=== PATIENT | female | born 1930 | race Caucasian/White ===

== ENCOUNTER → 2016-05-08 | Outpatient (CLI) | payer MEDICARE, OTHER ==
[~2016-05-08] MED LIST: ALDA25TA2 PO; ASPI81TA83 OR; ASPI81TA85 PO; ATEN25TA PO; BABY81CH PO; BACT800T5 PO; CLAR10CA3 PO; ELIQ2.5T PO; EPINEPHRINE; FLON0.054; FURO20TA2 PO; LISI20TA5 OR; MULTCAP PO; NITR0.4S SL; POTA10CA PO; SPIR25TA2 PO; THERGRAN PO; VITA100072 PO; VITA50003 PO; VITMTA PO; ZOCO10TA PO; ZOCO5TAB PO; ZYVO100T PO
--- NOTE | 2016-05-08 14:10 | REP ---
Chest x-ray PA and lateral 05/08/2016. Clinical history: Cough. Comparison: 03/20/2016, 03/06/2016. Findings: Lungs are well inflated. The bilateral pleural effusions are smaller than on the previous examination. Some linear atelectatic changes in both lower lung zones left more than right. Cardiomegaly with left atrial and ventricular enlargement is noted. The aorta is calcified tortuous and without aneurysm. Airway is intact. There is some venous hypertension without pulmonary edema. I see underlying interstitial changes without definite interstitial edema or Shanice B lines. No parenchymal mass, nodule or dense consolidation. Bones show demineralization with some degenerative change. Impression: 1. Cardiomegaly with left ventricular enlargement. Some mild venous hypertension without edema. There is small bilateral effusions. There is underlying interstitial fibrotic change without definite interstitial edema. 2. Tortuous calcified aorta without aneurysm. 3. Airway intact. Bones demineralized. Signed by Lj Esparza MD 05/08/2016 02:57 P
== END ==
LOC: M WUC 11:24
PROVIDERS: ATTEND Physician Assistant
DX: R93.1 Abnormal findings on diagnostic imaging of heart and coronary circulation (principal)

== ENCOUNTER → 2016-05-08 | Outpatient (CLI) | payer MEDICARE, OTHER ==
[2016-05-08 17:25] LABS: CALCIUM LEVEL 9.2 MG/DL (8.8-10.2); CREATININE FOR GFR 1.09 MG/DL (0.55-1.02); GLOMERULAR FILTRATION RATE 50.5 (>32); POTASSIUM SERUM 4.2 MEQ/L (3.5-5.1)
== END ==
LOC: M WUC 11:30
PROVIDERS: ATTEND Physician Assistant Medical
DX: I50.20 Unspecified systolic (congestive) heart failure (principal); R93.1 Abnormal findings on diagnostic imaging of heart and coronary circulation

== ENCOUNTER → 2016-07-03 | Outpatient (CLI) | payer MEDICARE, OTHER ==
[2016-07-03 19:05] LABS: CALCIUM LEVEL 8.5 MG/DL (8.8-10.2); CREATININE FOR GFR 1.08 MG/DL (0.55-1.02); GLOMERULAR FILTRATION RATE 51.1 (>32); POTASSIUM SERUM 3.3 MEQ/L (3.5-5.1)
== END ==
LOC: M WUC 14:29
PROVIDERS: ATTEND Physician Assistant Medical
DX: I50.20 Unspecified systolic (congestive) heart failure (principal)

== ENCOUNTER → 2016-08-24 | Outpatient (CLI) | payer MEDICARE, OTHER ==
[2016-08-24 14:24] LABS: BASO % 0.7 % (0.0-1.0); EOS # 0.2 K/mm3 (0.0-0.50); EOS % 4.6 % (0.0-3.0); LYMPH # 2.2 K/mm3 (1.5-4.5); LYMPH % 40.4 % (24.0-44.0); MEAN CORPUSCULAR HEMOGLOBIN 31.5 pg (27.0-33.0); MEAN CORPUSCULAR HGB CONC 32.4 g/dl (32.0-36.5); MEAN CORPUSCULAR VOLUME 97.2 fl (80.0-96.0); MONO # 0.3 K/mm3 (0.0-0.8); NEUTROPHILS # 2.6 K/mm3 (1.8-7.7); NEUTROPHILS % 47.8 % (36.0-66.0); RED CELL DISTRIBUTION WIDTH 13.4 % (11.5-14.5); WHITE BLOOD COUNT 5.5 K/mm3 (4.0-10.0)
[2016-08-24 14:26] LABS: ALBUMIN 3.1 GM/DL (3.2-5.2); ALBUMIN/GLOBULIN RATIO 0.86 (1.00-1.93); BILIRUBIN,TOTAL 1.4 MG/DL (0.2-1.0); CALCIUM LEVEL 9.2 MG/DL (8.8-10.2); CREATININE FOR GFR 1.24 MG/DL (0.55-1.02); GLOMERULAR FILTRATION RATE 43.6 (>32); TOTAL PROTEIN 6.7 GM/DL (6.4-8.2)
== END ==
LOC: M WUC 11:12
PROVIDERS: ATTEND Physician Assistant Medical
DX: I50.20 Unspecified systolic (congestive) heart failure (principal)

== ENCOUNTER → 2016-09-11 | Outpatient (CLI) | payer MEDICARE, OTHER ==
[2016-09-11 17:32] LABS: CALCIUM LEVEL 9.2 MG/DL (8.8-10.2); CREATININE FOR GFR 1.16 MG/DL (0.55-1.02); POTASSIUM SERUM 4.2 MEQ/L (3.5-5.1)
== END ==
LOC: M WUC 11:38
PROVIDERS: ATTEND Physician Assistant Medical
DX: I50.20 Unspecified systolic (congestive) heart failure (principal)

== ENCOUNTER → 2016-11-23 | Outpatient (CLI) | payer MEDICARE, OTHER ==
[~2016-11-23] MED LIST changes: +VITA1CAP40 PO; -VITA50003 PO
[2016-11-23 14:04] LABS: EOS # 0.3 K/mm3 (0.0-0.50); EOS % 6.2 % (0.0-3.0); MEAN CORPUSCULAR HEMOGLOBIN 32.4 pg (27.0-33.0); MEAN CORPUSCULAR VOLUME 95.3 fl (80.0-96.0); MONO # 0.3 K/mm3 (0.0-0.8); MONO % 6.4 % (0.0-5.0); NEUTROPHILS # 2.4 K/mm3 (1.8-7.7); NEUTROPHILS % 47.6 % (36.0-66.0); RED CELL DISTRIBUTION WIDTH 14.1 % (11.5-14.5); WHITE BLOOD COUNT 5.1 K/mm3 (4.0-10.0)
[2016-11-23 14:06] LABS: ALBUMIN 3.3 GM/DL (3.2-5.2); ALBUMIN/GLOBULIN RATIO 0.89 (1.00-1.93); BILIRUBIN,TOTAL 2.4 MG/DL (0.2-1.0); CALCIUM LEVEL 9.1 MG/DL (8.8-10.2); CREATININE FOR GFR 1.25 MG/DL (0.55-1.02); GLOMERULAR FILTRATION RATE 43.2 (>32); POTASSIUM SERUM 4.4 MEQ/L (3.5-5.1)
== END ==
LOC: M WUC 08:47
PROVIDERS: ATTEND Physician Assistant Medical
DX: I50.20 Unspecified systolic (congestive) heart failure (principal)

== ENCOUNTER → 2016-12-12 | Outpatient (CLI) | payer MEDICARE, OTHER ==
[2016-12-12 17:45] LABS: CALCIUM LEVEL 8.7 MG/DL (8.8-10.2); CREATININE FOR GFR 1.17 MG/DL (0.55-1.02); GLOMERULAR FILTRATION RATE 46.6 (>32); POTASSIUM SERUM 4.4 MEQ/L (3.5-5.1)
== END ==
LOC: M WUC 12:33
PROVIDERS: ATTEND Physician Assistant Medical
DX: I50.20 Unspecified systolic (congestive) heart failure (principal)

== ENCOUNTER 2017-03-10 13:53 | Inpatient (IN) | payer MEDICARE, OTHER ==
[~2017-03-10] VITALS: Ht 157.5 cm; Wt 56.2 kg
[2017-03-10 15:35] LABS: BASO % 0.6 % (0.0-1.0); EOS # 0.3 10^3/uL (0.0-0.50); IMMATURE GRANULOCYTE % 0.3 % (0-0); LYMPH # 2.6 10^3/uL (1.5-4.5); LYMPH % 38.8 % (24.0-44.0); MEAN CORPUSCULAR HEMOGLOBIN 30.8 pg (27.0-33.0); MEAN CORPUSCULAR HGB CONC 33.1 g/dl (32.0-36.5); MEAN CORPUSCULAR VOLUME 93.3 fl (80.0-96.0); MONO # 0.5 10^3/uL (0.0-0.8); MONO % 7.9 % (0.0-5.0); NEUTROPHILS # 3.3 10^3/uL (1.8-7.7); NEUTROPHILS % 48.4 % (36.0-66.0); PLATELET COUNT, AUTOMATED 152 10^3/uL (150-450); RED CELL DISTRIBUTION WIDTH 14.4 % (11.5-14.5); WHITE BLOOD COUNT 6.8 10^3/uL (4.0-10.0)
[2017-03-10 15:38] LABS: INR 1.31
[2017-03-10 15:50] LABS: ALBUMIN 3.3 GM/DL (3.2-5.2); ALBUMIN/GLOBULIN RATIO 0.92 (1.00-1.93); BILIRUBIN,DIRECT 0.8 MG/DL (0.0-0.2); CALCIUM LEVEL 8.9 MG/DL (8.8-10.2); CREATININE FOR GFR 1.25 MG/DL (0.55-1.02); GLOMERULAR FILTRATION RATE 43.1 (>32); POTASSIUM SERUM 3.5 MEQ/L (3.5-5.1); TOTAL PROTEIN 6.9 GM/DL (6.4-8.2)
[2017-03-10] MEDS ORDERED: ISOVUE-370 76% 100ML VIAL (Q9967) As Ordered ONE (16:11)
[2017-03-10] MEDS ORDERED: LASI40TA PO ×2 (18:10)
[2017-03-10] MEDS ORDERED: POTA20TA PO (18:10)
[2017-03-10] MEDS ORDERED: ONDANSETRON 4MG/2ML VIAL (J2405) IV PRN (18:30)
[2017-03-10] MEDS: ACETAMINOPHEN TAB 650MG DOSE (2X325MG) PO PRN (19:08)
[2017-03-10] MEDS: FUROSEMIDE 40 MG/4 ML VIAL (J1940) IV SCH (19:08)
--- NOTE | 2017-03-10 20:39 | HPEPDOC ---
General Date of Admission 03/10/2017 Other Providers Primary care provider: ARMIDA Rush Acquisition Editor: Dr. Snow Attending Physician: RORY COLON MD Chief Complaint The patient is a 86-year-old female admitted with a reason for visit of Weakness. Source: Patient, Family, Old records Exam Limitations: Mild cognitive slowing Associated Symptoms: Chest Pain, Shortness of breath, Weakness History of Present Illness Ms. Hernandez is an 86-year-old female who presents to [facility]'s Emergency Department with weakness and chest pain. She is accompanied by her . Past medical history is significant for: diastolic congestive heart failure with an EF of 60%, coronary artery disease, hypertension, dyslipidemia, severe aortic stenosis, history of diverticulitis, history of MRSA, osteoarthritis, adenomatous polyp, atrial fibrillation, left index finger osteomyelitis. Patient states that she developed symptoms this morning where her legs were shaking, she had no energy, felt weak, and had diffuse body-wide pain. She felt exhausted. She subsequently developed chest pain, which she described as "light" with associated radiation up her neck and down her left arm. No diaphoresis. This pain lasted approximately 10-15 minutes. All these symptoms came on abruptly without provocation. As quickly as they came on, they abated in approximately 10 minutes. The patient still felt quite anxious and wanted to be evaluated in the Emergency Department. She is currently admitting to continued numbness and tingling in her upper and lower extremities with continued pain in her legs. She does not, nor during my entire evaluation, admit to any kind of abdominal pain, tenderness, or distention. Further denies fever, night sweats, chills, itchy/watery eyes, runny nose, sore throat, cough, nausea, vomiting, hearing changes, headache, peripheral edema. She does state that she feels as though this can all be attributed to a medication that her primary care provider has her on. However, in clarification, her states that her ultimate hoops scoreboard operator has her on a medication, Lasix, for her congestive heart failure that was diagnosed several years ago (2014). They have regular appointments with their primary care provider who monitors labs. The patient recently saw her PCP in February and has another appointment scheduled in early March for follow-up labs. The patient's states that her PCP also has her on potassium since she is on the Lasix. According to the , the PCP is regularly monitoring the patient in order to adjust her Lasix dosage. She is on quite a large dose at 240mg divided daily dose. The patient is aware of her severe aortic stenosis and has discused with her ultimate hoops scoreboard operator her wish to not pursue any further intervention. During my evaluation, the patient re- iterated that she does not want any further intervention regarding her severe aortic stenosis. Work-up in the Emergency department included a BNP which was 2316. An EKG revealed atrial fibrillation with an occasional PVC. Vital signs were within optimal range. CBC was within normal range. Besides a slight worsening of patient's creatinine at 1.25, the BMP was essential negative. According to the Emergency Department personnel, patient was complaining of abdominal pain so imaging was obtained. Reports are pending. Hospitalist service was consulted and patient was admitted for further medical management. Home Medications Scheduled Apixaban Base (Eliquis) 2.5 Mg Tab, 2.5 MG PO BID, (Reported) Ergocalciferol (Vitamin D) 50,000 Unit Cap, 50,000 UNIT PO Q2WK, (Reported) TAKES EVERY OTHER SUNDAY Furosemide (Lasix) 40 Mg Tab, 80 MG PO BID, (Reported) QAM & 1500 Furosemide (Lasix) 40 Mg Tab, 40 MG PO DAILY, (Reported) @ 1100 Multivitamins *[facility] STOCKED* (Thera M Plus *[facility] STOCK[facility]*) 1 Tab Tab, 1 TAB PO DAILY, (Reported) Potassium Chloride (Klor-Con M20) 20 Meq Tabcr, 40 MEQ PO BID, (Reported) Allergies Coded Allergies: Bee Venom (Unverified Allergy, Severe, ANAPHYLAXIS, 09/23/14) Codeine (Verified Allergy, Unknown, UNKNOWN, 07/29/12) Morphine (Verified Adverse Reaction, Mild, LOW BP, 09/23/14) Past Medical History Medical History 1. Congestive heart failure, diastolic, EF 60% 2. Coronary artery disease 3. Hypertension 4. Dyslipidemia 5. Severe aortic stenosis 6. History of diverticulitis 7. History of MRSA 8. Osteoarthritis 9. Adenomatous polyp 10. Osteomyelitis of left index finger Surgical History 1. Colonoscopy 2. Right knee arthroscopy 3. Left index finger paroncychia irrigation and debridement 4. Left index finger removal of nail plate 5. Hysterectomy 6. Appendectomy Family History Father: , 75, old age, heart disease Mother: , 60s, surgical complications Brother: , 86, pneumonia Son: , 50, stage IV cancer Social History Lives with . Eight adult children. 19 grandchildren. No pets in the home. Prior employment in the [employer] business. Denies tobacco use, ever. Drinks the occasional beer. Denies illicit drug use. Admits to travel, but nothing recently. Review of Symptoms Constitutional: Reports: Weakness, Fatigue, Denies: Chills, Fever, Malaise, Night Sweats Eyes: Denies: Pain, Vision change, Conjunctivae inflammation, Eyelid inflammation ENT: Denies: Head Aches, Dysphagia, Sinus Congestion, Post Nasal Drip, Sore Throat, Epistaxis Skin: Denies: Rash, Lesions, Jaundice, Bruising Pulmonary: Reports: Dyspnea, Denies: Cough Cardiovascular: Reports: Chest Pain, Orthopnea, Denies: Palpitations, Paroxysmal Noc. Dyspnea, Edema, Lt Headedness Gastrointestinal: Denies: Nausea, Vomiting, Abdominal Pain, Diarrhea, Constipation, Melena, Hematochezia Genitourinary: Denies: Dysuria, Frequency, Hematuria Hematologic: Denies: Bruising, Bleeding Excessively, Petecchia, Purpura, Enlarged Lymph Nodes Musculoskeletal: Reports: Leg Pain Neurological: Reports: Weakness, Numbness (Arms, legs) Physical Examination General Exam: Positive: Alert, Cooperative, No Acute Distress Eye Exam: Positive: PERRLA, Conjunctiva & lids normal, EOMI, Other Eye Symptoms (Some mild watery discharge noted from eyes), Negative: Sclera icteric, Ptosis ENT Exam: Positive: Atraumatic, Mucous membr. moist/pink, Pharynx Normal, Tongue Midline, Negative: Pharyngeal Edema, Nares Patent Neck Exam: Positive: Supple, +2 carotid pulse wo bruit, Negative: JVD, thyromegaly, Lymphadenopathy Chest Exam: Positive: Clear to auscultation, Normal air movement, Diminished ( At lung bases, bilaterally) Heart Exam: Positive: Irregular Rhythm, Murmurs (Grade II-III/ systolic murmur appreciated along the right sternal border, 2nd intercostal space) Telemetry: Positive: Atrial fibrillation Abdomen Exam: Positive: Normal bowel sounds, Soft, Other (Tympanic throughout) , Negative: Tenderness, Hepatospenomegaly, Mass Extremity Exam: Negative: Clubbing, Cyanosis, Edema, Normal pulses (Atrial fibrillation), Tenderness, Swelling Skin Exam: Negative: Rash, Lesion Neuro Exam: Positive: Normal Speech, Cranial Nerves 3-12 NL Other physical findings Chest x-ray IMPRESSION: Report pending Abdominal x-ray IMPRESSION: Report pending CT abdomen and pelvis IMPRESSION: Report pending CT chest angiography IMPRESSION: Report pending Vital Signs Vital Signs Date Time Temp Pulse Resp B/P (MAP) Pulse Ox O2 Delivery O2 Flow Rate FiO2 03/10/17 17:09 Room Air 03/10/17 16:53 84 98 03/10/17 16:48 123/79 (94) 03/10/17 15:23 20 03/10/17 13:54 98.2 Height (in): 62 Weight (kg): 54.5 BMI (kg): 22 Laboratory Data Labs 24H Laboratory Tests 2 03/10/17 14:49: Immature Granulocyte % (Auto) 0.3H, White Blood Count 6.8, Red Blood Count 5.06 , Hemoglobin 15.6, Hematocrit 47.2H, Mean Corpuscular Volume 93.3, Mean Corpuscular Hemoglobin 30.8, Mean Corpuscular Hemoglobin Concent 33.1, Red Cell Distribution Width 14.4, Platelet Count 152, Neutrophils (%) (Auto) 48.4, Lymphocytes (%) (Auto) 38.8, Monocytes (%) (Auto) 7.9H, Eosinophils (%) (Auto) 4.0H, Basophils (%) (Auto) 0.6, Neutrophils # (Auto) 3.3, Lymphocytes # (Auto) 2.6, Monocytes # (Auto) 0.5, Eosinophils # (Auto) 0.3, Basophils # (Auto) 0.0, Immature Granulocyte # (Auto) 0.0, Nucleated Red Blood Cells % (auto) 0.0, Prothrombin Time 16.6H, Prothromb Time International Ratio 1.31, Activated Partial Thromboplast Time 31.2, Anion Gap 7L, Glomerular Filtration Rate 43.1, Calcium Level 8.9, Aspartate Amino Transf (AST/SGOT) 32, Alanine Aminotransferase (ALT/SGPT) 20, Alkaline Phosphatase 103, Total Bilirubin 2.0H, Direct Bilirubin 0.8H, Total Creatine Kinase 93, Creatine Kinase MB 2.5, Creatine Kinase MB Relative Index 2.68, Troponin I 0.08, UD-Kgd-P-Type Natriuretic Peptide 2316H, Total Protein 6.9, Albumin 3.3, Albumin/Globulin Ratio 0.92L, Lipase 159 03/10/17 15:24: CBC/BMP Laboratory Tests 03/10/17 14:49 Red Blood Count 5.06, Mean Corpuscular Volume 93.3, Mean Corpuscular Hemoglobin 30.8, Mean Corpuscular Hemoglobin Concent 33.1, Red Cell Distribution Width 14.4 , Neutrophils (%) (Auto) 48.4, Lymphocytes (%) (Auto) 38.8, Monocytes (%) (Auto ) 7.9 H, Eosinophils (%) (Auto) 4.0 H, Basophils (%) (Auto) 0.6, Neutrophils # ( Auto) 3.3, Lymphocytes # (Auto) 2.6, Monocytes # (Auto) 0.5, Eosinophils # (Auto ) 0.3, Basophils # (Auto) 0.0 Plan / VTE VTE Prophylaxis Ordered?: Yes (Eliquis) Plan Plan Congestive heart failure exacerbation due to severe aortic stenosis - Admit to PCU - Lasix with net negative balance - Obtain updated echocardiogram - Strict I/O's - VS - Daily CBC and BMP - 2g salt diet - Cardiology consult - Optimize fluid status and diuretic - Could consider palliative discussion as patient has verbally iterated that she does not want intervention performed for her severe Pain, diffuse - Imaging obtained - Obtaining abdominal ultrasound - No antibiotics needed at this time - Trend CRP - Trend cardiac markers (first set were within optimal range) Atrial fibrillation - Controlled - No beta adebayo due to severe aortic stenosis - Continue Eliquis Hypertension - Adjusted Lasix dose - Stable Disposition Admit: PCU Anticipated hospitalization: < 2 nights Attending: Dr. Estrada IVF: Discontinue Diet: Continue Current (No added salt diet) Activity: Continue Current Medications: Change to IV (Lasix) Diagnostics: Check Labs, Repeat Labs in AM, TTE Anticipated Discharge: Home CLAUDE GURROLA Mar 10, 2017 18:06
[2017-03-10 20:45] VITALS: BP 120/73
[2017-03-10] MEDS ORDERED: CARVedilol 3.125 MG TAB PO SCH (21:00)
[2017-03-10] MEDS: APIXABAN 2.5 MG TAB (ELIQUIS) PO SCH (21:56)
[2017-03-10] MEDS: SENOKOT S TAB PO SCH (21:56)
[2017-03-11] VITALS (7 sets, daily range): BP systolic 98–144; BP diastolic 58–82
[2017-03-11] MEDS: FUROSEMIDE 40 MG/4 ML VIAL (J1940) IV SCH ×3 (00:11→17:00)
[2017-03-11 06:08] LABS: MEAN CORPUSCULAR HGB CONC 33.5 g/dl (32.0-36.5); MEAN CORPUSCULAR VOLUME 92.6 fl (80.0-96.0); PLATELET COUNT, AUTOMATED 140 10^3/uL (150-450); RED CELL DISTRIBUTION WIDTH 14.3 % (11.5-14.5); WHITE BLOOD COUNT 5.7 10^3/uL (4.0-10.0)
[2017-03-11 06:22] LABS: BILIRUBIN,TOTAL 2.1 MG/DL (0.2-1.0); CALCIUM LEVEL 8.1 MG/DL (8.8-10.2); CREATININE FOR GFR 1.15 MG/DL (0.55-1.02); GLOMERULAR FILTRATION RATE 47.4 (>32); MAGNESIUM LEVEL 2.1 MG/DL (1.8-2.4); TOTAL PROTEIN 5.8 GM/DL (6.4-8.2)
[2017-03-11 06:30] LABS: ALBUMIN/GLOBULIN RATIO 0.81 (1.00-1.93)
[2017-03-11 06:31] LABS: ALBUMIN 2.6 GM/DL (3.2-5.2)
[2017-03-11] MEDS ORDERED: POTASSIUM CHLORIDE 10 MEQ SR TABLET PO ONE (06:45)
--- NOTE | 2017-03-11 08:47 | REP ---
CHEST, PORTABLE: AP portable view of the chest is performed and compared to prior study of 05/08/2016. There is cardiomegaly again noted. I do not see evidence of an acute infiltrate. There is blunting of the costophrenic angles bilaterally which is stable representing chronic small amount of bilateral pleural fluid or thickening. There is calcification and tortuosity of the thoracic aorta. There is curvature of the thoracolumbar spine convex to the left with degenerative changes. IMPRESSION: Stable cardiomegaly and stable small amount of bilateral pleural fluid or thickening. Signed by Mike Turk MD 03/11/2017 05:27 P
--- NOTE | 2017-03-11 08:51 | REP ---
KUB ABDOMEN AND PELVIS: Two KUB films of abdomen and pelvis are performed. There is no evidence of small bowel obstruction. Mild air is scattered throughout the GI tract without significant bowel distention. Diffuse vascular calcifications are present. There are multiple phleboliths in the pelvis. There is a diffuse osteopenia. There are degenerative changes of the spine and hips. IMPRESSION: No evidence of bowel obstruction. Diffuse vascular calcifications in the abdomen and pelvis. Signed by Mike Turk MD 03/11/2017 05:27 P
[2017-03-11] MEDS: SENOKOT S TAB PO SCH ×2 (09:00→20:55)
[2017-03-11] MEDS: APIXABAN 2.5 MG TAB (ELIQUIS) PO SCH ×2 (09:23→20:55)
[2017-03-11] MEDS: PANTOPRAZOLE 40MG TAB (PROTONIX) PO SCH (09:23)
[2017-03-11] MEDS: MULTIVITAMINS/MINERALS THERAP 1 TAB PO SCH (09:23)
--- NOTE | 2017-03-11 09:25 | REP ---
CT ANGIOGRAM OF THE CHEST: TECHNIQUE: Axial contrast enhanced images from the thoracic inlet to the upper abdomen using 100 mL Isovue 370 intravenous contrast material with multiplanar reformations. There is no CT evidence of pulmonary embolism. There is no thoracic aortic aneurysm or dissection. There are moderate atherosclerotic calcifications of the thoracic aorta. There is mild cardiomegaly. There are small bilateral pleural effusions. There is mild bibasilar atelectasis/infiltrate. No adenopathy is seen in the chest. There is no pericardial effusion. Subcentimeter nodule in the right middle lobe, another in the right lower lobe, another in the left upper lobe and yet another in the left lower lobe are stable compared to prior CT of the chest 06/27/2010. IMPRESSION: No CT evidence of pulmonary embolism. Cardiomegaly. Small bilateral effusions with mild bibasilar atelectasis/infiltrate. Signed by Mike Turk MD 03/11/2017 05:28 P
--- NOTE | 2017-03-11 09:49 | REP ---
CT ABDOMEN AND PELVIS WITH IV CONTRAST: TECHNIQUE: Axial contrast enhanced images from the lung bases to the pubic symphysis using 100 mL Isovue 370 intravenous contrast material with multiplanar reformations. There is a cyst in the right lobe of the liver. The spleen appears unremarkable. Left adrenal nodule is stable compared to prior study of 01/16/2012 most consistent with an adenoma. Pancreas is unremarkable. Small cyst is seen in each kidney without hydronephrosis. There is ectasia of the abdominal aorta without aneurysm. I see no significant adenopathy in the abdomen or pelvis. No free air is seen. There is extensive sigmoid diverticulosis with mild thickening of a segment of the sigmoid and surrounding streaky density most consistent with sigmoid diverticulitis. There is mild free fluid in the pelvis. No pelvic mass is seen. IMPRESSION: Sigmoid diverticulitis. Mild free fluid. No free air. No other acute finding. Signed by Mike Turk MD 03/11/2017 05:29 P
--- NOTE | 2017-03-11 11:25 | IPNPDOC ---
Subjective Date Seen The patient was seen on 03/11/17. Subjective Chief Complaint/HPI The patient is a 86-year-old female admitted with a reason for visit of CHF. Events since last encounter feeling much better today. Feels stronger, denies any shakiness of the legs. denies any chest pains. no fever or chills, no abdominal pain , nausea or vomiting or diarrhea. Objective Physical Examination General Exam: Positive: Alert, Cooperative, No Acute Distress Eye Exam: Positive: PERRLA, Conjunctiva & lids normal, EOMI, Other Eye Symptoms (Some mild watery discharge noted from eyes), Negative: Sclera icteric, Ptosis ENT Exam: Positive: Atraumatic, Mucous membr. moist/pink, Pharynx Normal, Tongue Midline, Negative: Pharyngeal Edema, Nares Patent Neck Exam: Positive: Supple, +2 carotid pulse wo bruit, Negative: JVD, thyromegaly, Lymphadenopathy Chest Exam: Positive: Clear to auscultation, Normal air movement, Diminished ( At lung bases, bilaterally) Heart Exam: Positive: Irregular Rhythm, Murmurs (Grade II-III/ systolic murmur appreciated along the right sternal border, 2nd intercostal space) Telemetry: Positive: Atrial fibrillation Abdomen Exam: Positive: Normal bowel sounds, Soft, Other (Tympanic throughout) , Negative: Tenderness, Hepatospenomegaly, Mass Extremity Exam: Negative: Clubbing, Cyanosis, Edema, Normal pulses (Atrial fibrillation), Tenderness, Swelling Skin Exam: Negative: Rash, Lesion Neuro Exam: Positive: Normal Speech, Cranial Nerves 3-12 NL Assessment /Plan Problems (1) CHF (congestive heart failure) Status: Acute Problem Text: diastolic CHF will continue with IV lasix new echo pending. (2) Aortic stenosis Status: Chronic Problem Text: patient does not want surgery. wants only medical management. (3) HTN (hypertension) Status: Chronic (4) HLD (hyperlipidemia) Status: Chronic (5) CAD (coronary artery disease) Status: Chronic Problem Text: with history of AMI in the past. (6) Afib Status: Chronic Problem Text: on eliquis. Plan/VTE VTE Prophylaxis Ordered?: Yes (Eliquis) Plan IVF: Discontinue Diet: Continue Current (No added salt diet) Activity: Continue Current Medications: Change to IV (Lasix) Diagnostics: Check Labs, Repeat Labs in AM, TTE Anticipated Discharge: Home VS[facility] Vital Signs/I&O Vital Signs Date Time Temp Pulse Resp B/P (MAP) Pulse Ox O2 Delivery O2 Flow Rate FiO2 03/11/17 08:00 99.2 76 20 118/77 (91) 95 Room Air I&O- Last 24 Hours up to 6 AM 03/12/17 06:00 Intake Total 150 ml Output Total 575 ml Balance -425 ml Laboratory Data 24H LABS Laboratory Tests 2 03/10/17 14:49: Immature Granulocyte % (Auto) 0.3H, White Blood Count 6.8, Red Blood Count 5.06 , Hemoglobin 15.6, Hematocrit 47.2H, Mean Corpuscular Volume 93.3, Mean Corpuscular Hemoglobin 30.8, Mean Corpuscular Hemoglobin Concent 33.1, Red Cell Distribution Width 14.4, Platelet Count 152, Neutrophils (%) (Auto) 48.4, Lymphocytes (%) (Auto) 38.8, Monocytes (%) (Auto) 7.9H, Eosinophils (%) (Auto) 4.0H, Basophils (%) (Auto) 0.6, Neutrophils # (Auto) 3.3, Lymphocytes # (Auto) 2.6, Monocytes # (Auto) 0.5, Eosinophils # (Auto) 0.3, Basophils # (Auto) 0.0, Immature Granulocyte # (Auto) 0.0, Nucleated Red Blood Cells % (auto) 0.0, Prothrombin Time 16.6H, Prothromb Time International Ratio 1.31, Activated Partial Thromboplast Time 31.2, Anion Gap 7L, Glomerular Filtration Rate 43.1, Calcium Level 8.9, Aspartate Amino Transf (AST/SGOT) 32, Alanine Aminotransferase (ALT/SGPT) 20, Gamma Glutamyl Transpeptidase 57H, Alkaline Phosphatase 103, Total Bilirubin 2.0H, Direct Bilirubin 0.8H, Total Creatine Kinase 93, Creatine Kinase MB 2.5, Creatine Kinase MB Relative Index 2.68, Troponin I 0.08, C-Reactive Protein, Quantitative 0.47H, UI-Ash-P-Type Natriuretic Peptide 2316H, Total Protein 6.9, Albumin 3.3, Albumin/Globulin Ratio 0.92L, Lipase 159 03/10/17 15:24: Urine Appearance CLEAR, Urine Color YELLOW, Urine pH 7.0, Urine Specific [place] 1.004, Urine Protein NEGATIVE, Urine Glucose (UA) NEGATIVE, Urine Ketones NEGATIVE, Urine Urobilinogen 0.2, Urine Bilirubin NEGATIVE, Urine Leukocyte Esterase NEGATIVE, Urine Blood NEGATIVE, Urine Nitrite NEGATIVE, Urine WBC (Auto) 1, Urine RBC (Auto) 1, Urine Hyaline Casts (Auto) 0, Urine Bacteria (Auto) 1+H, Urine Squamous Epithelial Cells 0, Urine Mucus (Auto) SMALL , Urine Sperm (Auto) 03/10/17 19:54: Total Creatine Kinase 75, Creatine Kinase MB 2.3, Creatine Kinase MB Relative Index 3.06, Troponin I 0.09 03/11/17 05:17: Nucleated Red Blood Cells % (auto) 0.0, Anion Gap 8, Glomerular Filtration Rate 47.4, Calcium Level 8.1L, Aspartate Amino Transf (AST/SGOT) 26, Alanine Aminotransferase (ALT/SGPT) 17, Alkaline Phosphatase 80, Total Bilirubin 2.1H, Total Creatine Kinase 68, Creatine Kinase MB 2.1, Creatine Kinase MB Relative Index 3.08, Troponin I 0.10, C-Reactive Protein, Quantitative 0.64H, Total Protein 5.8L, Albumin 2.6#L, Albumin/Globulin Ratio 0.81L, Blood Urea Nitrogen 14, Creatinine 1.15H, Sodium Level 141, Potassium Level 3.0L, Chloride Level 105 , Carbon Dioxide Level 28, Magnesium Level 2.1 CBC/BMP Laboratory Tests 03/10/17 14:49 Red Blood Count 5.06, Mean Corpuscular Volume 93.3, Mean Corpuscular Hemoglobin 30.8, Mean Corpuscular Hemoglobin Concent 33.1, Red Cell Distribution Width 14.4 , Neutrophils (%) (Auto) 48.4, Lymphocytes (%) (Auto) 38.8, Monocytes (%) (Auto ) 7.9 H, Eosinophils (%) (Auto) 4.0 H, Basophils (%) (Auto) 0.6, Neutrophils # ( Auto) 3.3, Lymphocytes # (Auto) 2.6, Monocytes # (Auto) 0.5, Eosinophils # (Auto ) 0.3, Basophils # (Auto) 0.0 03/11/17 05:17 Red Blood Count 4.58, Mean Corpuscular Volume 92.6, Mean Corpuscular Hemoglobin 31.0, Mean Corpuscular Hemoglobin Concent 33.5, Red Cell Distribution Width 14.3 , Calcium Level 8.1 L, Aspartate Amino Transf (AST/SGOT) 26, Alanine Aminotransferase (ALT/SGPT) 17, Alkaline Phosphatase 80, Total Bilirubin 2.1 H, Total Protein 5.8 L, Albumin 2.6 #L KATIE TORRE MD Mar 11, 2017 11:25
--- NOTE | 2017-03-11 12:22 | REP ---
RIGHT UPPER QUADRANT ULTRASOUND: Real-time sonographic evaluation of the right upper quadrant performed. Gallbladder demonstrates no evidence of intraluminal sludge or calculi, wall thickening, or pericholecystic fluid. There is no intrahepatic or extrahepatic biliary dilatation, common bile duct measuring 3 mm in diameter. A cyst is seen in the right lobe of the liver at 3.1 x 2.2 x 3.2 cm. Pancreas is not optimally seen due to overlying bowel gas, but no gross pancreatic mass is seen. Right kidney demonstrates no hydronephrosis with normal size at 10.6 x 4.6 x 3.5 cm. A cyst is seen in the upper pole measuring 1 cm in diameter. Incidental note is made of a right pleural effusion. IMPRESSION: No gallstones, biliary dilatation, or free fluid. There does appear to be a right pleural effusion. There is a cyst in the right lobe of the liver and in the upper pole of the right kidney. Signed by Mike Turk MD 03/11/2017 05:35 P
--- NOTE | 2017-03-11 21:22 | ECGEPIP ---
Stationary ECG Study [facility] - ED Test Date: 2017-03-10 Pat Name: BRONSON ARNOLD Department: Room: - Gender: F Reverse Engineer: RODRIGUEZ : 1930 Requested By: JOHNNY Aragon Order Number: [id number] Reading MD: Mariah Evans Measurements Intervals Julian Rate: 80 P: HI: 0 QRS: -65 QRSD: 130 T: 107 QT: 438 QTc: 508 Interpretive Statements ATRIAL FIBRILLATION WITH ABERRANT CONDUCTION OR VENTRICULAR PREMATURE COMPLEXES MARKED LEFT AXIS DEVIATION POSSIBLE RIGHT VENTRICULAR CONDUCTION DELAY POSSIBLE ANTERIOR MYOCARDIAL INFARCTION, OF INDETERMINATE AGE MODERATE T-WAVE ABNORMALITY, CONSIDER LATERAL ISCHEMIA PRIOR SINUS 09/01/15 Electronically Signed On 03-11-2017 21:22:22 EST by Mariah Evans
--- NOTE | 2017-03-11 21:25 | CR ---
DATE OF CONSULTATION: 03/11/2017 I was asked by Dr. Garza to see Mrs. Hernandez for congestive heart failure. She is an 86-year-old female who carries a history of chronic atrial fibrillation. She has known aortic stenosis that was felt to be severe based on echocardiogram 2 years ago and she also has fairly advanced dementia. She presented to the hospital with complaints of weakness and leg pain and also later complained about chest discomfort. Unfortunately, due to her cognitive impairment, today she cannot really provide much of the history. According to her though, she continued to complain throughout the day yesterday about poorly described discomfort over lower aspect of her chest both on the right and left side without obvious radiation. She did not complain much about shortness of breath. Today, she cannot really specify what was in nature of her leg discomfort either. Most of the history is provided from hospital records and from her , who is at bedside. She apparently, at her baseline, is able to ambulate with the assistance of a walker. She does get relatively easily short of breath. As a rule she does not have much peripheral edema and they weigh her every day and increase the dose of diuretic in response to increased weight. She reportedly refused to take her medications on Sunday thinking that they were responsible for symptoms of weakness. They follow closely with Dr. Snow and Dr. Boyd's office, and since her last hospitalization she has been seen mostly by the nurse practitioner. Today, the patient tells me that she is feeling "normal." She has not done much ambulation in the hospital but she is in no distress while in bed. She appears to be alert and oriented and fairly appropriate even though she cannot answer simple questions about yesterday. PAST MEDICAL HISTORY: 1. Aortic stenosis felt to be severe based on echocardiogram in this facility in 2014. It revealed preserved left ventricular systolic function, relatively low gradient but dimensional index was 0.21, and the calculated aortic valve area was less than one as well. 2. Poorly documented coronary artery disease. Based on Dr. Snow' consultation from 2014, there was actually no definite evidence for CAD as such. 3. Hypertension. 4. Dyslipidemia. 5. History of osteomyelitis SURGICAL HISTORY: Positive for left index finger surgery, hysterectomy, appendectomy and right knee arthroscopy. OUTPATIENT MEDICATIONS: - Apixaban 2.5 twice a day - vitamin D 50,000 units every 2 weeks - furosemide 80 mg twice a day - multivitamin - potassium chloride FAMILY HISTORY: Her father of old age. He had heart disease in his 70s. Mother out of surgical complications. Son at the age of 50 from cancer. SOCIAL HISTORY: The patient is retired, lives with her . She had eight children. Never smoked and does not drink alcohol other than very rare beer. REVIEW OF SYSTEMS: She denies any recent fever, chills, nausea or vomiting. There is no history of syncope. She rarely complains about chest discomfort. She does have mild exertional dyspnea, not overly limiting with her activity level. Occasional peripheral edema. No abdominal pain. No history of bleeding problems. The rest of review of system is negative. PHYSICAL EXAMINATION: Mrs. Hernandez is an elderly female who appears to be in good spirits and in no obvious distress. Vital signs this morning 118/77 blood pressure. Heart rate was mostly in 60s to 90s, atrial fibrillation. She is afebrile. Saturation is 95% on room air. Fluid balance yesterday was negative 950. She is also almost a liter negative today. Her JVP does not appear elevated. Lungs reveal end inspiratory crackles, more on the right base than left base. Air movement seems adequate. Heart exam reveals somewhat muffled heart sound. There is systolic ejection murmur best heard over the aortic valve area and not overly loud, approximately 3/6 intensity, varies in intensity with . I do not appreciate any distinct closing sound but it is somewhat limited because she is unable to hold her breath for evaluation. Abdomen is soft. No obvious tenderness or rebound tenderness. There is no peripheral edema. Peripheral pulses are palpable. Neurologically, she is alert and oriented times two. Poor memory. I do not appreciate any focal deficits. LABORATORY DATA: CBC is normal but for platelet count 140,000. Basic metabolic panel reveals potassium 3.0, BUN 14, creatinine 1.1, GFR 47. She has normal liver function tests other than mildly elevated bilirubin, albumin is 2.6. She has three sets of negative cardiac enzymes and her proBNP was 2300. Chest x-ray reveals no obvious pleural effusions. There is some vascular distribution and calcification on the thoracic aorta. CT angiography of the chest is negative for pulmonary embolism. ECG reveals rate-controlled atrial fibrillation with underlying conduction system disease. ASSESSMENT AND PLAN: Mrs. Hernandez is an 86 -year-old female who has chronic atrial fibrillation and has known severe aortic stenosis. She presents with symptoms of weakness and chest discomfort that at this point she cannot even recall. The underlying overriding issue is a presence of severe aortic stenosis. Apparently there was a discussion between her, her family and her genetic counselor and decision was made that she would not pursue aortic valve replacement. I still believe that she could be considered a candidate for it however, but I do agree that the candidacy for open heart surgery is certainly problematic. This is something that can be addressed later on. In the interim, I would continue diuresing the patient. She still has crackles and even though there is not much signs of right-sided volume overload, as long as a blood pressure tolerates, I think we can continue diuresis. I will replace her potassium. As far as atrial fibrillation is concerned, it has been chronic, she is rate controlled without any rate controlling medications. I will sign off the patient to Dr. Boyd or Dr. Snow tomorrow.
[2017-03-11] MEDS: ACETAMINOPHEN TAB 650MG DOSE (2X325MG) PO PRN (22:16)
[2017-03-12 00:24] VITALS: BP 110/66
[2017-03-12] MEDS ORDERED: SLF 3 ML SYR IV PRN (03:45)
[2017-03-12 04:21] VITALS: BP 117/66
[2017-03-12] MEDS ORDERED: SLF 3 ML SYR IV SCH (06:00)
[2017-03-12 06:32] LABS: ALBUMIN 2.5 GM/DL (3.2-5.2); ALBUMIN/GLOBULIN RATIO 0.78 (1.00-1.93); CALCIUM LEVEL 8.4 MG/DL (8.8-10.2); CREATININE FOR GFR 1.19 MG/DL (0.55-1.02); GLOMERULAR FILTRATION RATE 45.6 (>32); MAGNESIUM LEVEL 2.2 MG/DL (1.8-2.4); TOTAL PROTEIN 5.7 GM/DL (6.4-8.2)
[2017-03-12 06:39] LABS: MEAN CORPUSCULAR VOLUME 91.4 fl (80.0-96.0); PLATELET COUNT, AUTOMATED 150 10^3/uL (150-450); RED CELL DISTRIBUTION WIDTH 14.1 % (11.5-14.5); WHITE BLOOD COUNT 5.5 10^3/uL (4.0-10.0)
[2017-03-12] MEDS ORDERED: POTASSIUM CHLORIDE 10 MEQ SR TABLET PO ONE (06:45)
--- NOTE | 2017-03-12 07:45 | ECHO ---
DATE OF PROCEDURE: 03/10/2017 REFERRING PHYSICIAN: Dr. Garza The study was performed for indication of atrial fibrillation and aortic stenosis. The patient measures 62 inches and weighs 120 pounds. DIMENSIONS: IVS: 1.5 LV: 4.2 LVPW: 1.2 LA: 4.5 Aorta: 3.4 Ascending aorta: 3.1 RV: 3.6 FINDINGS: This study is of good technical quality. Left ventricle is of normal size and grossly preserved contractility, I estimate ejection fraction (EF) of around 60%. Mild to moderate left ventricular hypertrophy is present. The right ventricle appears grossly normal size. Both atria are severely enlarged. Aortic valve is calcified and there is severe restriction of cusp mobility. The right and left coronary leaflets seems to be completely immobile. There is some mobility preserved on noncoronary cusp. There are prominent degenerative abnormalities of the mitral valve with thickening of the mitral leaflets, mitral annular calcifications and minimal restriction of leaflet mobility. Tricuspid valve appears normal. Pulmonic valve was not well seen. No pericardial effusion is noted. Inferior vena cava appears dilated and has minimal collapse with respiration indicative of high central venous pressure. Aortic root is normal. Limited views of aortic arch also appear normal. Doppler interrogation of aortic valve reveals severe stenosis (mean gradient 33, peak gradient 57 and calculated aortic valve area 0.7 cm square). There is trace aortic insufficiency. There is no significant mitral insufficiency and trivial mitral stenosis with mean mitral gradient 3 mmHg. Approximately moderate tricuspid insufficiency is seen. Calculated pulmonary artery pressure is in 40s, corresponding to moderate pulmonary hypertension. Evaluation of diastolic function is inconclusive due to presence of atrial fibrillation. CONCLUSIONS: 1. Study is of good technical quality. 2. Normal LV size with mild to moderate left ventricular hypertrophy and preserved LV systolic function. 3. Severe aortic stenosis. 4. Mild mitral stenosis. 5. Elevated CVP. 6. Suggestive of moderate pulmonary hypertension. 7. Severe biatrial enlargement. COMMENTS: Subacute bacterial endocarditis (SBE) prophylaxis is not recommended
[2017-03-12 08:00] VITALS: BP 123/68
[2017-03-12 09:00] VITALS: BP 123/68
[2017-03-12] MEDS ORDERED: POTASSIUM CHLORIDE 10 MEQ SR TABLET PO SCH (09:00)
[2017-03-12] MEDS: PANTOPRAZOLE 40MG TAB (PROTONIX) PO SCH (09:43)
[2017-03-12] MEDS: APIXABAN 2.5 MG TAB (ELIQUIS) PO SCH (09:43)
[2017-03-12] MEDS: SENOKOT S TAB PO SCH (09:44)
[2017-03-12] MEDS: MULTIVITAMINS/MINERALS THERAP 1 TAB PO SCH (09:44)
[2017-03-12] MEDS: FUROSEMIDE 40 MG/4 ML VIAL (J1940) IV SCH (09:44)
--- NOTE | 2017-03-12 20:34 | DS.PDOC ---
Discharge Summary General Date of Admission Mar 10, 2017 at 18:16 Date of Discharge 03/12/2017 Attending Physician: KATIE TORRE MD Specialist/Consultants Involve: Liat Tierney MD Specialist/Consultants Involve Primary care provider: ARMIDA Rush Discharge Summary PROCEDURES PERFORMED DURING STAY: Transthoracic echocardiogram CONCLUSIONS: 1. Study is of good technical quality. 2. Normal LV size with mild to moderate left ventricular hypertrophy and preserved LV systolic function. 3. Severe aortic stenosis. 4. Mild mitral stenosis. 5. Elevated CVP. 6. Suggestive of moderate pulmonary hypertension. 7. Severe biatrial enlargement. ADMITTING DIAGNOSES: 1. Decompensated diastolic congestive heart failure secondary to severe aortic stenosis. 2. ? abdominal pain. SECONDARY DIAGNOSES: 1. Atrial fibrillation. 2. Hypertension. 3. Chronic kidney disease. DISCHARGE DIAGNOSES: 1. Decompensated diastolic congestive heart failure secondary to severe aortic stenosis. 2. Hypokalemia. COMPLICATIONS/CHIEF COMPLAINT: CHF. HISTORY OF PRESENT ILLNESS: Ms. Hernandez is an 86-year-old female who presents to [facility]'s Emergency Department with weakness and chest pain. She is accompanied by her . Past medical history is significant for: diastolic congestive heart failure with an EF of 60%, coronary artery disease, hypertension, dyslipidemia, severe aortic stenosis, history of diverticulitis, history of MRSA, osteoarthritis, adenomatous polyp, atrial fibrillation, left index finger osteomyelitis. Patient states that she developed symptoms this morning where her legs were shaking, she had no energy, felt weak, and had diffuse body-wide pain. She felt exhausted. She subsequently developed chest pain, which she described as "light" with associated radiation up her neck and down her left arm. No diaphoresis. This pain lasted approximately 10-15 minutes. All these symptoms came on abruptly without provocation. As quickly as they came on, they abated in approximately 10 minutes. The patient still felt quite anxious and wanted to be evaluated in the Emergency Department. She is currently admitting to continued numbness and tingling in her upper and lower extremities with continued pain in her legs. She does not, nor during my entire evaluation, admit to any kind of abdominal pain, tenderness, or distention. Further denies fever, night sweats, chills, itchy/watery eyes, runny nose, sore throat, cough, nausea, vomiting, hearing changes, headache, peripheral edema. She does state that she feels as though this can all be attributed to a medication that her primary care provider has her on. However, in clarification, her states that her pushcart peddler has her on a medication, Lasix, for her congestive heart failure that was diagnosed several years ago (2014). They have regular appointments with their primary care provider who monitors labs. The patient recently saw her PCP in February and has another appointment scheduled in early March for follow-up labs. The patient's states that her PCP also has her on potassium since she is on the Lasix. According to the , the PCP is regularly monitoring the patient in order to adjust her Lasix dosage. She is on quite a large dose at 240mg divided daily dose. The patient is aware of her severe aortic stenosis and has discused with her pushcart peddler her wish to not pursue any further intervention. During my evaluation, the patient re-iterated that she does not want any further intervention regarding her severe aortic stenosis. Work-up in the Emergency department included a BNP which was 2316. An EKG revealed atrial fibrillation with an occasional PVC. Vital signs were within optimal range. CBC was within normal range. Besides a slight worsening of patient's creatinine at 1.25, the BMP was essential negative. According to the Emergency Department personnel, patient was complaining of abdominal pain so imaging was obtained. Reports are pending. Hospitalist service was consulted and patient was admitted for further medical management. HOSPITAL COURSE: Patient was admitted to the PCU. Lasix with a net negative balance was initiated. A TTE was obtained with result reported above. I/O's were monitored. Cardiology was consulted with their recommendations as follows : continue current Lasix, no changes to atrial fibrillation management, replete potassium as it was low, and could consider an aortic valve replacement. Imaging (with reports below) were obtained for reported abdominal pain. All were negative. Patient denies pain during follow-up, daily evaluation. Cardiac markers were negative. Atrial fibrillation controlled. Would recommend against beta-adebayo management as patient has severe aortic stenosis. Replenished electrolyte abnormalities. Patient improved significantly throughout brief admission and was stable at time of discharge. DISCHARGE MEDICATIONS: Please see below. ALLERGIES: Please see below. PHYSICAL EXAMINATION ON DISCHARGE: VITAL SIGNS: Please see below. GENERAL: Elderly female, appears stated age, wearing hospital gown, no acute distress HEENT: Atraumatic, normocephalic, PERRL, EOMI, oral mucosa appears pink and moist, nasal septum appears midline, nares are patent NECK: Soft, supple, trachea midline, no lymphadenopathy CARDIOVASCULAR EXAMINATION: Grade II/ systolic murmur appreciated over the second intercostal space on the right RESPIRATORY EXAMINATION: Crackles appreciated in the right lower lobe, adequate inspiratory and expiratory airway excursion ABDOMINAL EXAMINATION: Flat, soft, non-distended, non-tender, bowel sounds appreciated EXTREMITIES: Radial and posterior tibial pulses equal and symmetrical, +2 SKIN: Warm, dry, intact, without peripheral edema NEUROLOGICAL EXAMINATION: CN II-XII grossly intact PSYCHIATRIC EXAMINATION: Alert and conversant, pleasant LABORATORY DATA: Please see below. IMAGING: Portable chest x-ray IMPRESSION: Stable cardiomegaly and stable small amount of bilateral pleural fluid or thickening. Kidney, ureter, bladder x-ray IMPRESSION: No evidence of bowel obstruction. Diffuse vascular calcifications in the abdomen and pelvis. CT chest angiography IMPRESSION: No CT evidence of pulmonary embolism. Cardiomegaly. Small bilateral effusions with mild bibasilar atelectasis/infiltrate. CT abdomen and pelvis with IV contrast only There is a cyst in the right lobe of the liver. The spleen appears unremarkable. Left adrenal nodule is stable compared to prior study of 2011 most consistent with an adenoma. Pancreas is unremarkable. Small cyst is seen in each kidney without hydronephrosis. There is ectasia of the abdominal aorta without aneurysm. I see no significant adenopathy in the abdomen or pelvis. No free air is seen. There is extensive sigmoid diverticulosis with mild thickening of a segment of the sigmoid and surrounding streaky density most consistent with sigmoid diverticulitis. There is mild free fluid in the pelvis. No pelvic mass is seen. Abdominal ultrasound IMPRESSION: No gallstones, biliary dilatation, or free fluid. There does appear to be a right pleural effusion. There is a cyst in the right lobe of the liver and in the upper pole of the right kidney. PROGNOSIS: Stable, but guarded. ACTIVITY: As tolerated. DIET: 2g sodium diet. DISCHARGE PLAN: Problem: Managing health at home Goal: Improve health & wellness Instructions: Follow DC Instruction DISPOSITION: Home. DISCHARGE INSTRUCTIONS: 1. Follow a fluid restrictive diet and do not consume more than 1.5L of fluid in a 24 hour period. 2. Continue taking Lasix 80mg by mouth at 8AM, 40mg by mouth at 11AM, and 80mg by mouth 3PM, per primary care provider's instruction. 3. Appointment with Oneida Carr on 03/21/17 at 4PM. 4. Appointment with Dr. Snow on 03/29/17 at 1:15PM. ITEMS TO FOLLOWUP ON ON OUTPATIENT: 1. Decompensated congestive heart failure. 2. Severe aortic stenosis. DISCHARGE CONDITION: Stable. TIME SPENT ON DISCHARGE: Greater than 30 minutes. Vital Signs/I&Os Vital Signs Date Time Temp Pulse Resp B/P (MAP) Pulse Ox O2 Delivery O2 Flow Rate FiO2 03/12/17 09:00 99.6 76 18 123/68 96 Room Air I&O- Last 24 Hours up to 6 AM 03/13/17 05:59 Intake Total 420 ml Output Total 300 ml Balance 120 ml Laboratory Data Labs 24H Laboratory Tests 2 03/12/17 05:56: Nucleated Red Blood Cells % (auto) 0.0, Anion Gap 8, Glomerular Filtration Rate 45.6, Blood Urea Nitrogen 17, Creatinine 1.19H, Sodium Level 138, Potassium Level 3.0L, Chloride Level 101, Carbon Dioxide Level 29, Calcium Level 8.4L, Aspartate Amino Transf (AST/SGOT) 25, Alanine Aminotransferase (ALT/SGPT) 14, Alkaline Phosphatase 82, Total Bilirubin 2.0H, Total Protein 5.7L, Albumin 2.5L , Magnesium Level 2.2, Albumin/Globulin Ratio 0.78L CBC/BMP Laboratory Tests 03/12/17 05:56 Red Blood Count 4.51, Mean Corpuscular Volume 91.4, Mean Corpuscular Hemoglobin 31.0, Mean Corpuscular Hemoglobin Concent 34.0, Red Cell Distribution Width 14.1 , Calcium Level 8.4 L, Aspartate Amino Transf (AST/SGOT) 25, Alanine Aminotransferase (ALT/SGPT) 14, Alkaline Phosphatase 82, Total Bilirubin 2.0 H, Total Protein 5.7 L, Albumin 2.5 L Discharge Medications Scheduled Apixaban Base (Eliquis) 2.5 Mg Tab, 2.5 MG PO BID, (Reported) Ergocalciferol (Vitamin D) 50,000 Unit Cap, 50,000 UNIT PO Q2WK, (Reported) TAKES EVERY OTHER SUNDAY Furosemide (Lasix) 40 Mg Tab, 80 MG PO BID, (Reported) QAM & 1500 Furosemide (Lasix) 40 Mg Tab, 40 MG PO DAILY, (Reported) @ 1100 Multivitamins *[place] STOCKED* (Thera M Plus *[place] STOCKED*) 1 Tab Tab, 1 TAB PO DAILY, (Reported) Potassium Chloride (Klor-Con M20) 20 Meq Tabcr, 40 MEQ PO BID, (Reported) Allergies Coded Allergies: Bee Venom (Unverified Allergy, Severe, ANAPHYLAXIS, 09/23/14) Codeine (Verified Allergy, Unknown, UNKNOWN, 07/29/12) Morphine (Verified Adverse Reaction, Mild, LOW BP, 09/23/14) CLAUDE GURROLA DO Mar 12, 2017 10:55
--- NOTE | 2017-03-12 20:58 | ECGEPIP ---
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
[2017-03-17] MEDS ORDERED: VITAMIN D 50,000 UNITS CAPSULE (ERGOCALCIFEROL 1.25MG) PO SCH (09:00)
== END 2017-03-12 12:25 | disposition home or self-care (01) | DRG 306 ==
LOC: M ED 13:53 → M ED INP 18:16 → M PCU 20:42
PROVIDERS: ADMIT Hospitalist; ATTEND Internal Medicine Nephrology
DX: I35.0 Nonrheumatic aortic (valve) stenosis (principal); I50.33 Acute on chronic diastolic (congestive) heart failure; I13.0 Hypertensive heart and chronic kidney disease with heart failure and stage 1 through stage 4 chronic kidney disease, or unspecified chronic kidney disease; N18.9 Chronic kidney disease, unspecified; I48.2 Chronic atrial fibrillation; E87.6 Hypokalemia; Z79.899 Other long term (current) drug therapy; E78.5 Hyperlipidemia, unspecified; M19.90 Unspecified osteoarthritis, unspecified site; Z88.5 Allergy status to narcotic agent; Z91.038 Other insect allergy status

== ENCOUNTER → 2017-04-09 | Outpatient (CLI) | payer MEDICARE, OTHER ==
[~2017-04-09] MED LIST changes: +LASI40TA PO; +POTA20TA PO
[2017-04-09 15:18] LABS: CALCIUM LEVEL 8.7 MG/DL (8.8-10.2); CREATININE FOR GFR 1.27 MG/DL (0.55-1.02); GLOMERULAR FILTRATION RATE 42.3 (>32); POTASSIUM SERUM 3.9 MEQ/L (3.5-5.1)
== END ==
LOC: M WUC 11:26
PROVIDERS: ATTEND Physician Assistant Medical
DX: I50.20 Unspecified systolic (congestive) heart failure (principal)

== ENCOUNTER 2017-04-24 11:26 | Emergency (ER) | payer MEDICARE, OTHER ==
[2017-04-24] MEDS: IPRATROPIUM 0.5MG/ALBUTEROL 2.5MG INH SOL UD 3ML (DUONEB)(J7620) NEB (15:26)
[2017-04-24] MEDS: ALBUTEROL SULFATE 2.5 MG/0.5 ML INH NEB SOLN NEB (15:31)
[2017-04-24] MEDS: ACETAMINOPHEN TAB 650MG DOSE (2X325MG) PO (16:00)
[2017-04-24] MEDS: FUROSEMIDE 100 MG/10 ML VIAL (J1940) IV (16:00)
[2017-04-24 16:25] LABS: BASO # 0.1 10^3/uL (0.0-0.2); BASO % 0.9 % (0.0-1.0); EOS # 0.2 10^3/uL (0.0-0.50); EOS % 2.8 % (0.0-3.0); HEMATOCRIT 45.9 % (36.0-47.0); HEMOGLOBIN 15.2 g/dl (12.0-16.0); IMMATURE GRANULOCYTE % 0.2 % (0-0); LYMPH # 2.5 10^3/uL (1.5-4.5); LYMPH % 46.5 % (24.0-44.0); MEAN CORPUSCULAR HEMOGLOBIN 30.6 pg (27.0-33.0); MEAN CORPUSCULAR HGB CONC 33.1 g/dl (32.0-36.5); MEAN CORPUSCULAR VOLUME 92.5 fl (80.0-96.0); MONO # 0.6 10^3/uL (0.0-0.8); MONO % 11.3 % (0.0-5.0); NEUTROPHILS # 2.1 10^3/uL (1.8-7.7); NEUTROPHILS % 38.3 % (36.0-66.0); PLATELET COUNT, AUTOMATED 124 10^3/uL (150-450); RED BLOOD COUNT 4.96 10^6/uL (4.00-5.40); RED CELL DISTRIBUTION WIDTH 14.5 % (11.5-14.5); WHITE BLOOD COUNT 5.4 10^3/uL (4.0-10.0)
[2017-04-24 16:49] LABS: ANION GAP 9 MEQ/L (8-16); BLOOD UREA NITROGEN 14 MG/DL (7-18); CALCIUM LEVEL 8.8 MG/DL (8.8-10.2); CARBON DIOXIDE LEVEL 30 MEQ/L (21-32); CHLORIDE LEVEL 102 MEQ/L (98-107); CK-MB VALUE MASS 3.6 NG/ML (0.0-3.6); CPK CREATINE PHOSPHOKINASE 322 U/L (26-192); GLOMERULAR FILTRATION RATE 45.1 (>32); GLUCOSE, FASTING 91 MG/DL (83-110); MB/CK RELATIVE INDEX 1.11 (< OR =4); POTASSIUM SERUM 4.1 MEQ/L (3.5-5.1); SODIUM LEVEL 141 MEQ/L (136-145)
[2017-04-24 16:50] LABS: ALBUMIN 3.4 GM/DL (3.2-5.2); ALBUMIN/GLOBULIN RATIO 0.89 (1.00-1.93); ALKALINE PHOSPHATASE 99 U/L (45-117); ALT/SGPT 23 U/L (12-78); AST/SGOT 50 U/L (7-37); BILIRUBIN,DIRECT 0.6 MG/DL (0.0-0.2); BILIRUBIN,TOTAL 1.7 MG/DL (0.2-1.0); NT-PRO BNP 2395 PG/ML (<450); TOTAL PROTEIN 7.2 GM/DL (6.4-8.2)
== END 2017-04-24 20:22 | disposition home or self-care (01) ==
LOC: M ED 11:26
DX: I50.33 Acute on chronic diastolic (congestive) heart failure (principal); I48.2 Chronic atrial fibrillation; I10 Essential (primary) hypertension; J45.909 Unspecified asthma, uncomplicated; E78.4 Other hyperlipidemia; M81.0 Age-related osteoporosis without current pathological fracture; Z86.14 Personal history of Methicillin resistant Staphylococcus aureus infection; Z79.02 Long term (current) use of antithrombotics/antiplatelets
CPT/HCPCS: 96374

== ENCOUNTER 2017-04-26 08:43 | Inpatient (IN) | payer MEDICARE ==
[2017-04-26] MEDS ORDERED: APIXABAN 2.5 MG TAB (ELIQUIS) PO (09:00)
[2017-04-26] MEDS ORDERED: AMOXICILLIN 875 MG TAB PO (09:00)
[2017-04-26 09:38] LABS: BASO % 0.6 % (0.0-1.0); EOS # 0.1 10^3/uL (0.0-0.50); EOS % 2.4 % (0.0-3.0); HEMATOCRIT 44.6 % (36.0-47.0); HEMOGLOBIN 14.8 g/dl (12.0-16.0); IMMATURE GRANULOCYTE % 0.2 % (0-0); LYMPH # 1.7 10^3/uL (1.5-4.5); LYMPH % 33.5 % (24.0-44.0); MEAN CORPUSCULAR HEMOGLOBIN 30.8 pg (27.0-33.0); MEAN CORPUSCULAR HGB CONC 33.2 g/dl (32.0-36.5); MEAN CORPUSCULAR VOLUME 92.9 fl (80.0-96.0); MONO # 0.5 10^3/uL (0.0-0.8); MONO % 9.9 % (0.0-5.0); NEUTROPHILS # 2.7 10^3/uL (1.8-7.7); NEUTROPHILS % 53.4 % (36.0-66.0); PLATELET COUNT, AUTOMATED 125 10^3/uL (150-450); RED CELL DISTRIBUTION WIDTH 14.6 % (11.5-14.5)
[2017-04-26 09:46] LABS: INR 1.38; PROTHROMBIN TIME 17.3 SECONDS (12.4-14.5)
[2017-04-26 10:05] LABS: ALBUMIN 3.2 GM/DL (3.2-5.2); ALBUMIN/GLOBULIN RATIO 0.94 (1.00-1.93); ALKALINE PHOSPHATASE 96 U/L (45-117); ALT/SGPT 22 U/L (12-78); ANION GAP 8 MEQ/L (8-16); AST/SGOT 45 U/L (7-37); BILIRUBIN,DIRECT 0.6 MG/DL (0.0-0.2); BILIRUBIN,TOTAL 1.3 MG/DL (0.2-1.0); BLOOD UREA NITROGEN 19 MG/DL (7-18); CALCIUM LEVEL 8.9 MG/DL (8.8-10.2); CARBON DIOXIDE LEVEL 30 MEQ/L (21-32); CHLORIDE LEVEL 104 MEQ/L (98-107); CPK CREATINE PHOSPHOKINASE 281 U/L (26-192); CREATININE FOR GFR 1.43 MG/DL (0.55-1.02); GLOMERULAR FILTRATION RATE 36.9 (>32); GLUCOSE, FASTING 153 MG/DL (83-110); SODIUM LEVEL 142 MEQ/L (136-145); TOTAL PROTEIN 6.6 GM/DL (6.4-8.2); TROPONIN I 0.21 NG/ML (< 0.10)
[2017-04-26 10:11] LABS: CK-MB VALUE MASS 3.3 NG/ML (0.0-3.6); MB/CK RELATIVE INDEX 1.17 (< OR =4); NT-PRO BNP 2862 PG/ML (<450)
[2017-04-26] MEDS: FUROSEMIDE 40 MG/4 ML VIAL (J1940) IV (10:53)
[2017-04-26] MEDS: ACETAMINOPHEN TAB 650MG DOSE (2X325MG) PO ×2 (11:31→18:19)
[2017-04-26] MEDS ORDERED: ONDANSETRON 4MG/2ML VIAL (J2405) IV (12:45)
[2017-04-26 14:39] LABS: CPK CREATINE PHOSPHOKINASE 272 U/L (26-192); TROPONIN I 0.26 NG/ML (< 0.10)
[2017-04-26 14:40] LABS: CK-MB VALUE MASS 3.5 NG/ML (0.0-3.6); MB/CK RELATIVE INDEX 1.28 (< OR =4)
[2017-04-26] MEDS: FUROSEMIDE 100 MG/10 ML VIAL (J1940) IV ×2 (18:20→23:00)
[2017-04-26] MEDS: ALBUTEROL SULFATE 2.5 MG/0.5 ML INH NEB SOLN INH ×2 (18:39→23:24)
[2017-04-26 20:28] LABS: CPK CREATINE PHOSPHOKINASE 252 U/L (26-192); TROPONIN I 0.23 NG/ML (< 0.10)
[2017-04-26 20:29] LABS: CK-MB VALUE MASS 3.2 NG/ML (0.0-3.6); MB/CK RELATIVE INDEX 1.26 (< OR =4)
[2017-04-26] MEDS: APIXABAN 2.5 MG TAB (ELIQUIS) PO (21:57)
[2017-04-26] MEDS: AMOXICILLIN 875 MG TAB PO (21:57)
[2017-04-27 05:00] LABS: HEMATOCRIT 43.6 % (36.0-47.0); HEMOGLOBIN 14.5 g/dl (12.0-16.0); MEAN CORPUSCULAR HEMOGLOBIN 30.9 pg (27.0-33.0); MEAN CORPUSCULAR HGB CONC 33.3 g/dl (32.0-36.5); MEAN CORPUSCULAR VOLUME 92.8 fl (80.0-96.0); PLATELET COUNT, AUTOMATED 122 10^3/uL (150-450); RED CELL DISTRIBUTION WIDTH 14.4 % (11.5-14.5); WHITE BLOOD COUNT 6.4 10^3/uL (4.0-10.0)
[2017-04-27] MEDS: FUROSEMIDE 100 MG/10 ML VIAL (J1940) IV ×4 (05:00→22:45)
[2017-04-27 05:23] LABS: ANION GAP 6 MEQ/L (8-16); BLOOD UREA NITROGEN 18 MG/DL (7-18); CALCIUM LEVEL 8.2 MG/DL (8.8-10.2); CARBON DIOXIDE LEVEL 34 MEQ/L (21-32); CHLORIDE LEVEL 101 MEQ/L (98-107); CPK CREATINE PHOSPHOKINASE 206 U/L (26-192); CREATININE FOR GFR 1.22 MG/DL (0.55-1.02); GLOMERULAR FILTRATION RATE 44.3 (>32); GLUCOSE, FASTING 104 MG/DL (83-110); MAGNESIUM LEVEL 2.2 MG/DL (1.8-2.4); POTASSIUM SERUM 3.1 MEQ/L (3.5-5.1); SODIUM LEVEL 141 MEQ/L (136-145)
[2017-04-27 05:24] LABS: CK-MB VALUE MASS 2.5 NG/ML (0.0-3.6); MB/CK RELATIVE INDEX 1.21 (< OR =4)
[2017-04-27] MEDS: AMOXICILLIN 875 MG TAB PO ×2 (08:12→20:59)
[2017-04-27] MEDS: APIXABAN 2.5 MG TAB (ELIQUIS) PO ×2 (08:13→20:59)
[2017-04-27] MEDS: POTASSIUM CHLORIDE 10 MEQ SR TABLET PO (10:43)
[2017-04-27] MEDS: ACETAMINOPHEN TAB 650MG DOSE (2X325MG) PO ×2 (10:43→20:59)
[2017-04-27] MEDS: ALBUTEROL SULFATE 2.5 MG/0.5 ML INH NEB SOLN INH (21:23)
[2017-04-28] MEDS: ACETAMINOPHEN TAB 650MG DOSE (2X325MG) PO ×4 (01:23→20:36)
[2017-04-28 05:37] LABS: HEMATOCRIT 42.4 % (36.0-47.0); HEMOGLOBIN 14.2 g/dl (12.0-16.0); MEAN CORPUSCULAR HEMOGLOBIN 30.3 pg (27.0-33.0); MEAN CORPUSCULAR HGB CONC 33.5 g/dl (32.0-36.5); MEAN CORPUSCULAR VOLUME 90.6 fl (80.0-96.0); PLATELET COUNT, AUTOMATED 125 10^3/uL (150-450); RED BLOOD COUNT 4.68 10^6/uL (4.00-5.40); RED CELL DISTRIBUTION WIDTH 14.2 % (11.5-14.5); WHITE BLOOD COUNT 6.6 10^3/uL (4.0-10.0)
[2017-04-28] MEDS: FUROSEMIDE 100 MG/10 ML VIAL (J1940) IV ×3 (05:40→17:00)
[2017-04-28 05:56] LABS: ANION GAP 9 MEQ/L (8-16); BLOOD UREA NITROGEN 19 MG/DL (7-18); CARBON DIOXIDE LEVEL 29 MEQ/L (21-32); CHLORIDE LEVEL 100 MEQ/L (98-107); CREATININE FOR GFR 1.16 MG/DL (0.55-1.02); GLOMERULAR FILTRATION RATE 46.9 (>32); GLUCOSE, FASTING 82 MG/DL (83-110); MAGNESIUM LEVEL 2.1 MG/DL (1.8-2.4); SODIUM LEVEL 138 MEQ/L (136-145)
[2017-04-28 06:01] LABS: POTASSIUM SERUM 2.9 MEQ/L (3.5-5.1)
[2017-04-28] MEDS: POTASSIUM CHLORIDE 10 MEQ SR TABLET PO ×2 (06:32→09:26)
[2017-04-28] MEDS: APIXABAN 2.5 MG TAB (ELIQUIS) PO ×2 (09:26→20:35)
[2017-04-28] MEDS: AMOXICILLIN 875 MG TAB PO ×2 (09:26→20:35)
[2017-04-28] MEDS: ALBUTEROL SULFATE 2.5 MG/0.5 ML INH NEB SOLN INH (11:13)
[2017-04-28] MEDS: NITROGLYCERIN 2% OINT 1 GM *U/D* PKT TOP ×2 (12:00→17:57)
[2017-04-28 12:03] LABS: POTASSIUM SERUM 3.6 MEQ/L (3.5-5.1)
[2017-04-29] MEDS: ALBUTEROL SULFATE 2.5 MG/0.5 ML INH NEB SOLN INH ×2 (00:01→23:44)
[2017-04-29] MEDS: FUROSEMIDE 100 MG/10 ML VIAL (J1940) IV ×2 (00:24→06:14)
[2017-04-29] MEDS: NITROGLYCERIN 2% OINT 1 GM *U/D* PKT TOP ×2 (00:25→06:00)
[2017-04-29] MEDS: ACETAMINOPHEN TAB 650MG DOSE (2X325MG) PO ×3 (01:01→18:07)
[2017-04-29 05:36] LABS: HEMOGLOBIN 14.1 g/dl (12.0-16.0); MEAN CORPUSCULAR HEMOGLOBIN 30.3 pg (27.0-33.0); MEAN CORPUSCULAR HGB CONC 33.6 g/dl (32.0-36.5); MEAN CORPUSCULAR VOLUME 90.3 fl (80.0-96.0); PLATELET COUNT, AUTOMATED 155 10^3/uL (150-450); RED BLOOD COUNT 4.65 10^6/uL (4.00-5.40); RED CELL DISTRIBUTION WIDTH 14.2 % (11.5-14.5); WHITE BLOOD COUNT 5.9 10^3/uL (4.0-10.0)
[2017-04-29 05:47] LABS: ANION GAP 9 MEQ/L (8-16); BLOOD UREA NITROGEN 18 MG/DL (7-18); CARBON DIOXIDE LEVEL 27 MEQ/L (21-32); CHLORIDE LEVEL 102 MEQ/L (98-107); CREATININE FOR GFR 1.16 MG/DL (0.55-1.02); GLOMERULAR FILTRATION RATE 46.9 (>32); GLUCOSE, FASTING 99 MG/DL (83-110); MAGNESIUM LEVEL 2.2 MG/DL (1.8-2.4); POTASSIUM SERUM 3.3 MEQ/L (3.5-5.1); SODIUM LEVEL 138 MEQ/L (136-145)
[2017-04-29] MEDS ORDERED: CHLORASEPTIC SPRAY MT (08:00)
[2017-04-29] MEDS: AMOXICILLIN 875 MG TAB PO ×2 (09:27→22:13)
[2017-04-29] MEDS: POTASSIUM CHLORIDE 10 MEQ SR TABLET PO (09:27)
[2017-04-29] MEDS: APIXABAN 2.5 MG TAB (ELIQUIS) PO ×2 (09:27→22:14)
[2017-04-29] MEDS: TORSEMIDE 10 MG TABLET PO ×2 (09:54→17:22)
[2017-04-29] MEDS: BENZONATATE 100 MG CAP PO ×3 (09:54→22:14)
[2017-04-29] MEDS: NYSTATIN 500,000 U/5 ML SUSP UDC SS ×3 (13:00→23:21)
[2017-04-30 05:07] LABS: HEMATOCRIT 43.1 % (36.0-47.0); HEMOGLOBIN 14.6 g/dl (12.0-16.0); MEAN CORPUSCULAR HEMOGLOBIN 30.7 pg (27.0-33.0); MEAN CORPUSCULAR HGB CONC 33.9 g/dl (32.0-36.5); MEAN CORPUSCULAR VOLUME 90.7 fl (80.0-96.0); PLATELET COUNT, AUTOMATED 165 10^3/uL (150-450); RED BLOOD COUNT 4.75 10^6/uL (4.00-5.40); RED CELL DISTRIBUTION WIDTH 14.1 % (11.5-14.5); WHITE BLOOD COUNT 5.3 10^3/uL (4.0-10.0)
[2017-04-30 05:22] LABS: ANION GAP 7 MEQ/L (8-16); BLOOD UREA NITROGEN 18 MG/DL (7-18); CARBON DIOXIDE LEVEL 30 MEQ/L (21-32); CHLORIDE LEVEL 100 MEQ/L (98-107); CREATININE FOR GFR 1.13 MG/DL (0.55-1.02); GLOMERULAR FILTRATION RATE 48.4 (>32); GLUCOSE, FASTING 100 MG/DL (83-110); MAGNESIUM LEVEL 2.2 MG/DL (1.8-2.4); POTASSIUM SERUM 3.2 MEQ/L (3.5-5.1); SODIUM LEVEL 137 MEQ/L (136-145)
[2017-04-30] MEDS: NYSTATIN 500,000 U/5 ML SUSP UDC SS ×3 (06:13→17:28)
[2017-04-30] MEDS: POTASSIUM CHLORIDE 10 MEQ SR TABLET PO (08:41)
[2017-04-30] MEDS: AMOXICILLIN 875 MG TAB PO (08:42)
[2017-04-30] MEDS: TORSEMIDE 10 MG TABLET PO ×2 (08:43→17:27)
[2017-04-30] MEDS: APIXABAN 2.5 MG TAB (ELIQUIS) PO (08:43)
[2017-04-30] MEDS: BENZONATATE 100 MG CAP PO ×2 (08:45→17:28)
[2017-04-30] MEDS: ACETAMINOPHEN TAB 650MG DOSE (2X325MG) PO (17:29)
== END 2017-04-30 18:33 | disposition home or self-care (01) | DRG 291 ==
LOC: M ED 08:43 → M ED INP 12:45 → M PCU 16:49
DX: I13.0 Hypertensive heart and chronic kidney disease with heart failure and stage 1 through stage 4 chronic kidney disease, or unspecified chronic kidney disease (principal); I50.33 Acute on chronic diastolic (congestive) heart failure; N18.3 Chronic kidney disease, stage 3 (moderate); I48.91 Unspecified atrial fibrillation; E78.5 Hyperlipidemia, unspecified; Z66 Do not resuscitate; M19.90 Unspecified osteoarthritis, unspecified site; I25.10 Atherosclerotic heart disease of native coronary artery without angina pectoris; I35.0 Nonrheumatic aortic (valve) stenosis; R05 Cough; K57.30 Diverticulosis of large intestine without perforation or abscess without bleeding; F03.90 Unspecified dementia, unspecified severity, without behavioral disturbance, psychotic disturbance, mood disturbance, and anxiety; R07.81 Pleurodynia; M79.1 Myalgia; Z79.899 Other long term (current) drug therapy; E87.6 Hypokalemia

== ENCOUNTER 2017-05-03 12:27 | Inpatient (IN) | payer MEDICARE ==
[2017-05-03 14:36] LABS: BASO # 0.1 10^3/uL (0.0-0.2); BASO % 0.9 % (0.0-1.0); EOS # 0.2 10^3/uL (0.0-0.50); EOS % 3.9 % (0.0-3.0); HEMATOCRIT 45.5 % (36.0-47.0); HEMOGLOBIN 14.9 g/dl (12.0-16.0); IMMATURE GRANULOCYTE % 0.4 % (0-0); LYMPH # 1.8 10^3/uL (1.5-4.5); LYMPH % 32.2 % (24.0-44.0); MEAN CORPUSCULAR HEMOGLOBIN 30.5 pg (27.0-33.0); MEAN CORPUSCULAR HGB CONC 32.7 g/dl (32.0-36.5); MONO # 0.7 10^3/uL (0.0-0.8); MONO % 12.2 % (0.0-5.0); NEUTROPHILS # 2.8 10^3/uL (1.8-7.7); NEUTROPHILS % 50.4 % (36.0-66.0); PLATELET COUNT, AUTOMATED 197 10^3/uL (150-450); RED BLOOD COUNT 4.89 10^6/uL (4.00-5.40); RED CELL DISTRIBUTION WIDTH 14.6 % (11.5-14.5); WHITE BLOOD COUNT 5.6 10^3/uL (4.0-10.0)
[2017-05-03 15:09] LABS: ANION GAP 6 MEQ/L (8-16); BLOOD UREA NITROGEN 23 MG/DL (7-18); CALCIUM LEVEL 9.2 MG/DL (8.8-10.2); CARBON DIOXIDE LEVEL 28 MEQ/L (21-32); CHLORIDE LEVEL 106 MEQ/L (98-107); CREATININE FOR GFR 1.33 MG/DL (0.55-1.02); GLOMERULAR FILTRATION RATE 40.1 (>32); GLUCOSE, FASTING 101 MG/DL (83-110); SODIUM LEVEL 140 MEQ/L (136-145)
[2017-05-03 15:11] LABS: POTASSIUM SERUM 5.2 MEQ/L (3.5-5.1)
[2017-05-03 15:18] LABS: ALBUMIN 3.2 GM/DL (3.2-5.2); ALBUMIN/GLOBULIN RATIO 0.82 (1.00-1.93); ALKALINE PHOSPHATASE 100 U/L (45-117); ALT/SGPT 23 U/L (12-78); AST/SGOT 35 U/L (7-37); BILIRUBIN,DIRECT 0.5 MG/DL (0.0-0.2); BILIRUBIN,TOTAL 1.4 MG/DL (0.2-1.0); NT-PRO BNP 1648 PG/ML (<450); THYROXINE (T4) 7.8 UG/DL (4.5-12.0); TOTAL PROTEIN 7.1 GM/DL (6.4-8.2)
[2017-05-03] MEDS: FUROSEMIDE 40 MG/4 ML VIAL (J1940) IV (16:28)
[2017-05-03 18:09] LABS: CK-MB VALUE MASS 3.4 NG/ML (0.0-3.6); CPK CREATINE PHOSPHOKINASE 173 U/L (26-192); MB/CK RELATIVE INDEX 1.96 (< OR =4)
[2017-05-03] MEDS: **NOTE PATIENT COMMENT** MISC XX (21:00)
[2017-05-03 21:05] LABS: CK-MB VALUE MASS 3.3 NG/ML (0.0-3.6); CPK CREATINE PHOSPHOKINASE 170 U/L (26-192); MB/CK RELATIVE INDEX 1.94 (< OR =4)
[2017-05-03] MEDS: IPRATROPIUM 0.5MG/ALBUTEROL 2.5MG INH SOL UD 3ML (DUONEB)(J7620) NEB (21:29)
[2017-05-03] MEDS: SENOKOT S TAB PO (22:01)
[2017-05-03] MEDS: APIXABAN 2.5 MG TAB (ELIQUIS) PO (22:01)
[2017-05-03] MEDS: guaiFENesin 200 MG TAB PO (22:02)
[2017-05-04] MEDS ORDERED: FUROSEMIDE 40 MG/4 ML VIAL (J1940) IV
[2017-05-04] MEDS: FUROSEMIDE 40 MG/4 ML VIAL (J1940) IV ×4 (00:04→17:37)
[2017-05-04] MEDS: ACETAMINOPHEN 325 MG TAB PO ×2 (00:53→13:16)
[2017-05-04 02:53] LABS: CK-MB VALUE MASS 2.5 NG/ML (0.0-3.6); CPK CREATINE PHOSPHOKINASE 153 U/L (26-192); MB/CK RELATIVE INDEX 1.63 (< OR =4); TROPONIN I 0.11 NG/ML (< 0.10)
[2017-05-04 07:12] LABS: BASO % 0.6 % (0.0-1.0); EOS # 0.4 10^3/uL (0.0-0.50); EOS % 8.3 % (0.0-3.0); HEMATOCRIT 41.6 % (36.0-47.0); HEMOGLOBIN 13.9 g/dl (12.0-16.0); IMMATURE GRANULOCYTE % 0.2 % (0-0); LYMPH # 2.2 10^3/uL (1.5-4.5); LYMPH % 40.5 % (24.0-44.0); MEAN CORPUSCULAR HEMOGLOBIN 30.5 pg (27.0-33.0); MEAN CORPUSCULAR HGB CONC 33.4 g/dl (32.0-36.5); MEAN CORPUSCULAR VOLUME 91.2 fl (80.0-96.0); MONO # 0.5 10^3/uL (0.0-0.8); MONO % 9.9 % (0.0-5.0); NEUTROPHILS # 2.2 10^3/uL (1.8-7.7); NEUTROPHILS % 40.5 % (36.0-66.0); PLATELET COUNT, AUTOMATED 178 10^3/uL (150-450); RED BLOOD COUNT 4.56 10^6/uL (4.00-5.40); RED CELL DISTRIBUTION WIDTH 14.3 % (11.5-14.5); WHITE BLOOD COUNT 5.3 10^3/uL (4.0-10.0)
[2017-05-04 07:34] LABS: ALBUMIN 2.8 GM/DL (3.2-5.2); ALBUMIN/GLOBULIN RATIO 0.85 (1.00-1.93); ALKALINE PHOSPHATASE 86 U/L (45-117); ALT/SGPT 20 U/L (12-78); ANION GAP 7 MEQ/L (8-16); AST/SGOT 32 U/L (7-37); BILIRUBIN,DIRECT 0.5 MG/DL (0.0-0.2); BILIRUBIN,TOTAL 1.5 MG/DL (0.2-1.0); BLOOD UREA NITROGEN 19 MG/DL (7-18); CALCIUM LEVEL 8.6 MG/DL (8.8-10.2); CARBON DIOXIDE LEVEL 28 MEQ/L (21-32); CHLORIDE LEVEL 105 MEQ/L (98-107); CREATININE FOR GFR 1.25 MG/DL (0.55-1.02); GLOMERULAR FILTRATION RATE 43.1 (>32); GLUCOSE, FASTING 100 MG/DL (83-110); POTASSIUM SERUM 3.6 MEQ/L (3.5-5.1); SODIUM LEVEL 140 MEQ/L (136-145); TOTAL PROTEIN 6.1 GM/DL (6.4-8.2)
[2017-05-04] MEDS: MULTIVITAMINS/MINERALS THERAP 1 TAB PO (08:29)
[2017-05-04] MEDS: guaiFENesin ER 600 MG TAB PO ×2 (08:29→22:04)
[2017-05-04] MEDS: POTASSIUM CHLORIDE 10 MEQ SR TABLET PO (08:29)
[2017-05-04] MEDS: LORATADINE 10 MG TAB PO (08:29)
[2017-05-04] MEDS: SENOKOT S TAB PO ×2 (08:29→22:03)
[2017-05-04] MEDS: APIXABAN 2.5 MG TAB (ELIQUIS) PO ×2 (08:29→22:03)
[2017-05-04] MEDS: LIDOCAINE 5% (LIDODERM) PATCH TD (08:30)
[2017-05-04] MEDS: IPRATROPIUM 0.5MG/ALBUTEROL 2.5MG INH SOL UD 3ML (DUONEB)(J7620) NEB ×3 (08:36→20:17)
[2017-05-04] MEDS: **NOTE PATIENT COMMENT** MISC XX (21:00)
[2017-05-05] MEDS: IPRATROPIUM 0.5MG/ALBUTEROL 2.5MG INH SOL UD 3ML (DUONEB)(J7620) NEB ×4 (02:00→19:39)
[2017-05-05 03:52] LABS: BASO % 0.5 % (0.0-1.0); EOS # 0.3 10^3/uL (0.0-0.50); EOS % 5.8 % (0.0-3.0); HEMATOCRIT 43.9 % (36.0-47.0); HEMOGLOBIN 14.5 g/dl (12.0-16.0); IMMATURE GRANULOCYTE % 0.2 % (0-0); LYMPH # 1.4 10^3/uL (1.5-4.5); LYMPH % 24.6 % (24.0-44.0); MEAN CORPUSCULAR HEMOGLOBIN 30.4 pg (27.0-33.0); MONO # 0.4 10^3/uL (0.0-0.8); MONO % 7.7 % (0.0-5.0); NEUTROPHILS # 3.4 10^3/uL (1.8-7.7); NEUTROPHILS % 61.2 % (36.0-66.0); PLATELET COUNT, AUTOMATED 181 10^3/uL (150-450); RED BLOOD COUNT 4.77 10^6/uL (4.00-5.40); RED CELL DISTRIBUTION WIDTH 14.2 % (11.5-14.5); WHITE BLOOD COUNT 5.5 10^3/uL (4.0-10.0)
[2017-05-05 04:11] LABS: ALBUMIN 2.9 GM/DL (3.2-5.2); ALBUMIN/GLOBULIN RATIO 0.81 (1.00-1.93); ALKALINE PHOSPHATASE 91 U/L (45-117); ALT/SGPT 21 U/L (12-78); ANION GAP 6 MEQ/L (8-16); AST/SGOT 32 U/L (7-37); BILIRUBIN,DIRECT 0.5 MG/DL (0.0-0.2); BILIRUBIN,TOTAL 1.4 MG/DL (0.2-1.0); BLOOD UREA NITROGEN 20 MG/DL (7-18); CALCIUM LEVEL 8.7 MG/DL (8.8-10.2); CARBON DIOXIDE LEVEL 27 MEQ/L (21-32); CHLORIDE LEVEL 103 MEQ/L (98-107); CREATININE FOR GFR 1.23 MG/DL (0.55-1.02); GLOMERULAR FILTRATION RATE 43.9 (>32); GLUCOSE, FASTING 97 MG/DL (83-110); SODIUM LEVEL 136 MEQ/L (136-145); TOTAL PROTEIN 6.5 GM/DL (6.4-8.2)
[2017-05-05] MEDS: ONDANSETRON 4MG/2ML VIAL (J2405) IV ×2 (05:59→16:42)
[2017-05-05] MEDS: FUROSEMIDE 40 MG/4 ML VIAL (J1940) IV ×3 (06:42→12:45)
[2017-05-05] MEDS: ACETAMINOPHEN 325 MG TAB PO (06:48)
[2017-05-05] MEDS: APIXABAN 2.5 MG TAB (ELIQUIS) PO ×2 (08:49→21:00)
[2017-05-05] MEDS: guaiFENesin ER 600 MG TAB PO ×2 (08:49→21:00)
[2017-05-05] MEDS: LORATADINE 10 MG TAB PO (08:49)
[2017-05-05] MEDS: MULTIVITAMINS/MINERALS THERAP 1 TAB PO (08:49)
[2017-05-05] MEDS: SENOKOT S TAB PO ×2 (08:49→21:00)
[2017-05-05 10:36] LABS: ABG BASE EXCESS 1.4 (-2.0-2.0); ABG HCO3 24.3 MEQ/L (22.0-26.0); ABG O2 SATURATION 98.7 % (95.0-99.0); ABG PARTIAL PRESSURE CO2 33.7 mmHg (35.0-45.0); ABG PARTIAL PRESSURE O2 119.9 mmHg (75.0-100.0); ABG STANDARD HCO3 25.8 MEQ/L (22.0-26.0); ABG TOTAL CO2 25.3 MEQ/L (23.0-31.0); ABG pH (ARTERIAL) 7.476 UNITS (7.350-7.450)
[2017-05-05 10:47] LABS: CK-MB VALUE MASS 2.3 NG/ML (0.0-3.6); CPK CREATINE PHOSPHOKINASE 114 U/L (26-192); MB/CK RELATIVE INDEX 2.01 (< OR =4); TROPONIN I 0.08 NG/ML (< 0.10)
[2017-05-05] MEDS: LIDOCAINE 5% (LIDODERM) PATCH TD (14:24)
[2017-05-05 16:35] LABS: AMMONIA 89 uMOL/L (<32)
[2017-05-05] MEDS: CEFEPIME HCL 1 GM in APPROPRIATE DILUENT 1 EA IV (18:43)
[2017-05-05] MEDS: ACETAMINOPHEN TAB 650MG DOSE (2X325MG) PO (18:43)
[2017-05-05] MEDS: ALPRAZolam 0.25 MG TAB PO (21:00)
[2017-05-05] MEDS: **NOTE PATIENT COMMENT** MISC XX (21:00)
[2017-05-06] MEDS: FUROSEMIDE 40 MG/4 ML VIAL (J1940) IV ×2 (00:37→11:50)
[2017-05-06] MEDS: ONDANSETRON 4MG/2ML VIAL (J2405) IV (00:45)
[2017-05-06] MEDS: ACETAMINOPHEN TAB 650MG DOSE (2X325MG) PO (01:31)
[2017-05-06] MEDS: IPRATROPIUM 0.5MG/ALBUTEROL 2.5MG INH SOL UD 3ML (DUONEB)(J7620) NEB ×4 (02:00→19:24)
[2017-05-06] MEDS: CEFEPIME HCL 1 GM in APPROPRIATE DILUENT 1 EA IV ×2 (05:20→18:48)
[2017-05-06 05:32] LABS: HEMATOCRIT 40.6 % (36.0-47.0); HEMOGLOBIN 13.6 g/dl (12.0-16.0); MEAN CORPUSCULAR HEMOGLOBIN 30.6 pg (27.0-33.0); MEAN CORPUSCULAR HGB CONC 33.5 g/dl (32.0-36.5); MEAN CORPUSCULAR VOLUME 91.4 fl (80.0-96.0); PLATELET COUNT, AUTOMATED 148 10^3/uL (150-450); RED BLOOD COUNT 4.44 10^6/uL (4.00-5.40); RED CELL DISTRIBUTION WIDTH 14.2 % (11.5-14.5); WHITE BLOOD COUNT 6.2 10^3/uL (4.0-10.0)
[2017-05-06 05:40] LABS: POSITIVE MORPH POS FLAG
[2017-05-06 05:41] LABS: ADD MANUAL DIFFER YES; DIFF SLIDE NUMBER 48
[2017-05-06 05:52] LABS: ALBUMIN 2.4 GM/DL (3.2-5.2); ALBUMIN/GLOBULIN RATIO 0.73 (1.00-1.93); ALKALINE PHOSPHATASE 70 U/L (45-117); ALT/SGPT 20 U/L (12-78); ANION GAP 6 MEQ/L (8-16); AST/SGOT 33 U/L (7-37); BILIRUBIN,DIRECT 0.5 MG/DL (0.0-0.2); BILIRUBIN,TOTAL 1.4 MG/DL (0.2-1.0); BLOOD UREA NITROGEN 31 MG/DL (7-18); CARBON DIOXIDE LEVEL 27 MEQ/L (21-32); CHLORIDE LEVEL 101 MEQ/L (98-107); CREATININE FOR GFR 1.47 MG/DL (0.55-1.02); GLOMERULAR FILTRATION RATE 35.7 (>32); GLUCOSE, FASTING 112 MG/DL (83-110); POTASSIUM SERUM 4.4 MEQ/L (3.5-5.1); SODIUM LEVEL 134 MEQ/L (136-145); TOTAL PROTEIN 5.7 GM/DL (6.4-8.2)
[2017-05-06 06:31] LABS: ATYPICAL LYMPH 4 % (0-5); BANDS 4 % (< 11); LYMPHOCYTES 8 % (16-52); MONOCYTES 3 % (0-8); NEUTROPHILS 81 % (35-75)
[2017-05-06 06:32] LABS: PLATELET ESTIMATE NORMAL (NORMAL)
[2017-05-06] MEDS: SENOKOT S TAB PO ×2 (08:29→20:22)
[2017-05-06] MEDS: MULTIVITAMINS/MINERALS THERAP 1 TAB PO (08:30)
[2017-05-06] MEDS: APIXABAN 2.5 MG TAB (ELIQUIS) PO ×2 (08:30→20:22)
[2017-05-06] MEDS: guaiFENesin ER 600 MG TAB PO ×2 (08:30→20:22)
[2017-05-06] MEDS: ALPRAZolam 0.25 MG TAB PO ×2 (08:30→20:22)
[2017-05-06] MEDS: LORATADINE 10 MG TAB PO (08:30)
[2017-05-06 15:28] LABS: KETONE, URINE AUTO RFX NEGATIVE (NEGATIVE); LEUKOCYTE ESTERASE UR AUTO RFX NEGATIVE (NEGATIVE); MUCUS, URINE RFX SMALL (NEGATIVE); NITRITE, URINE AUTO RFX NEGATIVE (NEGATIVE); RBC, URINE AUTO RFX 5 /HPF (0-3); SPECIFIC GRAVITY UR AUTO RFX 1.011 (1.002-1.035); SQUAM EPITHELIAL CELL UR AURFX 0 /HPF (0-6); WBC, URINE AUTO RFX 1 /HPF (0-3)
[2017-05-06] MEDS: **NOTE PATIENT COMMENT** MISC XX (20:23)
[2017-05-07] MEDS: FUROSEMIDE 40 MG/4 ML VIAL (J1940) IV
[2017-05-07] MEDS: IPRATROPIUM 0.5MG/ALBUTEROL 2.5MG INH SOL UD 3ML (DUONEB)(J7620) NEB ×4 (01:28→21:06)
[2017-05-07] MEDS: CEFEPIME HCL 1 GM in APPROPRIATE DILUENT 1 EA IV ×2 (05:20→18:18)
[2017-05-07 06:37] LABS: BASO % 0.3 % (0.0-1.0); EOS # 0.2 10^3/uL (0.0-0.50); EOS % 2.9 % (0.0-3.0); HEMATOCRIT 41.9 % (36.0-47.0); IMMATURE GRANULOCYTE % 0.3 % (0-0); LYMPH # 1.8 10^3/uL (1.5-4.5); MEAN CORPUSCULAR HEMOGLOBIN 30.6 pg (27.0-33.0); MEAN CORPUSCULAR HGB CONC 33.4 g/dl (32.0-36.5); MEAN CORPUSCULAR VOLUME 91.5 fl (80.0-96.0); MONO # 0.7 10^3/uL (0.0-0.8); MONO % 9.3 % (0.0-5.0); NEUTROPHILS # 4.6 10^3/uL (1.8-7.7); NEUTROPHILS % 62.2 % (36.0-66.0); PLATELET COUNT, AUTOMATED 160 10^3/uL (150-450); RED BLOOD COUNT 4.58 10^6/uL (4.00-5.40); RED CELL DISTRIBUTION WIDTH 14.4 % (11.5-14.5); WHITE BLOOD COUNT 7.3 10^3/uL (4.0-10.0)
[2017-05-07 06:57] LABS: ALBUMIN 2.3 GM/DL (3.2-5.2); ALBUMIN/GLOBULIN RATIO 0.64 (1.00-1.93); ALKALINE PHOSPHATASE 75 U/L (45-117); ALT/SGPT 18 U/L (12-78); ANION GAP 6 MEQ/L (8-16); AST/SGOT 34 U/L (7-37); BILIRUBIN,DIRECT 0.4 MG/DL (0.0-0.2); BLOOD UREA NITROGEN 33 MG/DL (7-18); CALCIUM LEVEL 8.2 MG/DL (8.8-10.2); CARBON DIOXIDE LEVEL 26 MEQ/L (21-32); CHLORIDE LEVEL 102 MEQ/L (98-107); CREATININE FOR GFR 1.44 MG/DL (0.55-1.02); GLOMERULAR FILTRATION RATE 36.6 (>32); GLUCOSE, FASTING 107 MG/DL (83-110); SODIUM LEVEL 134 MEQ/L (136-145); TOTAL PROTEIN 5.9 GM/DL (6.4-8.2)
[2017-05-07] MEDS ORDERED: NS 1,000 ML IV (08:30)
[2017-05-07 08:51] LABS: NT-PRO BNP 2880 PG/ML (<450)
[2017-05-07] MEDS: ALPRAZolam 0.25 MG TAB PO (09:00)
[2017-05-07] MEDS: SENOKOT S TAB PO ×2 (10:01→20:45)
[2017-05-07] MEDS: MULTIVITAMINS/MINERALS THERAP 1 TAB PO (10:02)
[2017-05-07] MEDS: guaiFENesin ER 600 MG TAB PO ×2 (10:02→20:45)
[2017-05-07] MEDS: LORATADINE 10 MG TAB PO (10:03)
[2017-05-07] MEDS: APIXABAN 2.5 MG TAB (ELIQUIS) PO ×2 (10:03→20:45)
[2017-05-07] MEDS: LACTULOSE 20 GM/30 ML SYRUP UD PO ×2 (10:38→20:45)
[2017-05-07] MEDS: LIDOCAINE 5% (LIDODERM) PATCH TD (10:42)
[2017-05-07] MEDS: ACETAMINOPHEN TAB 650MG DOSE (2X325MG) PO (11:34)
[2017-05-07] MEDS: POLYVINYL ALCOHOL OPHTH SOLN 15 ML(LIQUITEARS) OU ×4 (11:48→20:46)
[2017-05-07] MEDS: FUROSEMIDE 100 MG/10 ML VIAL (J1940) IV ×3 (11:50→23:42)
[2017-05-07] MEDS: MORPHINE 2 MG/ML 1ML SYRINGE (J2270) IV (16:09)
[2017-05-07] MEDS: GI COCKTAIL 50ML BTL(HYOSCYAMINE/MAALOX/LIDOCAINE VISCOUS)(1:3:1) PO (16:37)
[2017-05-07] MEDS: **NOTE PATIENT COMMENT** MISC XX (21:00)
[2017-05-08] MEDS: IPRATROPIUM 0.5MG/ALBUTEROL 2.5MG INH SOL UD 3ML (DUONEB)(J7620) NEB ×4 (02:00→20:00)
[2017-05-08] MEDS: FUROSEMIDE 100 MG/10 ML VIAL (J1940) IV (06:10)
[2017-05-08] MEDS: CEFEPIME HCL 1 GM in APPROPRIATE DILUENT 1 EA IV (06:12)
[2017-05-08 06:56] LABS: BASO % 0.4 % (0.0-1.0); EOS # 0.2 10^3/uL (0.0-0.50); EOS % 3.1 % (0.0-3.0); HEMATOCRIT 44.8 % (36.0-47.0); HEMOGLOBIN 15.3 g/dl (12.0-16.0); IMMATURE GRANULOCYTE % 0.3 % (0-0); LYMPH # 1.8 10^3/uL (1.5-4.5); LYMPH % 23.9 % (24.0-44.0); MEAN CORPUSCULAR HEMOGLOBIN 30.6 pg (27.0-33.0); MEAN CORPUSCULAR HGB CONC 34.2 g/dl (32.0-36.5); MEAN CORPUSCULAR VOLUME 89.6 fl (80.0-96.0); MONO # 0.7 10^3/uL (0.0-0.8); MONO % 8.7 % (0.0-5.0); NEUTROPHILS # 4.8 10^3/uL (1.8-7.7); NEUTROPHILS % 63.6 % (36.0-66.0); PLATELET COUNT, AUTOMATED 151 10^3/uL (150-450); RED CELL DISTRIBUTION WIDTH 14.1 % (11.5-14.5); WHITE BLOOD COUNT 7.5 10^3/uL (4.0-10.0)
[2017-05-08 06:57] LABS: ALBUMIN 2.6 GM/DL (3.2-5.2); BLOOD UREA NITROGEN 20 MG/DL (7-18); CALCIUM LEVEL 7.7 MG/DL (8.8-10.2)
[2017-05-08] MEDS ORDERED: SCOPOLAMINE 1MG TRANSDERMAL PATCH TOP (08:30)
[2017-05-08] MEDS ORDERED: MORPHINE 2 MG/ML 1ML SYRINGE (J2270) IV (08:30)
[2017-05-08] MEDS ORDERED: LORazepam 2 MG/ML VIAL (J2060) IV (08:30)
[2017-05-08] MEDS: MULTIVITAMINS/MINERALS THERAP 1 TAB PO (10:33)
[2017-05-08] MEDS: LACTULOSE 20 GM/30 ML SYRUP UD PO (10:33)
[2017-05-08] MEDS: guaiFENesin ER 600 MG TAB PO ×2 (10:33→21:11)
[2017-05-08] MEDS: POLYVINYL ALCOHOL OPHTH SOLN 15 ML(LIQUITEARS) OU ×4 (10:34→21:13)
[2017-05-08] MEDS: SENOKOT S TAB PO ×2 (10:34→21:12)
[2017-05-08 13:20] LABS: CREATININE FOR GFR 1.02 MG/DL (0.55-1.02); GLOMERULAR FILTRATION RATE 54.4 (>32); GLUCOSE, FASTING 112 MG/DL (83-110)
[2017-05-08 13:25] LABS: ALT/SGPT 19 U/L (12-78); ANION GAP 6 MEQ/L (8-16); AST/SGOT 34 U/L (7-37); CARBON DIOXIDE LEVEL 33 MEQ/L (21-32); CHLORIDE LEVEL 98 MEQ/L (98-107); POTASSIUM SERUM 2.7 MEQ/L (3.5-5.1); SODIUM LEVEL 137 MEQ/L (136-145)
[2017-05-08 13:26] LABS: ALBUMIN/GLOBULIN RATIO 0.72 (1.00-1.93); ALKALINE PHOSPHATASE 85 U/L (45-117); BILIRUBIN,DIRECT 0.6 MG/DL (0.0-0.2); BILIRUBIN,TOTAL 1.2 MG/DL (0.2-1.0); TOTAL PROTEIN 6.2 GM/DL (6.4-8.2)
[2017-05-08] MEDS: **NOTE PATIENT COMMENT** MISC XX (20:33)
[2017-05-08] MEDS: ACETAMINOPHEN TAB 650MG DOSE (2X325MG) PO (21:12)
[2017-05-09] MEDS: IPRATROPIUM 0.5MG/ALBUTEROL 2.5MG INH SOL UD 3ML (DUONEB)(J7620) NEB ×4 (02:00→20:49)
[2017-05-09] MEDS: SENOKOT S TAB PO ×2 (10:13→20:41)
[2017-05-09] MEDS: MULTIVITAMINS/MINERALS THERAP 1 TAB PO (10:14)
[2017-05-09] MEDS: POLYVINYL ALCOHOL OPHTH SOLN 15 ML(LIQUITEARS) OU ×4 (10:14→20:41)
[2017-05-09] MEDS: BENZONATATE 100 MG CAP PO ×3 (10:14→20:41)
[2017-05-09] MEDS: guaiFENesin ER 600 MG TAB PO ×2 (10:14→20:41)
[2017-05-09] MEDS: **NOTE PATIENT COMMENT** MISC XX (20:41)
[2017-05-10] MEDS: IPRATROPIUM 0.5MG/ALBUTEROL 2.5MG INH SOL UD 3ML (DUONEB)(J7620) NEB ×3 (02:00→19:51)
[2017-05-10] MEDS: ACETAMINOPHEN TAB 650MG DOSE (2X325MG) PO (03:22)
[2017-05-10] MEDS ORDERED: MORPHINE 10MG/0.5ML ORAL CONCENTRATE SOLUTION U/D SL (08:45)
[2017-05-10] MEDS: POLYVINYL ALCOHOL OPHTH SOLN 15 ML(LIQUITEARS) OU ×4 (09:00→21:53)
[2017-05-10] MEDS: MULTIVITAMINS/MINERALS THERAP 1 TAB PO (11:12)
[2017-05-10] MEDS: guaiFENesin ER 600 MG TAB PO ×2 (11:12→21:52)
[2017-05-10] MEDS: BENZONATATE 100 MG CAP PO ×3 (11:12→21:52)
[2017-05-10] MEDS: TORSEMIDE 20 MG TAB PO ×2 (11:12→21:52)
[2017-05-10] MEDS: SENOKOT S TAB PO ×2 (11:12→21:52)
[2017-05-10] MEDS: **NOTE PATIENT COMMENT** MISC XX (21:00)
[2017-05-10] MEDS: LORazepam 1 MG TAB PO (21:52)
[2017-05-11] MEDS: IPRATROPIUM 0.5MG/ALBUTEROL 2.5MG INH SOL UD 3ML (DUONEB)(J7620) NEB ×4 (01:35→19:47)
[2017-05-11] MEDS: POLYVINYL ALCOHOL OPHTH SOLN 15 ML(LIQUITEARS) OU ×4 (09:00→20:09)
[2017-05-11] MEDS: guaiFENesin ER 600 MG TAB PO ×2 (09:34→20:06)
[2017-05-11] MEDS: MULTIVITAMINS/MINERALS THERAP 1 TAB PO (09:34)
[2017-05-11] MEDS: TORSEMIDE 20 MG TAB PO ×2 (09:34→20:07)
[2017-05-11] MEDS: SENOKOT S TAB PO ×2 (09:34→20:06)
[2017-05-11] MEDS: BENZONATATE 100 MG CAP PO (09:34)
[2017-05-11] MEDS: diphenhydrAMINE 12.5MG/5ML ELIXIR UDC PO (20:07)
[2017-05-11] MEDS: **NOTE PATIENT COMMENT** MISC XX (20:09)
[2017-05-12] MEDS: IPRATROPIUM 0.5MG/ALBUTEROL 2.5MG INH SOL UD 3ML (DUONEB)(J7620) NEB ×5 (02:00→21:50)
[2017-05-12] MEDS: POLYVINYL ALCOHOL OPHTH SOLN 15 ML(LIQUITEARS) OU ×4 (09:00→20:40)
[2017-05-12] MEDS: SENOKOT S TAB PO ×2 (09:45→20:39)
[2017-05-12] MEDS: TORSEMIDE 20 MG TAB PO ×2 (09:45→20:38)
[2017-05-12] MEDS: guaiFENesin ER 600 MG TAB PO ×2 (09:45→20:38)
[2017-05-12] MEDS: MULTIVITAMINS/MINERALS THERAP 1 TAB PO (09:45)
[2017-05-12] MEDS: diphenhydrAMINE 12.5MG/5ML ELIXIR UDC PO ×2 (18:14→23:17)
[2017-05-12] MEDS: ACETAMINOPHEN TAB 650MG DOSE (2X325MG) PO (20:39)
[2017-05-12] MEDS: **NOTE PATIENT COMMENT** MISC XX (21:00)
[2017-05-13] MEDS: MORPHINE 10MG/0.5ML ORAL CONCENTRATE SOLUTION U/D SL (00:28)
[2017-05-13] MEDS: SENOKOT S TAB PO ×2 (09:21→20:07)
[2017-05-13] MEDS: guaiFENesin ER 600 MG TAB PO ×2 (09:22→20:07)
[2017-05-13] MEDS: POLYVINYL ALCOHOL OPHTH SOLN 15 ML(LIQUITEARS) OU ×4 (09:22→20:19)
[2017-05-13] MEDS: TORSEMIDE 20 MG TAB PO ×2 (09:22→20:08)
[2017-05-13] MEDS: MULTIVITAMINS/MINERALS THERAP 1 TAB PO (09:22)
[2017-05-13] MEDS: diphenhydrAMINE 12.5MG/5ML ELIXIR UDC PO (17:26)
[2017-05-13] MEDS: **NOTE PATIENT COMMENT** MISC XX (20:19)
[2017-05-13] MEDS: IPRATROPIUM 0.5MG/ALBUTEROL 2.5MG INH SOL UD 3ML (DUONEB)(J7620) NEB (21:14)
[2017-05-14] MEDS: IPRATROPIUM 0.5MG/ALBUTEROL 2.5MG INH SOL UD 3ML (DUONEB)(J7620) NEB ×4 (02:00→20:00)
[2017-05-14] MEDS: guaiFENesin ER 600 MG TAB PO ×2 (09:40→20:17)
[2017-05-14] MEDS: SENOKOT S TAB PO ×2 (09:40→20:24)
[2017-05-14] MEDS: TORSEMIDE 20 MG TAB PO ×2 (09:40→20:17)
[2017-05-14] MEDS: POLYVINYL ALCOHOL OPHTH SOLN 15 ML(LIQUITEARS) OU ×4 (09:40→20:24)
[2017-05-14] MEDS: MULTIVITAMINS/MINERALS THERAP 1 TAB PO (09:40)
[2017-05-14] MEDS ORDERED: POLYVINYL ALCOHOL OPHTH SOLN 15 ML(LIQUITEARS) OU (11:30)
[2017-05-14] MEDS: ERYTHROMYCIN OPHTH OINT OU (13:51)
[2017-05-14] MEDS: diphenhydrAMINE 12.5MG/5ML ELIXIR UDC PO ×2 (16:48)
[2017-05-14] MEDS: MORPHINE 10MG/0.5ML ORAL CONCENTRATE SOLUTION U/D SL (18:59)
[2017-05-14] MEDS: RAMELTEON 8 MG TAB (ROZEREM) PO (20:17)
[2017-05-14] MEDS: ACETAMINOPHEN TAB 650MG DOSE (2X325MG) PO (20:19)
[2017-05-14] MEDS: **NOTE PATIENT COMMENT** MISC XX (20:24)
[2017-05-15] MEDS: diphenhydrAMINE 12.5MG/5ML ELIXIR UDC PO
[2017-05-15] MEDS: MORPHINE 10MG/0.5ML ORAL CONCENTRATE SOLUTION U/D SL ×2 (01:05→23:00)
[2017-05-15] MEDS: IPRATROPIUM 0.5MG/ALBUTEROL 2.5MG INH SOL UD 3ML (DUONEB)(J7620) NEB ×4 (02:00→20:00)
[2017-05-15] MEDS: SENOKOT S TAB PO ×2 (09:00→20:47)
[2017-05-15] MEDS: guaiFENesin ER 600 MG TAB PO ×2 (09:00→20:47)
[2017-05-15] MEDS: TORSEMIDE 20 MG TAB PO ×2 (09:00→20:48)
[2017-05-15] MEDS: POLYVINYL ALCOHOL OPHTH SOLN 15 ML(LIQUITEARS) OU ×4 (09:00→20:49)
[2017-05-15] MEDS: MULTIVITAMINS/MINERALS THERAP 1 TAB PO (09:00)
[2017-05-15] MEDS: RAMELTEON 8 MG TAB (ROZEREM) PO (20:47)
[2017-05-15] MEDS: CHLORASEPTIC SPRAY MT (20:48)
[2017-05-15] MEDS: **NOTE PATIENT COMMENT** MISC XX (20:48)
[2017-05-15] MEDS: LORazepam 0.5 MG TAB PO (22:58)
[2017-05-16] MEDS: IPRATROPIUM 0.5MG/ALBUTEROL 2.5MG INH SOL UD 3ML (DUONEB)(J7620) NEB ×4 (02:00→20:00)
[2017-05-16] MEDS: SENOKOT S TAB PO ×2 (09:27→20:53)
[2017-05-16] MEDS: MULTIVITAMINS/MINERALS THERAP 1 TAB PO (09:27)
[2017-05-16] MEDS: guaiFENesin ER 600 MG TAB PO ×2 (09:27→20:53)
[2017-05-16] MEDS: TORSEMIDE 20 MG TAB PO ×2 (09:27→20:53)
[2017-05-16] MEDS: POLYVINYL ALCOHOL OPHTH SOLN 15 ML(LIQUITEARS) OU ×4 (09:28→20:54)
[2017-05-16] MEDS: ACETAMINOPHEN TAB 650MG DOSE (2X325MG) PO ×2 (16:33→20:55)
[2017-05-16] MEDS: RAMELTEON 8 MG TAB (ROZEREM) PO (20:53)
[2017-05-16] MEDS: **NOTE PATIENT COMMENT** MISC XX (20:54)
[2017-05-17] MEDS: IPRATROPIUM 0.5MG/ALBUTEROL 2.5MG INH SOL UD 3ML (DUONEB)(J7620) NEB ×4 (01:19→20:00)
[2017-05-17] MEDS: ACETAMINOPHEN TAB 650MG DOSE (2X325MG) PO ×3 (06:13→22:31)
[2017-05-17] MEDS: MULTIVITAMINS/MINERALS THERAP 1 TAB PO (09:46)
[2017-05-17] MEDS: MOM 30ML SUSPENSION UDC PO (09:46)
[2017-05-17] MEDS: SENOKOT S TAB PO ×2 (09:47→21:15)
[2017-05-17] MEDS: POLYVINYL ALCOHOL OPHTH SOLN 15 ML(LIQUITEARS) OU ×4 (09:47→21:16)
[2017-05-17] MEDS: TORSEMIDE 20 MG TAB PO ×2 (09:47→21:15)
[2017-05-17] MEDS: guaiFENesin ER 600 MG TAB PO ×2 (09:47→21:15)
[2017-05-17] MEDS: FLEET ENEMA PR (16:15)
[2017-05-17] MEDS: **NOTE PATIENT COMMENT** MISC XX (21:00)
[2017-05-17] MEDS: RAMELTEON 8 MG TAB (ROZEREM) PO (21:14)
[2017-05-17] MEDS: LORazepam 0.5 MG TAB PO (22:31)
[2017-05-18] MEDS: IPRATROPIUM 0.5MG/ALBUTEROL 2.5MG INH SOL UD 3ML (DUONEB)(J7620) NEB ×4 (02:00→20:16)
[2017-05-18] MEDS: MULTIVITAMINS/MINERALS THERAP 1 TAB PO (09:08)
[2017-05-18] MEDS: guaiFENesin ER 600 MG TAB PO ×2 (09:08→20:09)
[2017-05-18] MEDS: SENOKOT S TAB PO ×2 (09:09→20:10)
[2017-05-18] MEDS: POLYVINYL ALCOHOL OPHTH SOLN 15 ML(LIQUITEARS) OU ×4 (09:09→20:09)
[2017-05-18] MEDS: TORSEMIDE 20 MG TAB PO ×2 (09:09→20:10)
[2017-05-18] MEDS: MOM 30ML SUSPENSION UDC PO (20:09)
[2017-05-18] MEDS: RAMELTEON 8 MG TAB (ROZEREM) PO (20:09)
[2017-05-18] MEDS: **NOTE PATIENT COMMENT** MISC XX (21:00)
[2017-05-18] MEDS: LORazepam 0.5 MG TAB PO (22:42)
[2017-05-19] MEDS: IPRATROPIUM 0.5MG/ALBUTEROL 2.5MG INH SOL UD 3ML (DUONEB)(J7620) NEB ×4 (00:01→19:46)
[2017-05-19] MEDS: LORazepam 0.5 MG TAB PO ×2 (02:02→20:23)
[2017-05-19] MEDS: ACETAMINOPHEN TAB 650MG DOSE (2X325MG) PO ×3 (02:02→20:24)
[2017-05-19] MEDS: TORSEMIDE 20 MG TAB PO ×2 (09:41→20:24)
[2017-05-19] MEDS: SENOKOT S TAB PO ×2 (09:41→21:00)
[2017-05-19] MEDS: MULTIVITAMINS/MINERALS THERAP 1 TAB PO (09:41)
[2017-05-19] MEDS: guaiFENesin ER 600 MG TAB PO ×2 (09:41→20:23)
[2017-05-19] MEDS: MOM 30ML SUSPENSION UDC PO (09:42)
[2017-05-19] MEDS: POLYVINYL ALCOHOL OPHTH SOLN 15 ML(LIQUITEARS) OU ×4 (09:42→20:23)
[2017-05-19] MEDS: RAMELTEON 8 MG TAB (ROZEREM) PO (20:23)
[2017-05-19] MEDS: **NOTE PATIENT COMMENT** MISC XX (21:00)
[2017-05-20] MEDS: ACETAMINOPHEN TAB 650MG DOSE (2X325MG) PO ×3 (00:29→20:06)
[2017-05-20] MEDS: LORazepam 0.5 MG TAB PO ×3 (00:30→22:09)
[2017-05-20] MEDS: IPRATROPIUM 0.5MG/ALBUTEROL 2.5MG INH SOL UD 3ML (DUONEB)(J7620) NEB ×5 (01:22→20:00)
[2017-05-20] MEDS: SENOKOT S TAB PO ×2 (08:26→21:00)
[2017-05-20] MEDS: guaiFENesin ER 600 MG TAB PO ×2 (08:26→22:09)
[2017-05-20] MEDS: TORSEMIDE 20 MG TAB PO ×2 (08:26→21:00)
[2017-05-20] MEDS: MULTIVITAMINS/MINERALS THERAP 1 TAB PO (08:26)
[2017-05-20] MEDS: POLYVINYL ALCOHOL OPHTH SOLN 15 ML(LIQUITEARS) OU ×4 (08:27→21:00)
[2017-05-20] MEDS: **NOTE PATIENT COMMENT** MISC XX (21:00)
[2017-05-20] MEDS: RAMELTEON 8 MG TAB (ROZEREM) PO (22:09)
[2017-05-21] MEDS: IPRATROPIUM 0.5MG/ALBUTEROL 2.5MG INH SOL UD 3ML (DUONEB)(J7620) NEB ×4 (02:00→19:50)
[2017-05-21] MEDS: LORazepam 0.5 MG TAB PO (02:32)
[2017-05-21] MEDS: ACETAMINOPHEN TAB 650MG DOSE (2X325MG) PO (02:32)
[2017-05-21] MEDS: MULTIVITAMINS/MINERALS THERAP 1 TAB PO (09:47)
[2017-05-21] MEDS: SENOKOT S TAB PO ×2 (09:48→21:39)
[2017-05-21] MEDS: guaiFENesin ER 600 MG TAB PO ×3 (09:48→22:06)
[2017-05-21] MEDS: POLYVINYL ALCOHOL OPHTH SOLN 15 ML(LIQUITEARS) OU ×4 (09:48→21:39)
[2017-05-21] MEDS: TORSEMIDE 20 MG TAB PO ×2 (09:48→21:39)
[2017-05-21] MEDS: **NOTE PATIENT COMMENT** MISC XX (21:05)
[2017-05-21] MEDS: RAMELTEON 8 MG TAB (ROZEREM) PO (21:39)
[2017-05-22] MEDS: guaiFENesin DM LIQ 10ML UD PO ×2 (00:36→21:53)
[2017-05-22] MEDS: IPRATROPIUM 0.5MG/ALBUTEROL 2.5MG INH SOL UD 3ML (DUONEB)(J7620) NEB ×4 (01:34→20:05)
[2017-05-22] MEDS: guaiFENesin ER 600 MG TAB PO ×2 (08:36→20:11)
[2017-05-22] MEDS: SENOKOT S TAB PO ×2 (08:36→21:51)
[2017-05-22] MEDS: TORSEMIDE 20 MG TAB PO ×2 (08:36→21:51)
[2017-05-22] MEDS: MULTIVITAMINS/MINERALS THERAP 1 TAB PO (08:36)
[2017-05-22] MEDS: POLYVINYL ALCOHOL OPHTH SOLN 15 ML(LIQUITEARS) OU ×4 (08:37→21:53)
[2017-05-22] MEDS: AZELASTINE 137MCG NASAL SPY 30 ML (ASTELIN) (12:01)
[2017-05-22] MEDS: ACETAMINOPHEN TAB 650MG DOSE (2X325MG) PO ×2 (12:01→21:52)
[2017-05-22] MEDS: **NOTE PATIENT COMMENT** MISC XX (21:00)
[2017-05-22] MEDS: RAMELTEON 8 MG TAB (ROZEREM) PO (21:52)
[2017-05-23] MEDS: IPRATROPIUM 0.5MG/ALBUTEROL 2.5MG INH SOL UD 3ML (DUONEB)(J7620) NEB ×4 (02:00→20:25)
[2017-05-23] MEDS: ANALGESIC BALM CRM 120 GM TOP (06:00)
[2017-05-23] MEDS: BENZONATATE 100 MG CAP PO ×3 (08:14→22:06)
[2017-05-23] MEDS: SENOKOT S TAB PO ×2 (08:14→22:07)
[2017-05-23] MEDS: MULTIVITAMINS/MINERALS THERAP 1 TAB PO (08:14)
[2017-05-23] MEDS: TORSEMIDE 20 MG TAB PO ×2 (08:14→22:07)
[2017-05-23] MEDS: POLYVINYL ALCOHOL OPHTH SOLN 15 ML(LIQUITEARS) OU ×4 (08:15→22:08)
[2017-05-23] MEDS: AZELASTINE 137MCG NASAL SPY 30 ML (ASTELIN) (08:15)
[2017-05-23] MEDS: guaiFENesin ER 600 MG TAB PO ×2 (08:15→22:06)
[2017-05-23] MEDS: **NOTE PATIENT COMMENT** MISC XX (21:00)
[2017-05-23] MEDS: RAMELTEON 8 MG TAB (ROZEREM) PO (22:07)
[2017-05-23] MEDS: ACETAMINOPHEN TAB 650MG DOSE (2X325MG) PO (23:25)
[2017-05-24] MEDS: IPRATROPIUM 0.5MG/ALBUTEROL 2.5MG INH SOL UD 3ML (DUONEB)(J7620) NEB ×4 (01:30→19:20)
[2017-05-24] MEDS: BENZONATATE 100 MG CAP PO ×3 (08:55→21:56)
[2017-05-24] MEDS: MULTIVITAMINS/MINERALS THERAP 1 TAB PO (08:55)
[2017-05-24] MEDS: guaiFENesin DM LIQ 10ML UD PO ×2 (08:55→16:02)
[2017-05-24] MEDS: AZELASTINE 137MCG NASAL SPY 30 ML (ASTELIN) (08:56)
[2017-05-24] MEDS: POLYVINYL ALCOHOL OPHTH SOLN 15 ML(LIQUITEARS) OU ×4 (08:56→21:57)
[2017-05-24] MEDS: SENOKOT S TAB PO ×2 (08:56→21:56)
[2017-05-24] MEDS: TORSEMIDE 20 MG TAB PO ×2 (08:56→21:56)
[2017-05-24] MEDS: guaiFENesin ER 600 MG TAB PO ×2 (08:56→21:56)
[2017-05-24] MEDS: ACETAMINOPHEN TAB 650MG DOSE (2X325MG) PO (09:09)
[2017-05-24] MEDS: RAMELTEON 8 MG TAB (ROZEREM) PO (21:56)
[2017-05-24] MEDS: **NOTE PATIENT COMMENT** MISC XX (21:57)
[2017-05-25] MEDS: IPRATROPIUM 0.5MG/ALBUTEROL 2.5MG INH SOL UD 3ML (DUONEB)(J7620) NEB ×4 (01:07→20:30)
[2017-05-25] MEDS: ACETAMINOPHEN TAB 650MG DOSE (2X325MG) PO (02:22)
[2017-05-25] MEDS: MULTIVITAMINS/MINERALS THERAP 1 TAB PO (08:58)
[2017-05-25] MEDS: POLYVINYL ALCOHOL OPHTH SOLN 15 ML(LIQUITEARS) OU ×4 (08:59→20:17)
[2017-05-25] MEDS: BENZONATATE 100 MG CAP PO ×3 (08:59→20:16)
[2017-05-25] MEDS: SENOKOT S TAB PO ×2 (08:59→20:15)
[2017-05-25] MEDS: guaiFENesin ER 600 MG TAB PO ×2 (08:59→20:15)
[2017-05-25] MEDS: TORSEMIDE 20 MG TAB PO ×2 (08:59→20:16)
[2017-05-25] MEDS: AZELASTINE 137MCG NASAL SPY 30 ML (ASTELIN) (09:00)
[2017-05-25] MEDS: RAMELTEON 8 MG TAB (ROZEREM) PO (20:15)
[2017-05-25] MEDS: **NOTE PATIENT COMMENT** MISC XX (20:16)
[2017-05-26] MEDS: ACETAMINOPHEN TAB 650MG DOSE (2X325MG) PO ×2 (00:03→10:35)
[2017-05-26] MEDS: IPRATROPIUM 0.5MG/ALBUTEROL 2.5MG INH SOL UD 3ML (DUONEB)(J7620) NEB ×4 (01:36→19:45)
[2017-05-26] MEDS: TORSEMIDE 20 MG TAB PO ×2 (08:40→20:30)
[2017-05-26] MEDS: BENZONATATE 100 MG CAP PO ×3 (08:40→20:29)
[2017-05-26] MEDS: guaiFENesin ER 600 MG TAB PO ×2 (08:40→20:30)
[2017-05-26] MEDS: SENOKOT S TAB PO ×2 (08:41→20:30)
[2017-05-26] MEDS: AZELASTINE 137MCG NASAL SPY 30 ML (ASTELIN) (08:41)
[2017-05-26] MEDS: MULTIVITAMINS/MINERALS THERAP 1 TAB PO (08:41)
[2017-05-26] MEDS: POLYVINYL ALCOHOL OPHTH SOLN 15 ML(LIQUITEARS) OU ×4 (08:42→20:29)
[2017-05-26] MEDS: **NOTE PATIENT COMMENT** MISC XX (20:29)
[2017-05-26] MEDS: RAMELTEON 8 MG TAB (ROZEREM) PO (20:29)
[2017-05-27] MEDS: IPRATROPIUM 0.5MG/ALBUTEROL 2.5MG INH SOL UD 3ML (DUONEB)(J7620) NEB ×4 (01:23→19:39)
[2017-05-27] MEDS: ACETAMINOPHEN TAB 650MG DOSE (2X325MG) PO (05:48)
[2017-05-27] MEDS: MULTIVITAMINS/MINERALS THERAP 1 TAB PO (09:00)
[2017-05-27] MEDS: SENOKOT S TAB PO ×2 (09:01→20:42)
[2017-05-27] MEDS: BENZONATATE 100 MG CAP PO ×3 (09:01→20:42)
[2017-05-27] MEDS: TORSEMIDE 20 MG TAB PO ×2 (09:02→20:42)
[2017-05-27] MEDS: guaiFENesin ER 600 MG TAB PO ×2 (09:05→20:42)
[2017-05-27] MEDS: AZELASTINE 137MCG NASAL SPY 30 ML (ASTELIN) (09:06)
[2017-05-27] MEDS: POLYVINYL ALCOHOL OPHTH SOLN 15 ML(LIQUITEARS) OU ×4 (09:06→20:43)
[2017-05-27] MEDS: RAMELTEON 8 MG TAB (ROZEREM) PO (20:42)
[2017-05-27] MEDS: **NOTE PATIENT COMMENT** MISC XX (21:00)
[2017-05-27] MEDS: LORazepam 0.5 MG TAB PO (23:39)
[2017-05-28] MEDS: IPRATROPIUM 0.5MG/ALBUTEROL 2.5MG INH SOL UD 3ML (DUONEB)(J7620) NEB ×5 (01:20→23:48)
[2017-05-28] MEDS: TORSEMIDE 20 MG TAB PO ×2 (08:26→21:40)
[2017-05-28] MEDS: MULTIVITAMINS/MINERALS THERAP 1 TAB PO (08:26)
[2017-05-28] MEDS: BENZONATATE 100 MG CAP PO ×3 (08:26→21:41)
[2017-05-28] MEDS: SENOKOT S TAB PO ×2 (08:26→21:40)
[2017-05-28] MEDS: guaiFENesin ER 600 MG TAB PO ×2 (08:27→21:40)
[2017-05-28] MEDS: POLYVINYL ALCOHOL OPHTH SOLN 15 ML(LIQUITEARS) OU ×4 (08:27→21:42)
[2017-05-28] MEDS: AZELASTINE 137MCG NASAL SPY 30 ML (ASTELIN) (08:27)
[2017-05-28] MEDS: AUGMENTIN 500 MG TAB PO ×2 (11:46→21:40)
[2017-05-28] MEDS: **NOTE PATIENT COMMENT** MISC XX (21:00)
[2017-05-28] MEDS: RAMELTEON 8 MG TAB (ROZEREM) PO (21:40)
[2017-05-28] MEDS: ACETAMINOPH W/CODEINE #3 TAB UD PO (21:41)
[2017-05-29] MEDS: LORazepam 0.5 MG TAB PO ×2 (02:12→23:37)
[2017-05-29] MEDS: ACETAMINOPHEN TAB 650MG DOSE (2X325MG) PO ×2 (02:12→23:37)
[2017-05-29] MEDS: guaiFENesin DM LIQ 10ML UD PO ×3 (02:12→21:51)
[2017-05-29] MEDS: IPRATROPIUM 0.5MG/ALBUTEROL 2.5MG INH SOL UD 3ML (DUONEB)(J7620) NEB ×3 (07:11→19:15)
[2017-05-29] MEDS: BENZONATATE 100 MG CAP PO ×3 (09:06→20:47)
[2017-05-29] MEDS: MULTIVITAMINS/MINERALS THERAP 1 TAB PO (09:06)
[2017-05-29] MEDS: guaiFENesin ER 600 MG TAB PO ×2 (09:06→20:48)
[2017-05-29] MEDS: AUGMENTIN 500 MG TAB PO ×2 (09:06→20:48)
[2017-05-29] MEDS: SENOKOT S TAB PO ×2 (09:06→20:47)
[2017-05-29] MEDS: TORSEMIDE 20 MG TAB PO ×2 (09:06→20:47)
[2017-05-29] MEDS: AZELASTINE 137MCG NASAL SPY 30 ML (ASTELIN) (09:07)
[2017-05-29] MEDS: POLYVINYL ALCOHOL OPHTH SOLN 15 ML(LIQUITEARS) OU ×4 (09:07→20:48)
[2017-05-29] MEDS: RAMELTEON 8 MG TAB (ROZEREM) PO (20:47)
[2017-05-29] MEDS: **NOTE PATIENT COMMENT** MISC XX (21:00)
[2017-05-30] MEDS: IPRATROPIUM 0.5MG/ALBUTEROL 2.5MG INH SOL UD 3ML (DUONEB)(J7620) NEB (00:58)
[2017-05-30] MEDS: guaiFENesin DM LIQ 10ML UD PO (02:22)
[2017-05-30] MEDS: SENOKOT S TAB PO ×2 (09:32→21:15)
[2017-05-30] MEDS: guaiFENesin ER 600 MG TAB PO ×2 (09:32→21:15)
[2017-05-30] MEDS: AUGMENTIN 500 MG TAB PO ×2 (09:32→21:15)
[2017-05-30] MEDS: MULTIVITAMINS/MINERALS THERAP 1 TAB PO (09:33)
[2017-05-30] MEDS: TORSEMIDE 20 MG TAB PO ×2 (09:33→21:16)
[2017-05-30] MEDS: AZELASTINE 137MCG NASAL SPY 30 ML (ASTELIN) (09:33)
[2017-05-30] MEDS: POLYVINYL ALCOHOL OPHTH SOLN 15 ML(LIQUITEARS) OU ×4 (09:33→21:16)
[2017-05-30] MEDS: BENZONATATE 100 MG CAP PO ×3 (09:33→21:15)
[2017-05-30] MEDS: **NOTE PATIENT COMMENT** MISC XX (21:00)
[2017-05-30] MEDS: RAMELTEON 8 MG TAB (ROZEREM) PO (21:15)
[2017-05-30] MEDS: ACETAMINOPH W/CODEINE #3 TAB UD PO (21:17)
[2017-05-31] MEDS: BENZONATATE 100 MG CAP PO ×3 (08:03→21:59)
[2017-05-31] MEDS: SENOKOT S TAB PO ×2 (08:03→22:00)
[2017-05-31] MEDS: AUGMENTIN 500 MG TAB PO ×2 (08:03→22:00)
[2017-05-31] MEDS: MULTIVITAMINS/MINERALS THERAP 1 TAB PO (08:03)
[2017-05-31] MEDS: ACETAMINOPHEN TAB 650MG DOSE (2X325MG) PO ×3 (08:03→23:16)
[2017-05-31] MEDS: TORSEMIDE 20 MG TAB PO ×2 (08:04→22:00)
[2017-05-31] MEDS: guaiFENesin ER 600 MG TAB PO ×2 (08:04→22:00)
[2017-05-31] MEDS: POLYVINYL ALCOHOL OPHTH SOLN 15 ML(LIQUITEARS) OU ×4 (08:05→22:01)
[2017-05-31] MEDS: AZELASTINE 137MCG NASAL SPY 30 ML (ASTELIN) (08:05)
[2017-05-31] MEDS: **NOTE PATIENT COMMENT** MISC XX (21:00)
[2017-05-31] MEDS: RAMELTEON 8 MG TAB (ROZEREM) PO (22:00)
[2017-06-01] MEDS: LIDOCAINE 5% (LIDODERM) PATCH TD (02:38)
[2017-06-01] MEDS: ACETAMINOPHEN TAB 650MG DOSE (2X325MG) PO (05:04)
[2017-06-01] MEDS: TORSEMIDE 20 MG TAB PO ×2 (09:18→21:57)
[2017-06-01] MEDS: guaiFENesin ER 600 MG TAB PO ×2 (09:18→21:57)
[2017-06-01] MEDS: AUGMENTIN 500 MG TAB PO ×2 (09:18→21:56)
[2017-06-01] MEDS: SENOKOT S TAB PO ×2 (09:18→21:57)
[2017-06-01] MEDS: BENZONATATE 100 MG CAP PO ×3 (09:18→21:57)
[2017-06-01] MEDS: MULTIVITAMINS/MINERALS THERAP 1 TAB PO (09:18)
[2017-06-01] MEDS: POLYVINYL ALCOHOL OPHTH SOLN 15 ML(LIQUITEARS) OU ×4 (09:19→21:58)
[2017-06-01] MEDS: AZELASTINE 137MCG NASAL SPY 30 ML (ASTELIN) (09:19)
[2017-06-01] MEDS: ACETAMINOPH W/CODEINE #3 TAB UD PO (09:58)
[2017-06-01] MEDS: MORPHINE 10MG/0.5ML ORAL CONCENTRATE SOLUTION U/D SL (12:00)
[2017-06-01] MEDS: diphenhydrAMINE 12.5MG/5ML ELIXIR UDC PO (12:31)
[2017-06-01] MEDS: raNITIdine SYRUP 150 MG/10 ML UDC PO ×2 (14:25→21:57)
[2017-06-01] MEDS: TRIAMCINOLONE ACET 0.1% OINTMENT 15 GM TOP ×2 (14:26→21:59)
[2017-06-01] MEDS: **NOTE PATIENT COMMENT** MISC XX (21:00)
[2017-06-01] MEDS: RAMELTEON 8 MG TAB (ROZEREM) PO (21:57)
[2017-06-02] MEDS: ACETAMINOPHEN TAB 650MG DOSE (2X325MG) PO ×4 (01:56→23:53)
[2017-06-02] MEDS: LORazepam 0.5 MG TAB PO ×2 (03:21→09:02)
[2017-06-02] MEDS: MULTIVITAMINS/MINERALS THERAP 1 TAB PO (09:02)
[2017-06-02] MEDS: SENOKOT S TAB PO ×2 (09:02→21:39)
[2017-06-02] MEDS: guaiFENesin ER 600 MG TAB PO ×2 (09:04→21:40)
[2017-06-02] MEDS: AUGMENTIN 500 MG TAB PO ×2 (09:04→21:40)
[2017-06-02] MEDS: TORSEMIDE 20 MG TAB PO ×2 (09:04→21:40)
[2017-06-02] MEDS: POLYVINYL ALCOHOL OPHTH SOLN 15 ML(LIQUITEARS) OU ×4 (09:05→21:41)
[2017-06-02] MEDS: BENZONATATE 100 MG CAP PO ×3 (09:05→21:41)
[2017-06-02] MEDS: raNITIdine SYRUP 150 MG/10 ML UDC PO ×2 (09:05→21:41)
[2017-06-02] MEDS: TRIAMCINOLONE ACET 0.1% OINTMENT 15 GM TOP ×2 (09:05→21:41)
[2017-06-02] MEDS: AZELASTINE 137MCG NASAL SPY 30 ML (ASTELIN) (09:05)
[2017-06-02] MEDS: diphenhydrAMINE 12.5MG/5ML ELIXIR UDC PO (15:28)
[2017-06-02] MEDS: RAMELTEON 8 MG TAB (ROZEREM) PO (21:00)
[2017-06-02] MEDS: **NOTE PATIENT COMMENT** MISC XX (21:00)
[2017-06-03] MEDS: LORazepam 0.5 MG TAB PO ×2 (01:00→06:15)
[2017-06-03] MEDS: diphenhydrAMINE 12.5MG/5ML ELIXIR UDC PO ×3 (01:00→23:08)
[2017-06-03] MEDS: TORSEMIDE 20 MG TAB PO ×2 (08:18→21:10)
[2017-06-03] MEDS: BENZONATATE 100 MG CAP PO ×3 (08:18→21:10)
[2017-06-03] MEDS: AZELASTINE 137MCG NASAL SPY 30 ML (ASTELIN) (08:19)
[2017-06-03] MEDS: AUGMENTIN 500 MG TAB PO ×2 (08:19→21:10)
[2017-06-03] MEDS: ACETAMINOPHEN TAB 650MG DOSE (2X325MG) PO ×3 (08:19→22:21)
[2017-06-03] MEDS: TRIAMCINOLONE ACET 0.1% OINTMENT 15 GM TOP ×2 (08:19→21:11)
[2017-06-03] MEDS: raNITIdine SYRUP 150 MG/10 ML UDC PO ×2 (08:19→21:11)
[2017-06-03] MEDS: SENOKOT S TAB PO ×2 (08:19→21:11)
[2017-06-03] MEDS: POLYVINYL ALCOHOL OPHTH SOLN 15 ML(LIQUITEARS) OU ×4 (08:20→21:11)
[2017-06-03] MEDS: guaiFENesin ER 600 MG TAB PO ×2 (09:00→21:10)
[2017-06-03] MEDS: MULTIVITAMINS/MINERALS THERAP 1 TAB PO (09:00)
[2017-06-03] MEDS: **NOTE PATIENT COMMENT** MISC XX (21:00)
[2017-06-03] MEDS: RAMELTEON 8 MG TAB (ROZEREM) PO (21:11)
[2017-06-04] MEDS: LORazepam 0.5 MG TAB PO (00:35)
[2017-06-04] MEDS: ACETAMINOPHEN TAB 650MG DOSE (2X325MG) PO ×3 (02:25→22:19)
[2017-06-04] MEDS: MORPHINE 10MG/0.5ML ORAL CONCENTRATE SOLUTION U/D SL (04:07)
[2017-06-04] MEDS: AUGMENTIN 500 MG TAB PO ×2 (09:09→22:16)
[2017-06-04] MEDS: SENOKOT S TAB PO ×2 (09:09→22:17)
[2017-06-04] MEDS: BENZONATATE 100 MG CAP PO ×3 (09:09→22:17)
[2017-06-04] MEDS: TORSEMIDE 20 MG TAB PO ×2 (09:10→22:16)
[2017-06-04] MEDS: MULTIVITAMINS/MINERALS THERAP 1 TAB PO (09:10)
[2017-06-04] MEDS: AZELASTINE 137MCG NASAL SPY 30 ML (ASTELIN) (09:10)
[2017-06-04] MEDS: guaiFENesin ER 600 MG TAB PO ×2 (09:10→22:16)
[2017-06-04] MEDS: TRIAMCINOLONE ACET 0.1% OINTMENT 15 GM TOP ×2 (09:11→22:18)
[2017-06-04] MEDS: POLYVINYL ALCOHOL OPHTH SOLN 15 ML(LIQUITEARS) OU ×4 (09:11→22:17)
[2017-06-04] MEDS: **NOTE PATIENT COMMENT** MISC XX (21:00)
[2017-06-04] MEDS: RAMELTEON 8 MG TAB (ROZEREM) PO (22:16)
[2017-06-05] MEDS: MORPHINE 10MG/0.5ML ORAL CONCENTRATE SOLUTION U/D SL (02:51)
[2017-06-05] MEDS: BENZONATATE 100 MG CAP PO ×3 (09:10→20:45)
[2017-06-05] MEDS: MULTIVITAMINS/MINERALS THERAP 1 TAB PO (09:10)
[2017-06-05] MEDS: SENOKOT S TAB PO ×2 (09:10→20:45)
[2017-06-05] MEDS: guaiFENesin ER 600 MG TAB PO ×2 (09:10→20:45)
[2017-06-05] MEDS: TORSEMIDE 20 MG TAB PO ×2 (09:10→20:44)
[2017-06-05] MEDS: AUGMENTIN 500 MG TAB PO (09:10)
[2017-06-05] MEDS: POLYVINYL ALCOHOL OPHTH SOLN 15 ML(LIQUITEARS) OU ×4 (09:11→20:45)
[2017-06-05] MEDS: AZELASTINE 137MCG NASAL SPY 30 ML (ASTELIN) (09:11)
[2017-06-05] MEDS: TRIAMCINOLONE ACET 0.1% OINTMENT 15 GM TOP (09:11)
[2017-06-05] MEDS: valACYclovir HCL 500 MG TAB PO (20:45)
[2017-06-05] MEDS: RAMELTEON 8 MG TAB (ROZEREM) PO (20:45)
[2017-06-05] MEDS: **NOTE PATIENT COMMENT** MISC XX (20:46)
[2017-06-05] MEDS: LORazepam 0.5 MG TAB PO (22:41)
[2017-06-06] MEDS: TORSEMIDE 20 MG TAB PO ×2 (08:27→21:04)
[2017-06-06] MEDS: guaiFENesin ER 600 MG TAB PO ×2 (08:28→21:04)
[2017-06-06] MEDS: valACYclovir HCL 500 MG TAB PO ×2 (08:28→21:04)
[2017-06-06] MEDS: AZELASTINE 137MCG NASAL SPY 30 ML (ASTELIN) (08:28)
[2017-06-06] MEDS: BENZONATATE 100 MG CAP PO ×3 (08:28→21:05)
[2017-06-06] MEDS: ACETAMINOPHEN TAB 650MG DOSE (2X325MG) PO ×2 (08:28→23:38)
[2017-06-06] MEDS: SENOKOT S TAB PO ×2 (08:28→21:05)
[2017-06-06] MEDS: MULTIVITAMINS/MINERALS THERAP 1 TAB PO (08:28)
[2017-06-06] MEDS: POLYVINYL ALCOHOL OPHTH SOLN 15 ML(LIQUITEARS) OU ×4 (08:29→21:00)
[2017-06-06] MEDS: **NOTE PATIENT COMMENT** MISC XX (21:00)
[2017-06-06] MEDS: RAMELTEON 8 MG TAB (ROZEREM) PO (21:04)
[2017-06-06] MEDS: LORazepam 0.5 MG TAB PO (23:38)
[2017-06-07] MEDS: guaiFENesin ER 600 MG TAB PO ×2 (09:27→20:14)
[2017-06-07] MEDS: TORSEMIDE 20 MG TAB PO ×2 (09:27→20:14)
[2017-06-07] MEDS: valACYclovir HCL 500 MG TAB PO ×2 (09:27→20:14)
[2017-06-07] MEDS: AZELASTINE 137MCG NASAL SPY 30 ML (ASTELIN) (09:28)
[2017-06-07] MEDS: BENZONATATE 100 MG CAP PO ×3 (09:28→20:14)
[2017-06-07] MEDS: POLYVINYL ALCOHOL OPHTH SOLN 15 ML(LIQUITEARS) OU ×4 (09:28→20:14)
[2017-06-07] MEDS: SENOKOT S TAB PO ×2 (09:28→20:14)
[2017-06-07] MEDS: MULTIVITAMINS/MINERALS THERAP 1 TAB PO (09:28)
[2017-06-07] MEDS: RAMELTEON 8 MG TAB (ROZEREM) PO (20:14)
[2017-06-07] MEDS: **NOTE PATIENT COMMENT** MISC XX (20:17)
[2017-06-07] MEDS: guaiFENesin DM LIQ 10ML UD PO (23:45)
[2017-06-07] MEDS: ACETAMINOPHEN TAB 650MG DOSE (2X325MG) PO (23:45)
[2017-06-07] MEDS: LORazepam 0.5 MG TAB PO (23:45)
[2017-06-08] MEDS: BENZONATATE 100 MG CAP PO ×3 (10:01→20:09)
[2017-06-08] MEDS: guaiFENesin ER 600 MG TAB PO ×2 (10:02→20:10)
[2017-06-08] MEDS: SENOKOT S TAB PO ×2 (10:03→20:09)
[2017-06-08] MEDS: AZELASTINE 137MCG NASAL SPY 30 ML (ASTELIN) (10:03)
[2017-06-08] MEDS: MULTIVITAMINS/MINERALS THERAP 1 TAB PO (10:03)
[2017-06-08] MEDS: valACYclovir HCL 500 MG TAB PO ×2 (10:03→20:10)
[2017-06-08] MEDS: TORSEMIDE 20 MG TAB PO ×2 (10:19→20:10)
[2017-06-08] MEDS: POLYVINYL ALCOHOL OPHTH SOLN 15 ML(LIQUITEARS) OU ×4 (10:19→20:11)
[2017-06-08] MEDS: ACETAMINOPHEN TAB 650MG DOSE (2X325MG) PO ×2 (13:15→20:10)
[2017-06-08] MEDS: LORazepam 0.5 MG TAB PO (20:09)
[2017-06-08] MEDS: RAMELTEON 8 MG TAB (ROZEREM) PO (20:10)
[2017-06-08] MEDS: **NOTE PATIENT COMMENT** MISC XX (20:11)
[2017-06-09] MEDS: ACETAMINOPHEN TAB 650MG DOSE (2X325MG) PO ×3 (03:11→20:32)
[2017-06-09] MEDS: LORazepam 0.5 MG TAB PO ×2 (03:11→20:32)
[2017-06-09] MEDS: MULTIVITAMINS/MINERALS THERAP 1 TAB PO (09:40)
[2017-06-09] MEDS: guaiFENesin ER 600 MG TAB PO ×2 (09:40→20:32)
[2017-06-09] MEDS: SENOKOT S TAB PO ×2 (09:41→20:32)
[2017-06-09] MEDS: TORSEMIDE 20 MG TAB PO ×2 (09:41→20:32)
[2017-06-09] MEDS: valACYclovir HCL 500 MG TAB PO ×2 (09:41→20:32)
[2017-06-09] MEDS: BENZONATATE 100 MG CAP PO ×3 (09:42→20:33)
[2017-06-09] MEDS: AZELASTINE 137MCG NASAL SPY 30 ML (ASTELIN) (09:42)
[2017-06-09] MEDS: POLYVINYL ALCOHOL OPHTH SOLN 15 ML(LIQUITEARS) OU ×4 (09:43→20:39)
[2017-06-09] MEDS: RAMELTEON 8 MG TAB (ROZEREM) PO (20:32)
[2017-06-09] MEDS: **NOTE PATIENT COMMENT** MISC XX (20:33)
[2017-06-10] MEDS: LORazepam 0.5 MG TAB PO ×2 (04:14→08:18)
[2017-06-10] MEDS: ACETAMINOPHEN TAB 650MG DOSE (2X325MG) PO (04:17)
[2017-06-10] MEDS: MORPHINE 10MG/0.5ML ORAL CONCENTRATE SOLUTION U/D SL (05:10)
[2017-06-10] MEDS: guaiFENesin ER 600 MG TAB PO ×2 (08:18→20:03)
[2017-06-10] MEDS: BENZONATATE 100 MG CAP PO ×3 (08:18→20:04)
[2017-06-10] MEDS: valACYclovir HCL 500 MG TAB PO ×2 (08:18→20:04)
[2017-06-10] MEDS: MULTIVITAMINS/MINERALS THERAP 1 TAB PO (08:18)
[2017-06-10] MEDS: SENOKOT S TAB PO ×2 (08:18→20:04)
[2017-06-10] MEDS: AZELASTINE 137MCG NASAL SPY 30 ML (ASTELIN) (08:18)
[2017-06-10] MEDS: TORSEMIDE 20 MG TAB PO ×2 (08:18→20:03)
[2017-06-10] MEDS: POLYVINYL ALCOHOL OPHTH SOLN 15 ML(LIQUITEARS) OU ×4 (08:19→20:04)
[2017-06-10] MEDS: RAMELTEON 8 MG TAB (ROZEREM) PO (20:03)
[2017-06-10] MEDS: **NOTE PATIENT COMMENT** MISC XX (20:04)
[2017-06-11] MEDS: LORazepam 0.5 MG TAB PO ×2 (04:37→11:01)
[2017-06-11] MEDS: ACETAMINOPHEN TAB 650MG DOSE (2X325MG) PO ×2 (04:38→11:01)
[2017-06-11] MEDS: SENOKOT S TAB PO ×2 (07:11→21:00)
[2017-06-11] MEDS: MULTIVITAMINS/MINERALS THERAP 1 TAB PO (07:11)
[2017-06-11] MEDS: valACYclovir HCL 500 MG TAB PO ×2 (07:11→21:00)
[2017-06-11] MEDS: TORSEMIDE 20 MG TAB PO ×2 (07:11→21:00)
[2017-06-11] MEDS: BENZONATATE 100 MG CAP PO ×3 (07:11→21:00)
[2017-06-11] MEDS: guaiFENesin ER 600 MG TAB PO ×2 (07:11→21:00)
[2017-06-11] MEDS: AZELASTINE 137MCG NASAL SPY 30 ML (ASTELIN) (07:11)
[2017-06-11] MEDS: POLYVINYL ALCOHOL OPHTH SOLN 15 ML(LIQUITEARS) OU ×4 (07:12→22:21)
[2017-06-11] MEDS: MORPHINE 10MG/0.5ML ORAL CONCENTRATE SOLUTION U/D SL (16:15)
[2017-06-11] MEDS: RAMELTEON 8 MG TAB (ROZEREM) PO (21:00)
[2017-06-11] MEDS: **NOTE PATIENT COMMENT** MISC XX (21:00)
[2017-06-12] MEDS: AZELASTINE 137MCG NASAL SPY 30 ML (ASTELIN) (09:00)
[2017-06-12] MEDS: guaiFENesin ER 600 MG TAB PO ×2 (09:00→21:00)
[2017-06-12] MEDS: BENZONATATE 100 MG CAP PO ×3 (09:00→21:00)
[2017-06-12] MEDS: POLYVINYL ALCOHOL OPHTH SOLN 15 ML(LIQUITEARS) OU ×4 (09:00→21:00)
[2017-06-12] MEDS: valACYclovir HCL 500 MG TAB PO ×2 (09:28→21:00)
[2017-06-12] MEDS: TORSEMIDE 20 MG TAB PO ×2 (09:29→21:00)
[2017-06-12] MEDS: MULTIVITAMINS/MINERALS THERAP 1 TAB PO (09:29)
[2017-06-12] MEDS: SENOKOT S TAB PO ×2 (09:29→21:00)
[2017-06-12] MEDS: ACETAMINOPHEN TAB 650MG DOSE (2X325MG) PO (11:52)
[2017-06-12] MEDS: LORazepam 0.5 MG TAB PO (16:16)
[2017-06-12] MEDS: MORPHINE 10MG/0.5ML ORAL CONCENTRATE SOLUTION U/D SL (17:45)
[2017-06-12] MEDS: RAMELTEON 8 MG TAB (ROZEREM) PO (21:00)
[2017-06-12] MEDS: **NOTE PATIENT COMMENT** MISC XX (21:00)
[2017-06-13] MEDS: MORPHINE 10MG/0.5ML ORAL CONCENTRATE SOLUTION U/D SL (00:13)
[2017-06-13] MEDS: ACETAMINOPHEN TAB 650MG DOSE (2X325MG) PO ×2 (06:14→18:02)
[2017-06-13] MEDS: LORazepam 0.5 MG TAB PO ×2 (06:14→23:39)
[2017-06-13] MEDS: POLYVINYL ALCOHOL OPHTH SOLN 15 ML(LIQUITEARS) OU ×4 (09:00→21:28)
[2017-06-13] MEDS: MULTIVITAMINS/MINERALS THERAP 1 TAB PO (09:00)
[2017-06-13] MEDS: SENOKOT S TAB PO ×2 (09:00→21:27)
[2017-06-13] MEDS: valACYclovir HCL 500 MG TAB PO ×2 (09:00→21:27)
[2017-06-13] MEDS: BENZONATATE 100 MG CAP PO ×3 (09:00→21:00)
[2017-06-13] MEDS: AZELASTINE 137MCG NASAL SPY 30 ML (ASTELIN) (09:00)
[2017-06-13] MEDS: TORSEMIDE 20 MG TAB PO ×2 (09:48→21:26)
[2017-06-13] MEDS: guaiFENesin ER 600 MG TAB PO ×2 (09:48→21:00)
[2017-06-13] MEDS: **NOTE PATIENT COMMENT** MISC XX (21:00)
[2017-06-13] MEDS: RAMELTEON 8 MG TAB (ROZEREM) PO (21:26)
[2017-06-14] MEDS: guaiFENesin ER 600 MG TAB PO ×2 (09:00→20:18)
[2017-06-14] MEDS: TORSEMIDE 20 MG TAB PO ×2 (09:00→20:18)
[2017-06-14] MEDS: valACYclovir HCL 500 MG TAB PO ×2 (09:00→20:18)
[2017-06-14] MEDS: POLYVINYL ALCOHOL OPHTH SOLN 15 ML(LIQUITEARS) OU ×4 (09:00→20:19)
[2017-06-14] MEDS: SENOKOT S TAB PO ×2 (09:00→20:18)
[2017-06-14] MEDS: MULTIVITAMINS/MINERALS THERAP 1 TAB PO (09:00)
[2017-06-14] MEDS: BENZONATATE 100 MG CAP PO ×3 (09:00→20:19)
[2017-06-14] MEDS: AZELASTINE 137MCG NASAL SPY 30 ML (ASTELIN) (09:00)
[2017-06-14] MEDS: ACETAMINOPHEN TAB 650MG DOSE (2X325MG) PO ×2 (10:20→20:16)
[2017-06-14] MEDS: LORazepam 0.5 MG TAB PO ×2 (17:03→22:07)
[2017-06-14] MEDS: RAMELTEON 8 MG TAB (ROZEREM) PO (20:18)
[2017-06-14] MEDS: **NOTE PATIENT COMMENT** MISC XX (20:19)
[2017-06-15] MEDS: ACETAMINOPH W/CODEINE #3 TAB UD PO (04:17)
[2017-06-15] MEDS: SENOKOT S TAB PO ×2 (08:42→21:58)
[2017-06-15] MEDS: guaiFENesin ER 600 MG TAB PO ×2 (08:43→21:00)
[2017-06-15] MEDS: BENZONATATE 100 MG CAP PO ×3 (08:43→21:00)
[2017-06-15] MEDS: valACYclovir HCL 500 MG TAB PO ×2 (08:43→21:58)
[2017-06-15] MEDS: TORSEMIDE 20 MG TAB PO ×2 (08:43→21:59)
[2017-06-15] MEDS: MULTIVITAMINS/MINERALS THERAP 1 TAB PO (08:43)
[2017-06-15] MEDS: POLYVINYL ALCOHOL OPHTH SOLN 15 ML(LIQUITEARS) OU ×4 (08:44→21:59)
[2017-06-15] MEDS: AZELASTINE 137MCG NASAL SPY 30 ML (ASTELIN) (08:44)
[2017-06-15] MEDS: ACETAMINOPHEN TAB 650MG DOSE (2X325MG) PO ×3 (12:01→23:17)
[2017-06-15] MEDS: **NOTE PATIENT COMMENT** MISC XX (21:00)
[2017-06-15] MEDS: RAMELTEON 8 MG TAB (ROZEREM) PO (21:58)
[2017-06-15] MEDS: LORazepam 0.5 MG TAB PO (23:16)
[2017-06-16] MEDS: BENZONATATE 100 MG CAP PO ×3 (09:00→21:00)
[2017-06-16] MEDS: guaiFENesin ER 600 MG TAB PO ×2 (09:00→21:00)
[2017-06-16] MEDS: TORSEMIDE 20 MG TAB PO ×2 (09:00→09:30)
[2017-06-16] MEDS: ACETAMINOPHEN TAB 650MG DOSE (2X325MG) PO ×2 (09:29→13:30)
[2017-06-16] MEDS: MULTIVITAMINS/MINERALS THERAP 1 TAB PO (09:30)
[2017-06-16] MEDS: SENOKOT S TAB PO ×2 (09:31→21:00)
[2017-06-16] MEDS: valACYclovir HCL 500 MG TAB PO ×2 (09:31→21:00)
[2017-06-16] MEDS: POLYVINYL ALCOHOL OPHTH SOLN 15 ML(LIQUITEARS) OU ×4 (09:31→21:00)
[2017-06-16] MEDS: AZELASTINE 137MCG NASAL SPY 30 ML (ASTELIN) (09:32)
[2017-06-16] MEDS: MOM 30ML SUSPENSION UDC PO (13:28)
[2017-06-16] MEDS: MORPHINE 10MG/0.5ML ORAL CONCENTRATE SOLUTION U/D SL (17:02)
[2017-06-16] MEDS: RAMELTEON 8 MG TAB (ROZEREM) PO (21:00)
[2017-06-16] MEDS: **NOTE PATIENT COMMENT** MISC XX (21:00)
[2017-06-17] MEDS: guaiFENesin ER 600 MG TAB PO ×2 (09:43→20:28)
[2017-06-17] MEDS: valACYclovir HCL 500 MG TAB PO ×2 (09:43→20:28)
[2017-06-17] MEDS: SENOKOT S TAB PO ×2 (09:43→20:28)
[2017-06-17] MEDS: MULTIVITAMINS/MINERALS THERAP 1 TAB PO (09:43)
[2017-06-17] MEDS: MOM 30ML SUSPENSION UDC PO (09:44)
[2017-06-17] MEDS: BENZONATATE 100 MG CAP PO ×3 (09:44→20:28)
[2017-06-17] MEDS: POLYVINYL ALCOHOL OPHTH SOLN 15 ML(LIQUITEARS) OU ×4 (09:45→20:28)
[2017-06-17] MEDS: AZELASTINE 137MCG NASAL SPY 30 ML (ASTELIN) (09:45)
[2017-06-17] MEDS: ACETAMINOPHEN TAB 650MG DOSE (2X325MG) PO ×2 (16:44→20:28)
[2017-06-17] MEDS: LORazepam 0.5 MG TAB PO (20:28)
[2017-06-17] MEDS: RAMELTEON 8 MG TAB (ROZEREM) PO (20:28)
[2017-06-17] MEDS: **NOTE PATIENT COMMENT** MISC XX (20:28)
[2017-06-18] MEDS: LORazepam 0.5 MG TAB PO (03:13)
[2017-06-18] MEDS: MORPHINE 10MG/0.5ML ORAL CONCENTRATE SOLUTION U/D SL ×2 (03:13→18:49)
[2017-06-18] MEDS: POLYVINYL ALCOHOL OPHTH SOLN 15 ML(LIQUITEARS) OU ×4 (09:00→20:48)
[2017-06-18] MEDS: guaiFENesin ER 600 MG TAB PO ×2 (09:00→20:45)
[2017-06-18] MEDS: SENOKOT S TAB PO ×2 (09:48→20:45)
[2017-06-18] MEDS: BENZONATATE 100 MG CAP PO ×3 (09:48→20:45)
[2017-06-18] MEDS: MULTIVITAMINS/MINERALS THERAP 1 TAB PO (09:48)
[2017-06-18] MEDS: AZELASTINE 137MCG NASAL SPY 30 ML (ASTELIN) (09:48)
[2017-06-18] MEDS: valACYclovir HCL 500 MG TAB PO ×2 (09:48→20:45)
[2017-06-18] MEDS: RAMELTEON 8 MG TAB (ROZEREM) PO (20:45)
[2017-06-18] MEDS: **NOTE PATIENT COMMENT** MISC XX (20:46)
[2017-06-19] MEDS: guaiFENesin ER 600 MG TAB PO (09:39)
[2017-06-19] MEDS: MOM 30ML SUSPENSION UDC PO (09:39)
[2017-06-19] MEDS: valACYclovir HCL 500 MG TAB PO (09:39)
[2017-06-19] MEDS: SENOKOT S TAB PO (09:39)
[2017-06-19] MEDS: POLYVINYL ALCOHOL OPHTH SOLN 15 ML(LIQUITEARS) OU (09:41)
[2017-06-19] MEDS: ACETAMINOPHEN TAB 650MG DOSE (2X325MG) PO (09:41)
[2017-06-19] MEDS: MULTIVITAMINS/MINERALS THERAP 1 TAB PO (09:41)
[2017-06-19] MEDS: BENZONATATE 100 MG CAP PO (09:41)
[2017-06-19] MEDS: AZELASTINE 137MCG NASAL SPY 30 ML (ASTELIN) (09:42)
== END 2017-06-19 11:19 | DRG 306 ==
LOC: M PCU 05-04 17:55 → M MS4PR 05-08 17:54 → M MSPAV 05-15 20:03 → M ED 12:27 → M MS4PR 05-08 19:35 → M ED INP 18:10
DX: I35.0 Nonrheumatic aortic (valve) stenosis (principal); I50.33 Acute on chronic diastolic (congestive) heart failure; G93.41 Metabolic encephalopathy; Z66 Do not resuscitate; Z51.5 Encounter for palliative care; I11.0 Hypertensive heart disease with heart failure; B02.9 Zoster without complications; R05 Cough; J02.9 Acute pharyngitis, unspecified; R09.02 Hypoxemia; I48.91 Unspecified atrial fibrillation; E78.5 Hyperlipidemia, unspecified; M19.90 Unspecified osteoarthritis, unspecified site; Z88.5 Allergy status to narcotic agent; Z91.030 Bee allergy status; Z79.01 Long term (current) use of anticoagulants; Z79.899 Other long term (current) drug therapy; Z90.710 Acquired absence of both cervix and uterus

== ENCOUNTER 2017-06-21 00:17 | Emergency (ER) | payer MEDICARE, OTHER ==
[2017-06-21 01:51] LABS: BASO # 0.1 10^3/uL (0.0-0.2); BASO % 0.7 % (0.0-1.0); EOS # 0.2 10^3/uL (0.0-0.50); EOS % 2.5 % (0.0-3.0); HEMATOCRIT 44.8 % (36.0-47.0); HEMOGLOBIN 15.2 g/dl (12.0-16.0); IMMATURE GRANULOCYTE % 0.4 % (0-3.0); LYMPH # 1.9 10^3/uL (1.5-4.5); LYMPH % 25.5 % (24.0-44.0); MEAN CORPUSCULAR HEMOGLOBIN 30.3 pg (27.0-33.0); MEAN CORPUSCULAR HGB CONC 33.9 g/dl (32.0-36.5); MEAN CORPUSCULAR VOLUME 89.4 fl (80.0-96.0); MONO # 0.6 10^3/uL (0.0-0.8); MONO % 8.2 % (0.0-5.0); NEUTROPHILS # 4.7 10^3/uL (1.8-7.7); NEUTROPHILS % 62.7 % (36.0-66.0); PLATELET COUNT, AUTOMATED 171 10^3/uL (150-450); RED BLOOD COUNT 5.01 10^6/uL (4.00-5.40); RED CELL DISTRIBUTION WIDTH 16.4 % (11.5-14.5); WHITE BLOOD COUNT 7.5 10^3/uL (4.0-10.0)
[2017-06-21 02:01] LABS: PARTIAL THROMBOPLASTIN TIME 27.5 SECONDS (26.8-37.9); PROTHROMBIN TIME 15.4 SECONDS (12.4-14.5)
[2017-06-21 02:08] LABS: KETONE, URINE AUTO RFX NEGATIVE (NEGATIVE); LEUKOCYTE ESTERASE UR AUTO RFX NEGATIVE (NEGATIVE); NITRITE, URINE AUTO RFX NEGATIVE (NEGATIVE); RBC, URINE AUTO RFX 1 /HPF (0-3); SPECIFIC GRAVITY UR AUTO RFX 1.024 (1.002-1.035); SQUAM EPITHELIAL CELL UR AURFX 0 /HPF (0-6); WBC, URINE AUTO RFX 1 /HPF (0-3)
[2017-06-21 02:15] LABS: ALBUMIN 2.8 GM/DL (3.2-5.2); ALBUMIN/GLOBULIN RATIO 0.68 (1.00-1.93); ALKALINE PHOSPHATASE 111 U/L (45-117); ALT/SGPT 19 U/L (12-78); ANION GAP 7 MEQ/L (8-16); AST/SGOT 35 U/L (7-37); BILIRUBIN,DIRECT 0.9 MG/DL (0.0-0.2); BLOOD UREA NITROGEN 24 MG/DL (7-18); CALCIUM LEVEL 9.1 MG/DL (8.8-10.2); CARBON DIOXIDE LEVEL 35 MEQ/L (21-32); CHLORIDE LEVEL 98 MEQ/L (98-107); CPK CREATINE PHOSPHOKINASE 51 U/L (26-192); CREATININE FOR GFR 1.27 MG/DL (0.55-1.30); GLOMERULAR FILTRATION RATE 42.3 (>32); GLUCOSE, FASTING 123 MG/DL (70-100); LIPASE 85 U/L (73-393); MB/CK RELATIVE INDEX 3.92 (< OR =4); POTASSIUM SERUM 3.8 MEQ/L (3.5-5.1); SODIUM LEVEL 140 MEQ/L (136-145); TOTAL PROTEIN 6.9 GM/DL (6.4-8.2); TROPONIN I 0.12 NG/ML (< 0.10)
[2017-06-21 03:01] LABS: VENOUS BASE EXCESS 6.9 (-2.0-2.0); VENOUS HCO3 31.3 MEQ/L (23.0-27.0); VENOUS O2 SATURATION 81.7 % (60.0-80.0); VENOUS PARTIAL PRESSURE CO2 43.2 mmHg (38.0-50.0); VENOUS PARTIAL PRESSURE O2 44.9 mmHg (30.0-50.0); VENOUS PH 7.478 UNITS (7.330-7.430); VENOUS STANDARD HCO3 30.4 MEQ/L; VENOUS TOTAL CO2 32.6 MEQ/L (24.0-28.0)
== END 2017-06-21 03:51 | disposition home or self-care (01) ==
LOC: M ED 00:17
DX: S00.03XA Contusion of scalp, initial encounter (principal); W05.0XXA Fall from non-moving wheelchair, initial encounter; Y92.129 Unspecified place in nursing home as the place of occurrence of the external cause; I25.10 Atherosclerotic heart disease of native coronary artery without angina pectoris; I48.91 Unspecified atrial fibrillation; F03.90 Unspecified dementia, unspecified severity, without behavioral disturbance, psychotic disturbance, mood disturbance, and anxiety; Z79.899 Other long term (current) drug therapy; Z88.5 Allergy status to narcotic agent; Z91.030 Bee allergy status
CPT/HCPCS: 70450

== ENCOUNTER → 2017-07-13 | Outpatient (REF) | payer MEDICARE, OTHER, MEDICAID ==
[2017-07-13 09:18] LABS: ANION GAP 9 MEQ/L (8-16); BLOOD UREA NITROGEN 15 MG/DL (7-18); CALCIUM LEVEL 8.7 MG/DL (8.8-10.2); CARBON DIOXIDE LEVEL 28 MEQ/L (21-32); CHLORIDE LEVEL 105 MEQ/L (98-107); CREATININE FOR GFR 0.89 MG/DL (0.55-1.30); GLOMERULAR FILTRATION RATE > 60.0 (>32); GLUCOSE, FASTING 89 MG/DL (70-100); POTASSIUM SERUM 3.7 MEQ/L (3.5-5.1); SODIUM LEVEL 142 MEQ/L (136-145)
== END ==
LOC: SKLAB6 07:00
DX: R60.9 Edema, unspecified (principal); I50.9 Heart failure, unspecified
CPT/HCPCS: 36415

== ENCOUNTER → 2017-07-16 | Outpatient (REF) | payer MEDICARE, OTHER, MEDICAID ==
[2017-07-16 10:53] LABS: ANION GAP 5 MEQ/L (8-16); BLOOD UREA NITROGEN 19 MG/DL (7-18); CALCIUM LEVEL 8.9 MG/DL (8.8-10.2); CARBON DIOXIDE LEVEL 31 MEQ/L (21-32); CHLORIDE LEVEL 109 MEQ/L (98-107); CREATININE FOR GFR 0.99 MG/DL (0.55-1.30); GLOMERULAR FILTRATION RATE 56.4 (>32); GLUCOSE, FASTING 96 MG/DL (70-100); POTASSIUM SERUM 3.9 MEQ/L (3.5-5.1); SODIUM LEVEL 145 MEQ/L (136-145)
== END ==
LOC: SKLAB6 07:00
DX: R60.9 Edema, unspecified (principal); I50.9 Heart failure, unspecified
CPT/HCPCS: 36415

== ENCOUNTER → 2017-08-02 | Outpatient (REF) | payer MEDICARE, OTHER, MEDICAID ==
[2017-08-02 09:38] LABS: ANION GAP 8 MEQ/L (8-16); BLOOD UREA NITROGEN 21 MG/DL (7-18); CALCIUM LEVEL 8.8 MG/DL (8.8-10.2); CARBON DIOXIDE LEVEL 28 MEQ/L (21-32); CHLORIDE LEVEL 104 MEQ/L (98-107); CREATININE FOR GFR 1.24 MG/DL (0.55-1.30); GLOMERULAR FILTRATION RATE 43.5 (>32); GLUCOSE, FASTING 167 MG/DL (70-100); POTASSIUM SERUM 3.8 MEQ/L (3.5-5.1); SODIUM LEVEL 140 MEQ/L (136-145)
== END ==
LOC: SKLAB6 08:00
DX: I50.9 Heart failure, unspecified (principal); R60.9 Edema, unspecified
CPT/HCPCS: 36415

== ENCOUNTER → 2017-08-09 | Outpatient (REF) | payer MEDICARE, OTHER ==
[2017-08-09 12:04] LABS: ANION GAP 6 MEQ/L (8-16); BLOOD UREA NITROGEN 23 MG/DL (7-18); CALCIUM LEVEL 9.1 MG/DL (8.8-10.2); CARBON DIOXIDE LEVEL 31 MEQ/L (21-32); CHLORIDE LEVEL 104 MEQ/L (98-107); CREATININE FOR GFR 1.23 MG/DL (0.55-1.30); GLOMERULAR FILTRATION RATE 43.9 (>32); GLUCOSE, FASTING 120 MG/DL (70-100); POTASSIUM SERUM 4.1 MEQ/L (3.5-5.1); SODIUM LEVEL 141 MEQ/L (136-145)
== END ==
LOC: SKLAB6 07:00
DX: I50.9 Heart failure, unspecified (principal); R60.9 Edema, unspecified
CPT/HCPCS: 36415

== ENCOUNTER → 2017-08-16 | Outpatient (REF) | payer MEDICARE, OTHER ==
[2017-08-16 09:42] LABS: ANION GAP 7 MEQ/L (8-16); BLOOD UREA NITROGEN 22 MG/DL (7-18); CALCIUM LEVEL 8.6 MG/DL (8.8-10.2); CARBON DIOXIDE LEVEL 30 MEQ/L (21-32); CHLORIDE LEVEL 105 MEQ/L (98-107); CREATININE FOR GFR 1.19 MG/DL (0.55-1.30); GLOMERULAR FILTRATION RATE 45.6 (>32); GLUCOSE, FASTING 147 MG/DL (70-100); POTASSIUM SERUM 3.8 MEQ/L (3.5-5.1); SODIUM LEVEL 142 MEQ/L (136-145)
== END ==
LOC: SKLAB6 07:00
DX: R60.9 Edema, unspecified (principal)
CPT/HCPCS: 80048

== ENCOUNTER → 2017-09-03 | Outpatient (REF) | payer MEDICARE, OTHER ==
[2017-09-03 16:06] LABS: HEMATOCRIT 41.9 % (36.0-47.0); MEAN CORPUSCULAR HEMOGLOBIN 30.8 pg (27.0-33.0); MEAN CORPUSCULAR HGB CONC 33.4 g/dl (32.0-36.5); MEAN CORPUSCULAR VOLUME 92.3 fl (80.0-96.0); PLATELET COUNT, AUTOMATED 166 10^3/uL (150-450); RED BLOOD COUNT 4.54 10^6/uL (4.00-5.40); RED CELL DISTRIBUTION WIDTH 12.7 % (11.5-14.5); WHITE BLOOD COUNT 5.9 10^3/uL (4.0-10.0)
[2017-09-03 16:37] LABS: ANION GAP 8 MEQ/L (8-16); CALCIUM LEVEL 8.6 MG/DL (8.8-10.2); CARBON DIOXIDE LEVEL 30 MEQ/L (21-32); CHLORIDE LEVEL 103 MEQ/L (98-107); CPK CREATINE PHOSPHOKINASE 35 U/L (26-192); CREATININE FOR GFR 1.27 MG/DL (0.55-1.30); GLOMERULAR FILTRATION RATE 42.3 (>32); GLUCOSE, FASTING 95 MG/DL (70-100); SODIUM LEVEL 141 MEQ/L (136-145); TROPONIN I 0.07 NG/ML (< 0.10)
[2017-09-03 16:39] LABS: BLOOD UREA NITROGEN 19 MG/DL (7-18); CK-MB VALUE MASS 1.4 NG/ML (<3.6)
== END ==
LOC: SKLAB6 15:00
DX: R07.9 Chest pain, unspecified (principal); I50.9 Heart failure, unspecified; I51.7 Cardiomegaly; J90 Pleural effusion, not elsewhere classified
CPT/HCPCS: 71045

== ENCOUNTER → 2017-09-04 | Outpatient (REF) | payer MEDICARE, OTHER ==
[2017-09-04 08:26] LABS: ANION GAP 6 MEQ/L (8-16); BLOOD UREA NITROGEN 19 MG/DL (7-18); CALCIUM LEVEL 8.8 MG/DL (8.8-10.2); CARBON DIOXIDE LEVEL 28 MEQ/L (21-32); CHLORIDE LEVEL 103 MEQ/L (98-107); CREATININE FOR GFR 1.19 MG/DL (0.55-1.30); GLOMERULAR FILTRATION RATE 45.6 (>32); GLUCOSE, FASTING 122 MG/DL (70-100); POTASSIUM SERUM 3.8 MEQ/L (3.5-5.1); SODIUM LEVEL 137 MEQ/L (136-145)
== END ==
LOC: SKLAB6 07:00
DX: R07.9 Chest pain, unspecified (principal)
CPT/HCPCS: 36415

== ENCOUNTER → 2017-09-04 | Outpatient (REF) | payer MEDICARE, OTHER | LOC: SKLAB6 00:15 | DX: R39.89 Other symptoms and signs involving the genitourinary system (principal) ==

== ENCOUNTER → 2017-09-13 | Outpatient (REF) | payer MEDICARE, OTHER ==
[2017-09-13 11:10] LABS: ANION GAP 7 MEQ/L (8-16); BLOOD UREA NITROGEN 23 MG/DL (7-18); CALCIUM LEVEL 8.8 MG/DL (8.8-10.2); CARBON DIOXIDE LEVEL 30 MEQ/L (21-32); CHLORIDE LEVEL 102 MEQ/L (98-107); CREATININE FOR GFR 1.22 MG/DL (0.55-1.30); GLOMERULAR FILTRATION RATE 44.3 (>32); GLUCOSE, FASTING 115 MG/DL (70-100); POTASSIUM SERUM 3.8 MEQ/L (3.5-5.1); SODIUM LEVEL 139 MEQ/L (136-145)
== END ==
LOC: SKLAB6 07:00
DX: R07.89 Other chest pain (principal)
CPT/HCPCS: 36415

== ENCOUNTER → 2017-09-26 | Outpatient (REF) | payer MEDICARE, OTHER | LOC: M RAD 16:10 | DX: R05 Cough (principal); I51.7 Cardiomegaly; J98.11 Atelectasis | CPT/HCPCS: 71045 ==

== ENCOUNTER → 2017-09-29 | Outpatient (REF) | payer MEDICARE, OTHER ==
[2017-09-29 10:23] LABS: ANION GAP 6 MEQ/L (8-16); BLOOD UREA NITROGEN 23 MG/DL (7-18); CALCIUM LEVEL 8.7 MG/DL (8.8-10.2); CARBON DIOXIDE LEVEL 29 MEQ/L (21-32); CHLORIDE LEVEL 101 MEQ/L (98-107); CREATININE FOR GFR 1.15 MG/DL (0.55-1.30); GLOMERULAR FILTRATION RATE 47.4 (>32); GLUCOSE, FASTING 158 MG/DL (70-100); POTASSIUM SERUM 3.5 MEQ/L (3.5-5.1); SODIUM LEVEL 136 MEQ/L (136-145)
== END ==
LOC: SKLAB6 07:00
DX: I50.9 Heart failure, unspecified (principal)
CPT/HCPCS: 80048

== ENCOUNTER → 2017-10-04 | Outpatient (REF) | payer MEDICARE, OTHER ==
[2017-10-04 08:22] LABS: ANION GAP 7 MEQ/L (8-16); BLOOD UREA NITROGEN 21 MG/DL (7-18); CALCIUM LEVEL 8.7 MG/DL (8.8-10.2); CARBON DIOXIDE LEVEL 29 MEQ/L (21-32); CHLORIDE LEVEL 101 MEQ/L (98-107); CREATININE FOR GFR 1.16 MG/DL (0.55-1.30); GLOMERULAR FILTRATION RATE 46.9 (>32); GLUCOSE, FASTING 98 MG/DL (70-100); POTASSIUM SERUM 3.9 MEQ/L (3.5-5.1); SODIUM LEVEL 137 MEQ/L (136-145)
== END ==
LOC: SKLAB6 07:00
DX: I48.91 Unspecified atrial fibrillation (principal); I10 Essential (primary) hypertension
CPT/HCPCS: 36415

== ENCOUNTER → 2017-10-27 | Outpatient (REF) | payer MEDICARE, OTHER | LOC: SKLAB6 06:54 | DX: R05 Cough (principal); R09.81 Nasal congestion | CPT/HCPCS: 71045 ==

== ENCOUNTER → 2017-11-15 | Outpatient (REF) | payer MEDICARE, OTHER ==
[2017-11-15 08:53] LABS: ANION GAP 9 MEQ/L (8-16); BLOOD UREA NITROGEN 28 MG/DL (7-18); CALCIUM LEVEL 8.4 MG/DL (8.8-10.2); CARBON DIOXIDE LEVEL 28 MEQ/L (21-32); CHLORIDE LEVEL 102 MEQ/L (98-107); CREATININE FOR GFR 1.18 MG/DL (0.55-1.30); GLUCOSE, FASTING 86 MG/DL (70-100); POTASSIUM SERUM 4.3 MEQ/L (3.5-5.1); SODIUM LEVEL 139 MEQ/L (136-145)
== END ==
LOC: SKLAB6 07:00
DX: R60.9 Edema, unspecified (principal)
CPT/HCPCS: 36415

== ENCOUNTER → 2017-11-29 | Outpatient (REF) | payer MEDICARE, OTHER ==
[2017-11-29 09:34] LABS: ANION GAP 10 MEQ/L (8-16); BLOOD UREA NITROGEN 24 MG/DL (7-18); CALCIUM LEVEL 8.7 MG/DL (8.8-10.2); CARBON DIOXIDE LEVEL 29 MEQ/L (21-32); CHLORIDE LEVEL 99 MEQ/L (98-107); CREATININE FOR GFR 1.18 MG/DL (0.55-1.30); GLUCOSE, FASTING 112 MG/DL (70-100); POTASSIUM SERUM 4.1 MEQ/L (3.5-5.1); SODIUM LEVEL 138 MEQ/L (136-145)
== END ==
LOC: SKLAB6 07:00
DX: R60.9 Edema, unspecified (principal)
CPT/HCPCS: 36415

== ENCOUNTER → 2017-12-14 | Outpatient (REF) | payer MEDICARE, OTHER ==
[2017-12-14 12:53] LABS: ANION GAP 10 MEQ/L (8-16); BLOOD UREA NITROGEN 25 MG/DL (7-18); CALCIUM LEVEL 8.6 MG/DL (8.8-10.2); CARBON DIOXIDE LEVEL 26 MEQ/L (21-32); CHLORIDE LEVEL 102 MEQ/L (98-107); CREATININE FOR GFR 1.21 MG/DL (0.55-1.30); GLOMERULAR FILTRATION RATE 44.7 (>32); GLUCOSE, FASTING 139 MG/DL (70-100); POTASSIUM SERUM 4.1 MEQ/L (3.5-5.1); SODIUM LEVEL 138 MEQ/L (136-145)
== END ==
LOC: SKLAB6 08:00
DX: I50.9 Heart failure, unspecified (principal); I11.0 Hypertensive heart disease with heart failure
CPT/HCPCS: 80048

== ENCOUNTER → 2017-12-27 | Outpatient (REF) | payer MEDICARE ==
[2017-12-27 11:53] LABS: ANION GAP 9 MEQ/L (8-16); BLOOD UREA NITROGEN 27 MG/DL (7-18); CALCIUM LEVEL 8.5 MG/DL (8.8-10.2); CARBON DIOXIDE LEVEL 30 MEQ/L (21-32); CHLORIDE LEVEL 101 MEQ/L (98-107); CREATININE FOR GFR 1.36 MG/DL (0.55-1.30); GLOMERULAR FILTRATION RATE 39.1 (>32); GLUCOSE, FASTING 119 MG/DL (70-100); POTASSIUM SERUM 4.1 MEQ/L (3.5-5.1); SODIUM LEVEL 140 MEQ/L (136-145)
== END ==
LOC: SKLAB6 07:00
DX: I50.9 Heart failure, unspecified (principal); F03.90 Unspecified dementia, unspecified severity, without behavioral disturbance, psychotic disturbance, mood disturbance, and anxiety
CPT/HCPCS: 36415

== ENCOUNTER → 2018-01-10 | Outpatient (REF) | payer MEDICARE, OTHER ==
[2018-01-10 09:07] LABS: ANION GAP 8 MEQ/L (8-16); BLOOD UREA NITROGEN 29 MG/DL (7-18); CALCIUM LEVEL 8.9 MG/DL (8.8-10.2); CARBON DIOXIDE LEVEL 30 MEQ/L (21-32); CHLORIDE LEVEL 102 MEQ/L (98-107); CREATININE FOR GFR 1.31 MG/DL (0.55-1.30); GLOMERULAR FILTRATION RATE 40.7 (>32); GLUCOSE, FASTING 112 MG/DL (70-100); SODIUM LEVEL 140 MEQ/L (136-145)
== END ==
LOC: SKLAB6 08:00
DX: I50.9 Heart failure, unspecified (principal)
CPT/HCPCS: 36415

== ENCOUNTER → 2018-01-24 | Outpatient (REF) | payer MEDICARE ==
[2018-01-24 09:45] LABS: ANION GAP 9 MEQ/L (8-16); BLOOD UREA NITROGEN 27 MG/DL (7-18); CARBON DIOXIDE LEVEL 30 MEQ/L (21-32); CHLORIDE LEVEL 98 MEQ/L (98-107); CREATININE FOR GFR 1.32 MG/DL (0.55-1.30); GLOMERULAR FILTRATION RATE 40.3 (>32); GLUCOSE, FASTING 144 MG/DL (70-100); POTASSIUM SERUM 3.8 MEQ/L (3.5-5.1); SODIUM LEVEL 137 MEQ/L (136-145)
== END ==
LOC: SKLAB6 07:00
DX: I50.9 Heart failure, unspecified (principal); F03.90 Unspecified dementia, unspecified severity, without behavioral disturbance, psychotic disturbance, mood disturbance, and anxiety
CPT/HCPCS: 36415

== ENCOUNTER → 2018-02-07 | Outpatient (REF) | payer MEDICARE ==
[2018-02-07 09:12] LABS: ANION GAP 7 MEQ/L (8-16); BLOOD UREA NITROGEN 29 MG/DL (7-18); CALCIUM LEVEL 8.9 MG/DL (8.8-10.2); CARBON DIOXIDE LEVEL 30 MEQ/L (21-32); CHLORIDE LEVEL 101 MEQ/L (98-107); CREATININE FOR GFR 1.41 MG/DL (0.55-1.30); GLOMERULAR FILTRATION RATE 37.4 (>32); GLUCOSE, FASTING 127 MG/DL (70-100); POTASSIUM SERUM 4.1 MEQ/L (3.5-5.1); SODIUM LEVEL 138 MEQ/L (136-145)
== END ==
LOC: SKLAB6 07:00
DX: I50.9 Heart failure, unspecified (principal)
CPT/HCPCS: 80048

== ENCOUNTER → 2018-02-22 | Outpatient (REF) | payer MEDICARE ==
[2018-02-22 11:32] LABS: ANION GAP 11 MEQ/L (8-16); BLOOD UREA NITROGEN 25 MG/DL (7-18); CALCIUM LEVEL 8.9 MG/DL (8.8-10.2); CARBON DIOXIDE LEVEL 28 MEQ/L (21-32); CHLORIDE LEVEL 98 MEQ/L (98-107); CREATININE FOR GFR 1.32 MG/DL (0.55-1.30); GLOMERULAR FILTRATION RATE 40.3 (>32); GLUCOSE, FASTING 124 MG/DL (70-100); POTASSIUM SERUM 3.9 MEQ/L (3.5-5.1); SODIUM LEVEL 137 MEQ/L (136-145)
== END ==
LOC: SKLAB6 07:00
DX: I50.9 Heart failure, unspecified (principal)
CPT/HCPCS: 80048

== ENCOUNTER → 2018-03-07 | Outpatient (REF) | payer MEDICARE ==
[2018-03-07 10:00] LABS: ANION GAP 6 MEQ/L (8-16); BLOOD UREA NITROGEN 26 MG/DL (7-18); CALCIUM LEVEL 9.2 MG/DL (8.8-10.2); CARBON DIOXIDE LEVEL 31 MEQ/L (21-32); CHLORIDE LEVEL 98 MEQ/L (98-107); CREATININE FOR GFR 1.29 MG/DL (0.55-1.30); GLOMERULAR FILTRATION RATE 41.4 (>32); GLUCOSE, FASTING 108 MG/DL (70-100); POTASSIUM SERUM 3.8 MEQ/L (3.5-5.1); SODIUM LEVEL 135 MEQ/L (136-145)
== END ==
LOC: SKLAB6 07:00
DX: D64.9 Anemia, unspecified (principal)
CPT/HCPCS: 80048

== ENCOUNTER → 2018-03-21 | Outpatient (REF) | payer MEDICARE ==
[2018-03-21 08:11] LABS: ANION GAP 7 MEQ/L (8-16); BLOOD UREA NITROGEN 30 MG/DL (7-18); CALCIUM LEVEL 8.3 MG/DL (8.8-10.2); CARBON DIOXIDE LEVEL 30 MEQ/L (21-32); CHLORIDE LEVEL 103 MEQ/L (98-107); CREATININE FOR GFR 1.31 MG/DL (0.55-1.30); GLOMERULAR FILTRATION RATE 40.7 (>32); GLUCOSE, FASTING 94 MG/DL (70-100); POTASSIUM SERUM 3.8 MEQ/L (3.5-5.1); SODIUM LEVEL 140 MEQ/L (136-145)
== END ==
LOC: SKLAB6 07:00
DX: R60.9 Edema, unspecified (principal)
CPT/HCPCS: 80048

== ENCOUNTER → 2018-04-04 | Outpatient (REF) | payer MEDICARE ==
[2018-04-04 10:34] LABS: ANION GAP 5 MEQ/L (8-16); BLOOD UREA NITROGEN 33 MG/DL (7-18); CALCIUM LEVEL 8.8 MG/DL (8.8-10.2); CARBON DIOXIDE LEVEL 31 MEQ/L (21-32); CHLORIDE LEVEL 102 MEQ/L (98-107); CREATININE FOR GFR 1.33 MG/DL (0.55-1.30); GLUCOSE, FASTING 92 MG/DL (70-100); POTASSIUM SERUM 3.9 MEQ/L (3.5-5.1); SODIUM LEVEL 138 MEQ/L (136-145)
== END ==
LOC: SKLAB6 07:00
DX: R60.9 Edema, unspecified (principal)
CPT/HCPCS: 80048

== ENCOUNTER → 2018-04-18 | Outpatient (REF) | payer MEDICARE ==
[~2018-04-18] MED LIST changes: +ACET30TAB PO; +ALBU83IN INH; +AMOX875T PO; +ATIV1TAB10 PO; +Acetaminophen Tab PO; +Artificial Tears OU; +BENZ-18 PO; +BENZ200C70 PO; +CEFD1CAP8 PO; +DEXTROMETHORPHAN PO; +DIPH12.5 PO; +GRX1OIN TOP; +GUAIFENESIN PO; +IPRA0.00 NEB; +KLOR10TA76 PO; +KLOR20TA42 PO; +LIDO5DIS41 TD; +LIDO5TD TD; +LORA-243 PO; +MILK12002 PO; +MORP20SO3 SL; +MUCI600T37; +MUCI600T37 PO; +NYST50SS SS; -POTA10CA PO; -POTA20TA PO; +ROZE8TAB16 PO; +SCOP1DIS TOP; +SENN1TAB2 PO; +SPIR-10 PO; -SPIR25TA2 PO; +TORS20TA2 PO; +TYLE325T5 PO; -VITA1CAP40 PO; +VITA50005 PO; +ZOFR4TAB14 PO; -ZYVO100T PO; +ZYVO1TAB PO
[2018-04-18 09:30] LABS: CALCIUM LEVEL 8.6 MG/DL (8.8-10.2); CREATININE FOR GFR 1.55 MG/DL (0.55-1.30); GLOMERULAR FILTRATION RATE 33.5 (>32); POTASSIUM SERUM 4.3 MEQ/L (3.5-5.1)
== END ==
LOC: SKLAB6 07:00
PROVIDERS: ATTEND Family Medicine
DX: R53.81 Other malaise (principal)

== ENCOUNTER → 2018-04-19 | Outpatient (REF) | payer MEDICARE ==
[2018-04-19 15:35] LABS: INFLUENZA A AMPLIFICATION NEGATIVE (NEGATIVE); INFLUENZA B AMPLIFICATION NEGATIVE (NEGATIVE)
== END ==
LOC: SKLAB6 14:42
PROVIDERS: ATTEND Family Medicine
DX: R11.10 Vomiting, unspecified (principal); R53.81 Other malaise

== ENCOUNTER → 2018-04-20 | Outpatient (REF) | payer MEDICARE ==
[~2018-04-20] MED LIST changes: -LASI40TA PO; +LASI40TA9 PO; +MILK120011 PO; -MILK12002 PO
[2018-04-20 07:58] LABS: HEMATOCRIT 49.8 % (36.0-47.0); HEMOGLOBIN 16.6 g/dl (12.0-15.5); MEAN CORPUSCULAR HEMOGLOBIN 31.3 pg (27.0-33.0); MEAN CORPUSCULAR HGB CONC 33.3 g/dl (32.0-36.5); PLATELET COUNT, AUTOMATED 171 10^3/uL (150-450); WHITE BLOOD COUNT 6.7 10^3/uL (4.0-10.0)
[2018-04-20 08:32] LABS: CALCIUM LEVEL 8.5 MG/DL (8.8-10.2); CREATININE FOR GFR 1.56 MG/DL (0.55-1.30); GLOMERULAR FILTRATION RATE 33.3 (>32); POTASSIUM SERUM 4.2 MEQ/L (3.5-5.1)
== END ==
LOC: SKLAB6 04-19 07:00
PROVIDERS: ATTEND Family Medicine
DX: R53.81 Other malaise (principal); R11.10 Vomiting, unspecified

== ENCOUNTER → 2018-04-22 | Outpatient (REF) | payer MEDICARE ==
[~2018-04-22] MED LIST changes: +LASI40TA PO; -LASI40TA9 PO; -MILK120011 PO; +MILK12002 PO
[2018-04-22 19:30] LABS: INFLUENZA A AMPLIFICATION NEGATIVE (NEGATIVE); INFLUENZA B AMPLIFICATION NEGATIVE (NEGATIVE)
== END ==
LOC: SKLAB6 18:42
PROVIDERS: ATTEND Family Medicine
DX: R11.10 Vomiting, unspecified (principal); R53.81 Other malaise

== ENCOUNTER → 2018-04-29 | Outpatient (REF) | payer MEDICARE ==
[~2018-04-29] MED LIST changes: -LASI40TA PO; +LASI40TA9 PO; +MILK120011 PO; -MILK12002 PO
[2018-04-29 11:36] LABS: HEMATOCRIT 45.4 % (36.0-47.0); MEAN CORPUSCULAR HEMOGLOBIN 31.1 pg (27.0-33.0); PLATELET COUNT, AUTOMATED 126 10^3/uL (150-450); RED BLOOD COUNT 4.83 10^6/uL (4.00-5.40); WHITE BLOOD COUNT 5.8 10^3/uL (4.0-10.0)
[2018-04-29 11:36] LABS: APPEARANCE, URINE CLEAR (CLEAR); BACTERIA, URINE AUTO 1+ (NEGATIVE); BILIRUBIN, URINE AUTO NEGATIVE (NEGATIVE); BLOOD, URINE BLOOD NEGATIVE (NEGATIVE); COLOR, URINE YELLOW (YELLOW); GLUCOSE, URINE (UA) AUTO NEGATIVE (NEGATIVE); KETONE, URINE AUTO NEGATIVE (NEGATIVE); LEUKOCYTE ESTERASE, URINE AUTO NEGATIVE (NEGATIVE); MUCUS, URINE SMALL (NEGATIVE); NITRITE, URINE AUTO NEGATIVE (NEGATIVE); PROTEIN, URINE AUTO NEGATIVE (NEGATIVE); RBC, URINE AUTO 6 /HPF (0-3); SPECIFIC GRAVITY URINE AUTO 1.011 (1.002-1.035); SQUAMOUS EPITHELIAL CELL UR AU 2 /HPF (0-6); WBC, URINE AUTO 0 /HPF (0-3)
--- NOTE | 2018-04-29 11:48 | REP ---
CT Head without contrast HISTORY: Malaise COMPARISON: 06/21/2017 Areas of decreased attenuation are present in the periventricular and subcortical white matter. This represents small-vessel ischemic disease. There is no intraparenchymal hemorrhage, acute infarct, mass or midline shift. The ventricular system and cortical sulci as well as subarachnoid space in the posterior fossa are dilated consistent with moderate volume loss. There is no extra cerebral collection. There is no fracture. The visualized sinuses are clear. IMPRESSION: 1. Small vessel ischemic disease. 2. Moderate volume loss. Electronically Signed by Pete Sutherland MD 04/29/2018 11:40 A
[2018-04-29 12:28] LABS: CALCIUM LEVEL 8.4 MG/DL (8.8-10.2); CREATININE FOR GFR 1.48 MG/DL (0.55-1.30); GLOMERULAR FILTRATION RATE 35.4 (>32)
== END ==
LOC: SKLAB6 13:00
PROVIDERS: ATTEND Family Medicine
DX: R53.81 Other malaise (principal)

== ENCOUNTER → 2018-05-02 | Outpatient (REF) | payer MEDICARE ==
[2018-05-02 08:14] LABS: CALCIUM LEVEL 8.4 MG/DL (8.8-10.2); CREATININE FOR GFR 1.41 MG/DL (0.55-1.30); GLOMERULAR FILTRATION RATE 37.4 (>32); POTASSIUM SERUM 3.9 MEQ/L (3.5-5.1)
== END ==
LOC: SKLAB6 07:00
PROVIDERS: ATTEND Family Medicine
DX: I50.9 Heart failure, unspecified (principal); F03.90 Unspecified dementia, unspecified severity, without behavioral disturbance, psychotic disturbance, mood disturbance, and anxiety

== ENCOUNTER → 2018-05-03 | Outpatient (REF) | payer MEDICARE | LOC: SKLAB6 14:40 | PROVIDERS: ATTEND Family Medicine | DX: Z22.322 Carrier or suspected carrier of Methicillin resistant Staphylococcus aureus (principal) ==

== ENCOUNTER → 2018-05-09 | Outpatient (REF) | payer MEDICARE | LOC: SKLAB6 07:00 | PROVIDERS: ATTEND Family Medicine | DX: H57.9 Unspecified disorder of eye and adnexa (principal) ==

== ENCOUNTER → 2018-05-16 | Outpatient (REF) | payer MEDICARE ==
[2018-05-16 08:45] LABS: CALCIUM LEVEL 8.8 MG/DL (8.8-10.2); CREATININE FOR GFR 1.27 MG/DL (0.55-1.30); GLOMERULAR FILTRATION RATE 42.2 (>32); POTASSIUM SERUM 4.3 MEQ/L (3.5-5.1)
== END ==
LOC: SKLAB6 07:00
PROVIDERS: ATTEND Family Medicine
DX: I50.9 Heart failure, unspecified (principal); F03.90 Unspecified dementia, unspecified severity, without behavioral disturbance, psychotic disturbance, mood disturbance, and anxiety

== ENCOUNTER → 2018-06-13 | Outpatient (REF) | payer MEDICARE ==
[2018-06-13 09:41] LABS: CALCIUM LEVEL 8.6 MG/DL (8.8-10.2); CREATININE FOR GFR 1.15 MG/DL (0.55-1.30); GLOMERULAR FILTRATION RATE 47.3 (>32); POTASSIUM SERUM 4.1 MEQ/L (3.5-5.1)
== END ==
LOC: SKLAB6 07:00
PROVIDERS: ATTEND Family Medicine
DX: I50.9 Heart failure, unspecified (principal); F03.90 Unspecified dementia, unspecified severity, without behavioral disturbance, psychotic disturbance, mood disturbance, and anxiety

== ENCOUNTER → 2018-06-27 | Outpatient (REF) | payer MEDICARE ==
[~2018-06-27] MED LIST changes: +ACEP650S PR; +ACET1TAB55 PO; +ALB2.5NEB INH; +BISA10SU4 PR; +ENEMENE4 PR; +ENSULIQ64 PO; +LORA1TAB12 PO; +MORP20SOL PO; +MUCI600T31 PO; +NEOSOPO OS; +PEPC1TAB5 PO; +REFR0.5D8 OU; +SCOP1DIS TD; +SENN8.6T7 PO; +SIME80TA PO
[2018-06-27 10:39] LABS: CREATININE FOR GFR 1.31 MG/DL (0.55-1.30); GLOMERULAR FILTRATION RATE 40.7 (>32); POTASSIUM SERUM 3.7 MEQ/L (3.5-5.1)
== END ==
LOC: SKLAB6 07:00
PROVIDERS: ATTEND Family Medicine
DX: I48.91 Unspecified atrial fibrillation (principal); F03.90 Unspecified dementia, unspecified severity, without behavioral disturbance, psychotic disturbance, mood disturbance, and anxiety

== ENCOUNTER → 2018-07-02 | Outpatient (REF) | payer MEDICARE ==
[~2018-07-02] MED LIST changes: -LORA1TAB12 PO
[2018-07-02 13:38] LABS: BASO # 0.1 10^3/uL (0.0-0.2); BASO % 0.6 % (0.0-1.0); EOS % 0.2 % (0.0-3.0); LYMPH # 2.6 10^3/uL (1.5-4.5); LYMPH % 24.6 % (24.0-44.0); MEAN CORPUSCULAR HEMOGLOBIN 30.6 pg (27.0-33.0); MEAN CORPUSCULAR HGB CONC 32.6 g/dl (32.0-36.5); MEAN CORPUSCULAR VOLUME 93.7 fl (80.0-96.0); MONO % 9.6 % (0.0-5.0); NEUTROPHILS # 6.7 10^3/uL (1.8-7.7); NEUTROPHILS % 64.7 % (36.0-66.0); PLATELET COUNT, AUTOMATED 183 10^3/uL (150-450); RED BLOOD COUNT 6.15 10^6/uL (4.00-5.40); WHITE BLOOD COUNT 10.4 10^3/uL (4.0-10.0)
[2018-07-02 13:58] LABS: HEMATOCRIT 57.6 % (36.0-47.0); HEMOGLOBIN 18.8 g/dl (12.0-15.5)
[2018-07-02 14:26] LABS: CALCIUM LEVEL 9.4 MG/DL (8.8-10.2); CREATININE FOR GFR 2.01 MG/DL (0.55-1.30); GLOMERULAR FILTRATION RATE 24.8 (>32); POTASSIUM SERUM 3.9 MEQ/L (3.5-5.1); THYROID STIMULATING HORMONE 3.35 uIU/ML (0.358-3.740)
== END ==
LOC: SKLAB6 12:29
PROVIDERS: ATTEND Family Medicine
DX: R53.83 Other fatigue (principal)

== ENCOUNTER → 2018-07-03 | Outpatient (REF) | payer MEDICARE ==
[~2018-07-03] MED LIST changes: +LORA1TAB12 PO
== END ==
LOC: SKLAB6 21:57
PROVIDERS: ATTEND Family Medicine
DX: R06.00 Dyspnea, unspecified (principal)

== ENCOUNTER 2018-07-04 09:00 | Inpatient (IN) | payer MEDICARE ==
[~2018-07-04] VITALS: Ht 162.6 cm; Wt 59.7 kg
[~2018-07-04 09:00] MED LIST changes: -ACEP650S PR; -ACET1TAB55 PO; -ALB2.5NEB INH; -BISA10SU4 PR; -ENEMENE4 PR; -ENSULIQ64 PO; -LORA1TAB12 PO; -MORP20SOL PO; -MUCI600T31 PO; -NEOSOPO OS; -PEPC1TAB5 PO; -REFR0.5D8 OU; -SCOP1DIS TD; -SENN8.6T7 PO; -SIME80TA PO
[2018-07-04 09:46] LABS: BASO % 0.3 % (0.0-1.0); EOS # 0.2 10^3/uL (0.0-0.50); EOS % 2.2 % (0.0-3.0); HEMOGLOBIN 18.1 g/dl (12.0-15.5); LYMPH # 1.9 10^3/uL (1.5-4.5); MEAN CORPUSCULAR HEMOGLOBIN 30.8 pg (27.0-33.0); MEAN CORPUSCULAR HGB CONC 32.3 g/dl (32.0-36.5); MEAN CORPUSCULAR VOLUME 95.2 fl (80.0-96.0); MONO # 0.8 10^3/uL (0.0-0.8); MONO % 8.7 % (0.0-5.0); NEUTROPHILS # 6.6 10^3/uL (1.8-7.7); NEUTROPHILS % 68.5 % (36.0-66.0); PLATELET COUNT, AUTOMATED 113 10^3/uL (150-450); RED BLOOD COUNT 5.88 10^6/uL (4.00-5.40); WHITE BLOOD COUNT 9.7 10^3/uL (4.0-10.0)
[2018-07-04 09:50] LABS: INR 1.49; PROTHROMBIN TIME 18.3 SECONDS (12.1-14.4)
[2018-07-04 09:51] LABS: VENOUS HCO3 25.2 MEQ/L (23.0-27.0); VENOUS O2 SATURATION 98.7 % (60.0-80.0); VENOUS PARTIAL PRESSURE CO2 32.7 mmHg (38.0-50.0); VENOUS PARTIAL PRESSURE O2 120.4 mmHg (30.0-50.0); VENOUS PH 7.505 UNITS (7.330-7.430); VENOUS STANDARD HCO3 27.2 MEQ/L; VENOUS TOTAL CO2 26.2 MEQ/L (24.0-28.0)
[2018-07-04] MEDS ORDERED: SENN8.6T7 PO (09:55)
[2018-07-04] MEDS ORDERED: NEOSOPO OS (09:55)
[2018-07-04] MEDS ORDERED: BISA10SU4 PR (09:55)
[2018-07-04] MEDS ORDERED: MUCI600T31 PO (09:55)
[2018-07-04] MEDS ORDERED: ACET1TAB55 PO (09:55)
[2018-07-04] MEDS ORDERED: ENSULIQ64 PO (09:55)
[2018-07-04] MEDS ORDERED: SIME80TA PO (09:55)
[2018-07-04] MEDS ORDERED: REFR0.5D8 OU (09:55)
[2018-07-04] MEDS ORDERED: MILK120011 PO (09:55)
[2018-07-04] MEDS ORDERED: ACEP650S PR (09:55)
[2018-07-04] MEDS ORDERED: SCOP1DIS TD (09:55)
[2018-07-04] MEDS ORDERED: LORA-243 PO (09:55)
[2018-07-04] MEDS ORDERED: ENEMENE4 PR (09:55)
[2018-07-04] MEDS ORDERED: PEPC1TAB5 PO (09:55)
[2018-07-04] MEDS ORDERED: MORP20SOL PO (09:55)
[2018-07-04] MEDS ORDERED: ALB2.5NEB INH (09:55)
[2018-07-04] MEDS ORDERED: LIDO5DIS41 TD (09:55)
--- NOTE | 2018-07-04 09:57 | REP ---
CT Head without contrast HISTORY: Altered mental status COMPARISON: 04/29/2018 Areas of decreased attenuation are present in the periventricular and subcortical white matter. This represents small-vessel ischemic disease. There is no intraparenchymal hemorrhage, acute infarct, mass or midline shift. The ventricular system and cortical sulci are dilated consistent with moderate volume loss. There is no extra cerebral collection. There is no fracture. The visualized sinuses are clear. IMPRESSION: 1. Small vessel ischemic disease. 2. Moderate volume loss. Electronically Signed by Pete Sutherland MD 07/04/2018 09:49 A
--- NOTE | 2018-07-04 10:36 | REP ---
AP PORTABLE CHEST: 07/04/2018. Comparison: 05/25/2017. Clinical history: Altered mental status. Findings: There is cardiomegaly with left atrial and ventricular enlargement. The aorta is calcified at the arch and tortuous, unchanged. Underlying fibrosis and COPD is evident. Trace effusions are difficult to exclude. If present, there are smaller than on the previous chest x-ray. I do not see vascular redistribution or griselda pulmonary edema. The pulmonary arteries are mildly prominent suggesting pulmonary artery hypertension. Airway intact. Bones severely demineralized with degenerative changes spine and shoulders. No free air under the diaphragm. Impression: 1. Cardiomegaly with left atrial and ventricular enlargement and blunted CP angles that may reflect small effusions, if present they are decreased compared to previous examination. 2. No pulmonary edema. The vascular congestion on the previous study is not defined today. 3. Tortuous calcified aorta without aneurysm. Osteoporosis and degenerative changes shoulders and spine. Electronically Signed by Lj Esparza MD 07/04/2018 07:39 P
[2018-07-04 10:44] LABS: OSMOLALITY SERUM 303 MOSM/KG (280-301)
[2018-07-04 10:58] LABS: ALT/SGPT 23 U/L (12-78); BILIRUBIN,DIRECT 1.1 MG/DL (0.0-0.2); BILIRUBIN,TOTAL 3.3 MG/DL (0.2-1.0); BLOOD UREA NITROGEN 31 MG/DL (7-18); CALCIUM LEVEL 6.2 MG/DL (8.8-10.2); CARBON DIOXIDE LEVEL 23 MEQ/L (21-32); CHLORIDE LEVEL 117 MEQ/L (98-107); CPK CREATINE PHOSPHOKINASE 2303 U/L (26-192); CREATININE FOR GFR 0.91 MG/DL (0.55-1.30); GLOMERULAR FILTRATION RATE > 60.0 (>32); GLUCOSE, FASTING 116 MG/DL (70-100); MB/CK RELATIVE INDEX 0.53 (< OR =4); POTASSIUM SERUM 3.2 MEQ/L (3.5-5.1); SODIUM LEVEL 148 MEQ/L (136-145); TOTAL PROTEIN 5.4 GM/DL (6.4-8.2); TROPONIN I 0.27 NG/ML (< 0.10)
[2018-07-04] MEDS: NS 1,000 ML IV SCH ×2 (11:31→15:49)
--- NOTE | 2018-07-04 12:26 | REP ---
CT of the abdomen pelvis without IV and oral contrast for difficulty breathing: Comparison is a 03/10/2017. In the visualized lower lung stacy. The cardiac size is enlarged and there is no pericardial effusion. There are small bilateral pleural effusions. There is a 2.8 cm cyst in the dome of the liver, unchanged. The unenhanced hepatic parenchyma is otherwise homogeneous and unremarkable. The gallbladder, pancreas and spleen are normal size and unremarkable. The right adrenal is unremarkable. The left adrenal nodule is unchanged in size . The unenhanced kidneys are unremarkable except for a small Bosniak type 1 cyst at the lower pole of the right kidney, unchanged. There is mild aneurysmal dilatation of the infrarenal abdominal aorta measuring up to 3.0 cm in diameter. There are normal size. Retrocrural lymph nodes. No other periaortic adenopathy or mass. No mesenteric adenopathy. No ascites. Pelvis: The patient has an appendectomy and hysterectomy. There is a large fecal bolus in the rectal ampulla and rectosigmoid colon compatible with impaction. There is no bowel obstruction. There is no pelvic adenopathy or ascites. The bladder is nondistended and cannot be further evaluated. There is bilateral hip osteoarthritis. There is lumbar spine scoliosis and multilevel degenerative disc disease. Impression: Probable fecal impaction. Hepatic cyst, unchanged. Left adrenal nodule, unchanged. Appendectomy, hysterectomy. Small bilateral pleural effusions. Cardiomegaly. Bilateral hip osteoarthritis. Electronically Signed by Mike Georges MD 07/04/2018 12:18 P
--- NOTE | 2018-07-04 12:27 | REP ---
CT CHEST WITHOUT CONTRAST: 07/04/2018. CLINICAL HISTORY: Difficulty breathing, aortic stenosis. TECHNIQUE: Noncontrast images were performed with coronal and sagittal reconstructions provided. COMPARISON: 04/28/2017. FINDINGS: There are bilateral pleural effusions right greater than left and compressive atelectatic changes in the posterior lower lung zones also noted. Some mild cervical bronchiectatic change noted. Mid upper lung zones are clear. There is cardiomegaly with left atrial and ventricular enlargement. Right heart enlargement, coronary calcifications, aortic and mitral valve plane calcifications noted. No pericardial thickening or effusion and no definite hiatal hernia. Fluid in the superior pericardial recess is noted. I see no pathologic sized mediastinal or hilar adenopathy. Diffuse atherosclerotic calcifications arch and scattered in the descending aorta without gross aneurysm. I see no axillary or supraclavicular mass. Degenerative disc changes with vacuum phenomenon lower thoracic upper lumbar spine with demineralization and marginal osteophytes present throughout. A levoconvex curvature at the thoracolumbar junction. No compression fractures. Sternum, manubrium, medial clavicles all intact. AC joint arthritis, glenohumeral joint arthritis noted. The scapula and ribs without acute fracture. IMPRESSION: 1. Bilateral pleural effusions right greater than left with basilar compressive atelectatic change. 2. Cardiomegaly with left atrial and ventricular enlargement along with right heart enlargement. No pericardial thickening or effusion. Coronary artery calcifications and extensive calcification at the aortic valve plane and the mitral annulus. No griselda edema. Mid and upper lung zones are clear. 3. Calcified tortuous ectatic aorta. This is stable. Electronically Signed by Lj Esparza MD 07/04/2018 07:45 P
[2018-07-04 12:43] LABS: INFLUENZA A AMPLIFICATION NEGATIVE (NEGATIVE); INFLUENZA B AMPLIFICATION NEGATIVE (NEGATIVE)
[2018-07-04] MEDS ORDERED: LACTULOSE 20 GM/30 ML SYRUP UD PR ONE (12:45)
[2018-07-04 12:47] LABS: MYOGLOBIN 2684 NG/ML (13-71)
[2018-07-04] MEDS ORDERED: MORPHINE SULF IN 0.9% NACL 100 MG in APPROPRIATE DILUENT 1 EA IV SCH ×2 (15:21)
--- NOTE | 2018-07-04 16:45 | CR.PDOC ---
Subjective General Date/Time Seen The patient was seen on 07/04/18 at 16:43. Subject Chief Complaint/History The patient is a 87-year-old female admitted with a reason for visit of Ischemic Leg. Current Medications Current Medications Current Medications Albuterol Sulfate (Proventil Neb) 2.5 mg DAILY@1400 INH ; Start 07/05/18 at 14:00 Home Med (Med Rec Complete!) ASDIRECTED XX ; Start 07/04/18 at 10:00; Stop 07/04/18 at 10:00; Status DC Lorazepam (Ativan) 1 mg Q4HP PRN IV PAIN OR DISCOMFORT; Start 07/04/18 at 15:30 Morphine Sulfate 100 mg/IV Miscellaneous Supplies 100 ml @ 2 mls/hr Q24H IV ; Start 07/04/18 at 15:21 Sodium Chloride 1,000 ml @ 250 mls/hr Q4H IV Last administered on 07/04/18at 15:49; Start 07/04/18 at 11:15 Allergies Coded Allergies: Bee Venom (Unverified Allergy, Severe, ANAPHYLAXIS, 09/23/14) Home Medications Home Medications Scheduled (Ensure Enlive) 1 Liq Liq, 120 ML PO BID, (Reported) Albuterol Sulfate (Albuterol Sulfate) 2.5 Mg/0.5 Ml Neb, 2.5 MG INH DAILY, (Reported) 1400 Carboxymethylcellulose Sodium (Refresh Tears) 0.5 % Jose, 1 DROP OU QID, (Reported) Docusate Sod/Senna (Senna S 8.6-50 mg) 1 Tab Tab, 1 TAB PO BID, (Reported) Famotidine (Pepcid) 20 Mg Tab, 20 MG PO DAILY, (Reported) Guaifenesin (Mucinex) 600 Mg Tab, 600 MG PO BID, (Reported) Loratadine (Loratadine) 10 Mg Tab, 10 MG PO DAILY, (Reported) Neomycin/Polymyx/Bacitr (Neosporin Opth Oint [id number]) 1 Dose/3.5 Gm Oint, 1 APLCT OS TID, (Reported) FOR 6 DAYS, FINISH DATE 07/05/18 Scheduled PRN Acetaminophen (Acetaminophen) 325 Mg Tab, 325 MG PO Q4H PRN for PAIN, (Reported) Acetaminophen (Acephen) 650 Mg Sup, 650 MG WA Q4H PRN for PAIN / FEVER, (Reported) Bisacodyl (Bisacodyl) 10 Mg Sup, 10 MG WA DAILY PRN for CONSTIPATION, (Reported) Lidocaine (Lidoderm) 5 % Dis, 1 PATCH TD DAILY PRN for PAIN, (Reported) Apply to area of pain, Remove patch after 12 hours Milk Of Magnesia (Milk of Magnesia) 1,200 Mg/15 Ml Annie, 30 ML PO DAILY PRN for CONSTIPATION, (Reported) Morphine Sulfate (Morphine Sulfate Concentrate) 2,400 Mg/120 Ml Conc, 0.25 ML PO Q2H PRN for PAIN OR DYSPNEA, (Reported) Scopolamine (Scopolamine) 1 Mg/3 Days Dis, 1 MG TD Q3RD PRN for EXCESSIVE SECRETIONS, (Reported) Simethicone (Simethicone) 80 Mg Chew, 80 MG PO TID PRN for DYSPEPSIA, (Reported) Sodium Phosphate/Biphosphate (Enema 7-19 gm/118Ml) 1 John John, 1 JOHN WA DAILY PRN for CONSTIPATION, (Reported) Current Medications Current Medications Albuterol Sulfate (Proventil Neb) 2.5 mg DAILY@1400 INH ; Start 07/05/18 at 14:00 Home Med (Med Rec Complete!) ASDIRECTED XX ; Start 07/04/18 at 10:00; Stop 07/04/18 at 10:00; Status DC Lorazepam (Ativan) 1 mg Q4HP PRN IV PAIN OR DISCOMFORT; Start 07/04/18 at 15:30 Morphine Sulfate 100 mg/IV Miscellaneous Supplies 100 ml @ 2 mls/hr Q24H IV ; Start 07/04/18 at 15:21 Sodium Chloride 1,000 ml @ 250 mls/hr Q4H IV Last administered on 07/04/18at 15:49; Start 07/04/18 at 11:15 Assessment/Plan Assessment 87-year-old female with ischemia of the left lower extremity which is nonreversible. Plan Discussed at length and in detail with the patient's and her daughter that the patient would require a left above-knee amputation and is not a candidate for revascularization of her left lower extremity due to nonreversible ischemia and infarction of the left foot and calf. Patient's and her daughter wish to consider their options and are considering left above-knee amputation versus comfort measures. Huang Pride MD Jul 04, 2018 16:45
[2018-07-04 17:15] VITALS: BP 108/74
[2018-07-04] MEDS ORDERED: SCOPOLAMINE 1MG TRANSDERMAL PATCH TOP SCH (18:15)
[2018-07-04] MEDS: LORazepam 2 MG/ML VIAL (J2060) IV PRN (18:20)
[2018-07-04] MEDS: ACETAMINOPHEN 650 MG SUPP PR PRN (18:21)
--- NOTE | 2018-07-04 19:16 | ECGEPIP ---
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
--- NOTE | 2018-07-04 21:27 | HPE ---
DATE OF ADMISSION: 07/04/2018 87-year-old female with a past medical history of advanced dementia, aortic stenosis, hypertension, hyperlipidemia, atrial fibrillation not on anticoagulation, who presents to the emergency room from the long-term due to severe discoloration and possible gangrene of the left foot. The patient was seen by Dr. Pride, our vascular surgeon, who said that this was definitely an ischemic foot and revascularization is impossible and the patient may need an above knee amputation. According to the , the was having discoloration for approximately a week now, but according to the long-term she did just discover it today, hence why they brought her to the emergency room. Upon further discussion with the , who is the proxy, we came to the conclusion that the best route for the patient's management is to make her comfort measures only, he agreed and that is what is going to be. He does not want the amputation done on the patient. She will be admitted for hospice care. The patient is completely obtunded and we could not get any history from her. PAST MEDICAL HISTORY: Again, past medical history of: 1. Atrial fibrillation. 2. Hypertension. 3. Hyperlipidemia. 4. History of aortic stenosis. 5. Advanced dementia. PAST SURGICAL HISTORY: 1. Hysterectomy. 2. Arthroscopy of the right knee. ALLERGIES: She has drug allergies to CODEINE, MORPHINE. FAMILY HISTORY: Cannot be assessed, the patient is demented. SOCIAL HISTORY: Cannot be assessed, the patient is demented. MEDICATIONS: She takes at the long-term: - Tylenol as needed - albuterol as needed - artificial tears as needed - Colace one tablet by mouth twice a day - Ensure 120 mL by mouth twice a day - famotidine 20 mg by mouth daily - guaifenesin 600 mg by mouth twice a day - loratadine 10 mg by mouth daily - scopolamine 1 mg transdermal every 3 days daily as needed - simethicone 80 mg by mouth twice a day as needed REVIEW OF SYSTEMS: Cannot be assessed, the patient is demented. PHYSICAL EXAMINATION: VITAL SIGNS: Blood pressure 172/66, heart rate is 90 and irregular, respiratory rate 22, temperature 99.3, oxygen saturation is 96% on room air. Head is atraumatic, normocephalic. Neck is supple with no jugular venous distention (JVD). Dry mucous membranes noted. Lungs clear to auscultation. S1, S2 audible. No murmurs appreciated. Abdomen is soft. Positive bowel sounds. No pedal edema. Skin examination of the left foot is gangrenous appearing from the left knee all the way down to the foot. There is no appreciable dorsal pedal pulse in the left foot. Neurologic examination, the patient is obtunded. LABORATORIES: WBC 9.7, hemoglobin 18.1, hematocrit 56, platelets 113,000. Sodium 148, potassium 3.2, chloride 117, CO2 is 23, BUN is 31, creatinine 0.91, lactic acid is 2.0, troponin is 0.27, TSH is 1.49. IMPRESSION: 1. Left leg ischemia. PLAN: The patient is to be admitted to the medical/surgical floor. We will initiate comfort measures only protocol and make the patient as comfortable as possible for end of life.
[2018-07-05] MEDS: LORazepam 2 MG/ML VIAL (J2060) IV PRN ×3 (04:18→14:17)
[2018-07-05] MEDS: ACETAMINOPHEN 650 MG SUPP PR PRN ×2 (04:18→08:41)
[2018-07-05] MEDS ORDERED: SCOP1DIS TOP (10:20)
[2018-07-05] MEDS ORDERED: MORP20SO3 SL (10:20)
[2018-07-05] MEDS ORDERED: LORA1TAB12 PO (10:20)
[2018-07-05] MEDS: MORPHINE 10MG/0.5ML ORAL CONCENTRATE SOLUTION U/D SL PRN ×3 (10:29→14:17)
[2018-07-05] MEDS ORDERED: ALBUTEROL SULFATE 2.5 MG/0.5 ML INH NEB SOLN INH SCH (14:00)
--- NOTE | 2018-07-05 15:52 | DSES ---
DATE OF ADMISSION: 07/04/2018 DATE OF DISCHARGE: 07/05/2018 HISTORY: This is an 87-year-old female resident at [facility] who was transferred over to [facility] with severe discoloration and possible gangrene of her left foot, who was seen by Dr. Pride in the emergency room, who recommended amputation above the knee. After discussion about surgical plans, they opted for comfort measures only for the patient secondary to her left lower extremity ischemia. Comfort care orders were initiated after her admission. At this point, she will be transferred back over to her bed at [facility] on comfort measures only. DISCHARGE DIAGNOSES: 1. Left lower extremity ischemia. 2. Atrial fibrillation. 3. Hypertension. 4. Advanced dementia. DISCHARGE MEDICATIONS: Include: - lorazepam 1 mg by mouth every 4 hours as needed for anxiety, agitation - morphine sulfate 5 mg sublingual every 30 minutes as needed for pain - scopolamine patch 1 mg topically every 72 hours as needed for secretions - acetaminophen 650 mg per rectum every 4 hours as needed for pain or fever DISCHARGE PLAN: Continue to implement comfort measures only at [facility].
== END 2018-07-05 14:25 | DRG 303 ==
LOC: EDBD 09:00 → M ED 09:00 → M ED INP 15:21 → M MSPAV 17:32
PROVIDERS: ADMIT Internal Medicine; ATTEND Family Medicine
DX: I99.8 Other disorder of circulatory system (principal); I48.91 Unspecified atrial fibrillation; I10 Essential (primary) hypertension; E78.5 Hyperlipidemia, unspecified; I35.0 Nonrheumatic aortic (valve) stenosis; F03.90 Unspecified dementia, unspecified severity, without behavioral disturbance, psychotic disturbance, mood disturbance, and anxiety; Z88.5 Allergy status to narcotic agent; Z79.899 Other long term (current) drug therapy; Z91.038 Other insect allergy status; M62.272 Nontraumatic ischemic infarction of muscle, left ankle and foot; M62.262 Nontraumatic ischemic infarction of muscle, left lower leg; R53.83 Other fatigue; Z51.5 Encounter for palliative care

== ENCOUNTER → 2018-07-04 | Outpatient (REF) | payer MEDICARE ==
[2018-07-04 08:17] LABS: HEMATOCRIT 55.5 % (36.0-47.0); HEMOGLOBIN 17.8 g/dl (12.0-15.5); MEAN CORPUSCULAR HEMOGLOBIN 30.7 pg (27.0-33.0); MEAN CORPUSCULAR HGB CONC 32.1 g/dl (32.0-36.5); MEAN CORPUSCULAR VOLUME 95.7 fl (80.0-96.0); PLATELET COUNT, AUTOMATED 104 10^3/uL (150-450)
[2018-07-04 09:06] LABS: CALCIUM LEVEL 8.3 MG/DL (8.8-10.2); CREATININE FOR GFR 1.22 MG/DL (0.55-1.30); GLOMERULAR FILTRATION RATE 44.2 (>32)
== END ==
LOC: SKLAB6 06:00
PROVIDERS: ATTEND Family Medicine
DX: E86.0 Dehydration (principal); E87.0 Hyperosmolality and hypernatremia